=== PATIENT | female | born 1940 | race Caucasian/White ===

== ENCOUNTER → 2020-01-20 09:22 | Outpatient (CLI) | payer MEDICARE, SELFPAY ==
--- NOTE | ~2020-01-20 | MM_ITS ---
Correction: Additional spot compression and mediolateral views with possible follow-up breast ultraso und recommended. Reviewed, dictated and finalized at location A.
--- NOTE | ~2020-01-20 | MM_ITS ---
EXAMINATION: MM screening rafita BI w pedro luis HISTORY: Screening mammogram TECHNIQUE: Craniocaudal and mediolateral oblique 3-D tomosynthesis images were obtained and synthetic 2-D images were generated. CAD analysis was submitted and interpreted. COMPARISON: Comparison to multiple prior studies sequentially, with oldest reviewed study dated 05/11. BREAST PARENCHYMAL COMPOSITION: There are scattered areas of fibroglandular density. FINDINGS: There is a focal asymmetry lateral aspect of the right breast on CC view. The left breast i s stable without evidence for malignancy. IMPRESSION: 1. Focal right breast asymmetry laterally. 2. Additional mammographic views and possible breast ultrasound are recommended. BI-RADS Category 0: Incomplete: Needs additional imaging evaluation. Reviewed, dictated and finalized at location A. BRANDER IMPRESSION: 1. Focal right breast asymmetry laterally. 2. Additional mammographic views and possible breast ultrasound are recommended . BI-RADS Category 0: Incomplete: Needs additional imaging evaluation.
== END ==
PROVIDERS: Visit Provider Internal Medicine
DX: Z12.31 Encounter for screening mammogram for malignant neoplasm of breast (principal); R92.8 Other abnormal and inconclusive findings on diagnostic imaging of breast
CPT/HCPCS: 77063; 77067

== ENCOUNTER → 2020-02-03 09:05 | Outpatient (CLI) | payer MEDICARE, SELFPAY ==
--- NOTE | ~2020-02-03 | MMUS_ITS ---
EXAMINATION: MM diagnostic mammo unilat RT, US breast RT limited HISTORY: Follow-up right breast asymmetry TECHNIQUE: Additional 3-D tomosynthesis images of the right breast were performed and synthetic 2-D i mages were generated. CAD analysis was submitted and interpreted. High resolution right breast ultras ound was performed. COMPARISON: Comparison to multiple prior studies sequentially, with oldest reviewed study dated 05/13. FINDINGS: MAMMOGRAPHIC FINDINGS: Focal asymmetry laterally in the right breast is less dense with spot compression on CC view. No amanda esponding abnormality is identified on medial lateral view. There are surgical changes in the upper c entral aspect of the right breast. No mammographic evidence for malignancy in the right breast. ULTRASOUND: Right breast ultrasound: At 10:00, 5 cm from the nipple there is a 4 mm intramammary lymph node. No suspicious sonographic abn ormalities to suggest malignancy. IMPRESSION: 1. No mammographic or sonographic evidence for malignancy in the right breast. 2. Routine yearly screening mammogram and regular clinical breast examination are recommended. BI-RADS Category 2: Benign finding(s). Reviewed, dictated and finalized at location A. IMPRESSION: 1. No mammographic or sonographic evidence for malignancy in the right breast. 2. Routine yearly screening mammogram and regular clinical breast examination a re recommended. BI-RADS Category 2: Benign finding(s).
== END ==
PROVIDERS: PCP Internal Medicine; Visit Provider Internal Medicine
DX: R92.8 Other abnormal and inconclusive findings on diagnostic imaging of breast (principal)
CPT/HCPCS: 76642; 77065

== ENCOUNTER 2020-07-19 08:13 | Outpatient (CLI) | payer MEDICARE, SELFPAY ==
--- NOTE | ~2020-07-19 | CT_ITS ---
EXAMINATION: CT shoulder LT wo con DATE: 07/19/2020 08:45 INDICATION: Osteoarthritis of left shoulder. TECHNIQUE: Computed tomography (CT) of the left shoulder was performed without intravenous contrast. Automated exposure control and iterative reconstruction technique were employed. The dose-length prod uct was 479.95 mGy-cm. COMPARISON: Left shoulder radiographs 07/06/2020 FINDINGS: Cardiomegaly is noted. There are coronary artery calcifications. There are calcifications o f aortic valve. No pericardial effusion. The acromion undersurface is flat in morphology (type I). Th ere is mild acromioclavicular joint osteoarthritis. There is severe glenohumeral joint osteoarthritis . There is no asymmetric fatty atrophy of the rotator cuff muscle bellies. There is kyphosis of thora cic spine with mild chronic anterior wedging of multiple vertebral bodies. There is severe cervical a nd thoracic spondylosis. There is a surgical clip in left breast. IMPRESSION: 1. Severe left glenohumeral joint osteoarthritis. Reviewed, dictated and finalized at location A.
== END 2020-07-19 08:14 | disposition home or self-care (01) ==
LOC: ANHIMG 08:20
PROVIDERS: PCP Internal Medicine; Visit Provider Orthopaedic Surgery
DX: M19.012 Primary osteoarthritis, left shoulder (principal)
CPT/HCPCS: 36415; 73200; 80048; 85025; 85610; 85730; 87081; 93005

== ENCOUNTER 2020-07-19 10:00 | Outpatient (CLI) | payer MEDICARE, SELFPAY ==
--- NOTE | 2020-07-19 11:24 | ECG_ITS ---
Measurements Intervals [place] Rate: 45 P: -18 WI: 192 QRS: -33 QRSD: 130 T: 79 QT: 464 QTc: 402 Interpretive Statements SINUS BRADYCARDIA ATRIAL PREMATURE COMPLEX LEFT AXIS DEVIATION BORDERLINE AV CONDUCTION DELAY INTRAVENTRICULAR CONDUCTION DELAY LEFT VENTRICULAR HYPERTROPHY AND ST-T CHANGE LATERAL INFARCT, AGE INDETERMINATE BASELINE ARTIFACT- I, II, III, AVR, AVL, AVF ABNORMAL ECG Electronically Signed On 07-19-2020 11:42:56 CDT by Galdino Borjas D.O.
[2020-07-19 11:44] LABS: Basophils Percent Auto 0.2 % (0.2-1.2); Eosinophils Percent Auto 0.3 % (0-4.4); Hematocrit 34.1 % (37.0-47.0); Hemoglobin 11.2 g/dL (12.0-15.0); Immature Granulocyte Absolute 0.01 K/mm3 (0.00-0.031); Immature Granulocyte Percent A 0.2 % (0-0.5); Lymphocytes Absolute Auto 1.69 K/mm3 (0.9-3.2); Lymphocytes Percent Auto 26.3 % (18.3-44.2); Mean Corpuscular HGB Conc 32.8 g/dl (32-36); Mean Corpuscular Hemoglobin 30.1 pg (26-34); Mean Corpuscular Volume 91.7 fl (80-100); Mean Platelet Volume 9.2 fl (7.4-10.4); Monocytes Absolute Auto 0.5 K/mm3 (0.1-0.6); Neutrophils Absolute Auto 4.2 K/mm3 (1.3-6.7); Platelet Count Result 225 k/mm3 (150-375); Red Blood Count 3.72 M/mm3 (4.2-5.4); Red Cell Distribution Width 13.9 % (11.5-14.5); White Blood Count 6.4 K/mm3 (4.5-10.0)
[2020-07-19 11:54] LABS: Prothrombin Time 13.3 Seconds (11.1-14.7)
[2020-07-19 11:55] LABS: Partial Thromboplastin Time 27.2 SECONDS (22.3-36.8)
[2020-07-19 11:59] LABS: Anion Gap 6 mmol/L (8-16); Blood Urea Nitrogen 37 mg/dL (7-17); Calcium 8.9 mg/dL (8.4-10.2); Carbon Dioxide 27 mmol/L (22-30); Chloride 105 mmol/L (98-107); Estimated Glomerular Filt Rate 40; Glucose 92 mg/dL (65-105); Potassium 3.5 mmol/L (3.4-5.0); Sodium 138 mmol/L (137-145)
== END 2020-07-19 10:01 | disposition home or self-care (01) ==
LOC: ANHSURGERY 10:03
PROVIDERS: Anesthesiology; PCP Internal Medicine; Visit Provider Orthopaedic Surgery
DX: M19.012 Primary osteoarthritis, left shoulder (principal); I10 Essential (primary) hypertension; N28.9 Disorder of kidney and ureter, unspecified; Z01.818 Encounter for other preprocedural examination; I45.9 Conduction disorder, unspecified
CPT/HCPCS: 36415; 80048; 85025; 85610; 85730; 87081; 93005

== ENCOUNTER 2020-08-12 00:41 | Outpatient (CLI) | payer MEDICARE, SELFPAY ==
[2020-08-14 12:00] LABS: SARS-CoV-2 RNA PCR Positive
== END 2020-08-12 00:42 | disposition home or self-care (01) ==
LOC: ANHCOVIDDT 00:41
PROVIDERS: PCP Internal Medicine; Visit Provider Orthopaedic Surgery
DX: Z01.812 Encounter for preprocedural laboratory examination (principal); U07.1 COVID-19
CPT/HCPCS: 87635; C9803; U0003

== ENCOUNTER 2020-08-30 00:35 | Outpatient (CLI) | payer MEDICARE, SELFPAY ==
[2020-08-31 13:52] LABS: SARS-CoV-2 RNA PCR Positive
== END 2020-08-30 00:36 | disposition home or self-care (01) ==
LOC: ANHCOVIDDT 00:36
PROVIDERS: PCP Internal Medicine; Visit Provider Orthopaedic Surgery
DX: Z01.812 Encounter for preprocedural laboratory examination (principal); U07.1 COVID-19
CPT/HCPCS: 87635; C9803; U0003

== ENCOUNTER 2021-04-03 13:14 | Outpatient (CLI) | payer MEDICARE, SELFPAY ==
--- NOTE | ~2021-04-03 | CT_ITS ---
EXAMINATION: CT shoulder RT wo con DATE: 04/03/2021 14:08 INDICATION: Right shoulder primary osteoarthritis. TECHNIQUE: Computed tomography (CT) of the right shoulder was performed without intravenous contrast. Automated exposure control and iterative reconstruction technique were employed. The dose-length pro duct was 469.33 mGy-cm. COMPARISON: Right shoulder radiographs 03/28/2021 FINDINGS: Bone alignment is normal. No fracture. There is moderate osteoarthritis of acromioclavicula r joint. There is severe osteoarthritis of glenohumeral joint including glenoid bone volume loss. The re is a moderate-sized glenohumeral joint effusion. There is mild fatty atrophy of supraspinatus and subscapularis muscle bellies. IMPRESSION: 1. Severe glenohumeral joint osteoarthritis. 2. Moderate-sized glenohumeral joint effusion. Reviewed, dictated and finalized at location A.
== END 2021-04-03 13:15 | disposition home or self-care (01) ==
PROVIDERS: PCP Internal Medicine; Visit Provider Orthopaedic Surgery
DX: M19.011 Primary osteoarthritis, right shoulder (principal); M25.411 Effusion, right shoulder
CPT/HCPCS: 73200

== ENCOUNTER 2021-04-25 13:23 | Outpatient (CLI) | payer MEDICARE, SELFPAY ==
[2021-04-25 14:56] LABS: Basophils Percent Auto 0.6 % (0.2-1.2); Eosinophils Absolute Auto 0.1 K/mm3 (0-0.3); Eosinophils Percent Auto 2.1 % (0-4.4); Hemoglobin 11.8 g/dL (12.0-15.0); Immature Granulocyte Absolute 0.01 K/mm3 (0.00-0.031); Immature Granulocyte Percent A 0.2 % (0-0.5); Lymphocytes Absolute Auto 1.37 K/mm3 (0.9-3.2); Mean Corpuscular HGB Conc 31.9 g/dl (32-36); Mean Corpuscular Hemoglobin 30.2 pg (26-34); Mean Corpuscular Volume 94.6 fl (80-100); Mean Platelet Volume 8.7 fl (7.4-10.4); Monocytes Absolute Auto 0.5 K/mm3 (0.1-0.6); Monocytes Percent Auto 11.2 % (2.6-8.5); Neutrophils Absolute Auto 2.7 K/mm3 (1.3-6.7); Neutrophils Percent Auto 56.9 % (45.5-73.1); Platelet Count Result 217 k/mm3 (150-375); Red Blood Count 3.91 M/mm3 (4.2-5.4); Red Cell Distribution Width 13.9 % (11.5-14.5); White Blood Count 4.7 K/mm3 (4.5-10.0)
[2021-04-25 15:07] LABS: Anion Gap 9 mmol/L (8-16); Blood Urea Nitrogen 28 mg/dL (7-17); Calcium 9.5 mg/dL (8.4-10.2); Carbon Dioxide 29 mmol/L (22-30); Chloride 104 mmol/L (98-107); Estimated Glomerular Filt Rate 36; Glucose 83 mg/dL (65-105); Potassium 4.1 mmol/L (3.4-5.0); Sodium 142 mmol/L (137-145)
== END 2021-04-25 13:24 | disposition home or self-care (01) ==
LOC: ANHSURGERY 13:28
PROVIDERS: Anesthesiology; PCP Internal Medicine; Visit Provider Orthopaedic Surgery
DX: M19.011 Primary osteoarthritis, right shoulder (principal); Z51.81 Encounter for therapeutic drug level monitoring; Z79.899 Other long term (current) drug therapy; Z01.818 Encounter for other preprocedural examination
CPT/HCPCS: 36415; 80048; 85025; 86850; 86900; 86901; 87081

== ENCOUNTER → 2021-04-30 12:06 | Outpatient (CLI) | payer MEDICARE, SELFPAY ==
--- NOTE | ~2021-04-30 | MM_ITS ---
EXAMINATION: MM screening rafita BI w pedro luis HISTORY: Screening mammogram, history of bilateral breast cancer TECHNIQUE: Craniocaudal and mediolateral oblique 3-D tomosynthesis images were obtained and synthetic 2-D images were generated. CAD analysis was submitted and interpreted. COMPARISON: 02/03/2020, 01/20/2020, 10/14/2017, 10/15/2016 BREAST PARENCHYMAL COMPOSITION: There are scattered areas of fibroglandular density. FINDINGS: Stable lumpectomy changes are noted in the breasts. There is no evidence of suspicious mass , calcification, or architectural distortion to suggest malignancy in either breast. There has been n o suspicious interval change. IMPRESSION: 1. No mammographic evidence of malignancy. 2. Recommend routine screening mammography while the patient remains in good health. BI-RADS Category 2: Benign finding(s). Reviewed, dictated and finalized at location A. IMPRESSION: 1. No mammographic evidence of malignancy. 2. Recommend routine screening mammography while the patient remains in good he alth. BI-RADS Category 2: Benign finding(s).
== END ==
PROVIDERS: PCP Internal Medicine; Visit Provider Internal Medicine
DX: Z12.31 Encounter for screening mammogram for malignant neoplasm of breast (principal)
CPT/HCPCS: 77063; 77067

== ENCOUNTER → 2021-05-05 00:07 | Outpatient (CLI) | payer MEDICARE, SELFPAY ==
[2021-05-05 19:27] LABS: SARS-CoV-2 RNA PCR Negative
== END ==
PROVIDERS: PCP Internal Medicine; Visit Provider Orthopaedic Surgery
DX: Z01.812 Encounter for preprocedural laboratory examination (principal); Z20.822 Contact with and (suspected) exposure to COVID-19
CPT/HCPCS: C9803; U0003; U0005

== ENCOUNTER 2021-05-07 07:55 | Outpatient (CLI) | payer MEDICARE, SELFPAY ==
--- NOTE | ~2021-05-07 | NM_ITS ---
EXAMINATION: NM radha stress w perfusion DATE: 05/07/2021 12:17 INDICATION: Abnormal EKG TECHNIQUE: Rest images were obtained following intravenous administration of mCi Tc99m tetrofosmin (M yoview). The patient was infused intravenously with Lexiscan (Regadenoson). Then, mCi Tc99m tetrofosm in (Myoview) was administered intravenously, and stress images were obtained. Data was reconstructed into short axis and horizontal and vertical long axis SPECT images. Gated SPECT images were also obta ined. COMPARISON: None. FINDINGS: Possible small fixed mild perfusion defect at the apical and apical lateral segments seen o n the non gated stress and rest images which nearly normalizes on the gated stress images particularl y on the images during systole. No reversible ischemia. There is normal left ventricular chamber size , wall motion and ejection fraction. Left ventricular ejection fraction measures 60%. IMPRESSION: 1. Mild nonreversible perfusion defect at the apical and apical lateral segments on non gated imaging which appears to nearly normalize on the gated stress images, equivocal for small mild infarct versu s artifact. No reversible ischemia. 2. Left ventricular ejection fraction measuring 60%. Reviewed, dictated and finalized at location A. IMPRESSION: 1. Mild nonreversible perfusion defect at the apical and apical lateral segment s on non gated imaging which appears to nearly normalize on the gated stress im ages, equivocal for small mild infarct versus artifact. No reversible ischemia. 2. Left ventricular ejection fraction measuring 60%.
--- NOTE | 2021-05-07 08:33 | EST_ITS ---
Patient Info Name: Karen Trammell Age: 80 years : 1940 Gender: Female Ht: 67 in Wt: 155 lbs BSA: 1.83 m2 Exam Date: 05/07/2021 9:10 AM Exam Location: [facility] Stress Patient Status: Outpatient Admit Date: 05/07/2021 Staff Ordering Physician: Omar Romero MD Attending Provider: Omar Romero MD Exercise Technologist: Shameka Reyes RDCS Exercise Physician: Galdino Borjas DO Exam Type: CA stress radha w NM Study Info Indications R94.31 - Abnormal electrocardiogram ECG EKG A regadenoson stress test was performed. Summary 1. 1. Negative lexiscan stress test for ischemic ST changes by ECG criteria. 2. 2. Baseline hypertension. 3. 3. Nuclear scan to follow and will be reported separately. Please correlate with it. 4. 4. Patient informed of the above results. Protocol: Lexiscan Stress ECG Details Stage: REST Duration (min): 6 min : 11 sec HR (bpm): 69 SBP (mmHg): 171 DBP (mmHg): 87 Stage: REST Duration (min): 12 min : 58 sec HR (bpm): 65 SBP (mmHg): 171 DBP (mmHg): 87 Stage: STAGE 1 Duration (min): 1 min : 0 sec HR (bpm): 75 SBP (mmHg): 141 DBP (mmHg): 80 Stage: RECOVERY Duration (min): 1 min : 0 sec HR (bpm): 76 SBP (mmHg): 156 DBP (mmHg): 73 Stage: RECOVERY Duration (min): 2 min : 0 sec HR (bpm): 77 SBP (mmHg): 156 DBP (mmHg): 73 Stage: RECOVERY Duration (min): 3 min : 0 sec HR (bpm): 71 SBP (mmHg): 157 DBP (mmHg): 71 Stage: RECOVERY Duration (min): 3 min : 3 sec HR (bpm): 72 SBP (mmHg): 157 DBP (mmHg): 71 Rest HR: 65 bpm Peak HR: 81 bpm Rest Sys BP: 171 mmHg Peak Sys BP: 157 mmHg Max Pred HR: 140 bpm % Max Pred HR: 58 % Target HR: 119 bpm Max RPP: 12,717 bpm*mmHg Termination Reason: Completed protocol Cardiac Symptoms: Shortness of breath Total Time: 1 min : 0 sec Rest Joel BP: 87 mmHg Peak Joel BP: 71 mmHg Total Dose: 0.4 mg Resting ECG Sinus rhythm with sinus arrhythma, PAC's, IVCD, LVH. Stress ECG No ST changes. Arrhythmias None. Report Signatures
== END 2021-05-07 07:56 | disposition home or self-care (01) ==
LOC: ANHCARD 07:57
PROVIDERS: PCP Internal Medicine; Visit Provider Orthopaedic Surgery
DX: R94.31 Abnormal electrocardiogram [ECG] [EKG] (principal)
CPT/HCPCS: 78452; 93017; A9502; J2785

== ENCOUNTER 2021-05-08 00:10 | Day surgery (SDC) | payer MEDICARE, SELFPAY ==
[2021-04-25 13:47] VITALS: BP 139/68; PULSE 63; RESP 18; TEMP 37.3; O2SAT 97; BMI 24.3
[2021-05-08] VITALS (14 sets, daily range): BP systolic 124–148; BP diastolic 48–77; PULSE 52–76; RESP 14–16; TEMP 36.1–36.5; O2SAT 88–100
--- NOTE | ~2021-05-08 | XR_ITS ---
EXAMINATION: XR shoulder RT min 2V DATE: 05/08/2021 10:41 INDICATION: Postoperative evaluation following right reverse total shoulder arthroplasty. TECHNIQUE: AP internally and externally rotated, AP oblique externally rotated and transscapular Y vi ews of the right shoulder were obtained. COMPARISON: None FINDINGS: Noncemented reverse right total shoulder arthroplasty which is in near-anatomic alignment. Expected p ostoperative gas in the surrounding soft tissues. No fracture. Mild right acromioclavicular osteoarth ritis. Multiple surgical clips at the right axilla. Soft tissues are unremarkable. IMPRESSION: Expected appearance post right reverse total shoulder arthroplasty which is in near-anatomic alignmen t. Reviewed, dictated and finalized at location A. IMPRESSION: Expected appearance post right reverse total shoulder arthroplasty which is in near-anatomic alignment.
[2021-05-08] MEDS: TRANEXAMIC ACID 1,000MG/ISO100 1,000 MG/100 ML BAG 200 MG IVPB (06:34)
[2021-05-08] MEDS: ACETAMINOPHEN 500 MG TABLET 1000 MG PO (06:34)
[2021-05-08] MEDS: LACTATED RINGERS 1,000 ML 30 ML IV CONT ×2 (06:45→10:24)
--- NOTE | 2021-05-08 06:55 | WPDANESEPPF ---
Anes - Initial Pre Proc Eval Procedure: Operation Date: 05/08/21 07:30 Proposed Procedures p Right Total Reverse Shoulder Arthroplasty - Omar Romero MD Date/Time: 05/08/21 06:55 Surgeon: Omar Romero MD Pre Op Diagnosis: Right Shoulder PRIMARY OA Patient Data Age: 80 Gender: F Height: 1.7 m Weight: 70.5 kg Last Vital Signs Temp 37.3 C 04/25/21 13:47 Pulse 63 04/25/21 13:47 Resp 18 04/25/21 13:47 BP 139/68 04/25/21 13:47 Pulse Ox 97 04/25/21 13:47 Allergies Allergy/AdvReac Type Severity Reaction Status Date / Time levofloxacin AdvReac Diarrhea Verified 04/25/21 13:38 Home Medications Medication Instructions Recorded Confirmed Type lactobacillus combination no.9 4 4,000 mmu cells PO BID 04/03/20 04/25/21 History billion cell capsule multivitamin 1 tablet PO DAILY 04/03/20 04/25/21 History ascorbic acid (vitamin C) [Vitamin 500 mg PO DAILY 07/19/20 04/25/21 History C] cholecalciferol (vitamin D3) 50 mcg PO DAILY 07/19/20 04/25/21 History [Vitamin D3] hydrocodone-acetaminophen 1 tablet PO Q6-8H PRN 07/19/20 04/25/21 History loperamide [Imodium A-D] 8 mg PO BID 07/19/20 04/25/21 History potassium chloride 10 meq PO DAILY 07/19/20 04/25/21 History quinapril-hydrochlorothiazide 1 tablet PO QACLUNCH 07/19/20 04/25/21 History gabapentin 300 mg capsule 300 mg PO HS cap 08/09/20 04/25/21 History aspirin [Adult Aspirin EC Low 81 mg PO DAILY 04/25/21 04/25/21 History Strength] cinnamon bark [Cinnamon] 500 mg PO DAILY 04/25/21 04/25/21 History sulfamethoxazole-trimethoprim 1 tablet PO BID 04/25/21 04/25/21 History vitamin E mixed [Natural Vitamin E] 400 unit PO DAILY 04/25/21 04/25/21 History Other Studies: IMPRESSION: 1. Mild nonreversible perfusion defect at the apical and apical lateral segments on non gated imaging which appears to nearly normalize on the gated stress images, equivocal for small mild infarct versus artifact. No reversible ischemia. 2. Left ventricular ejection fraction measuring 60%. Patient hx anesthesia problems: none Family hx anesthesia problems: none PMFSH Past Medical History Medical History Breast cancer Colon cancer Discitis (~2020) History of kidney cancer History of treatment for malignancy History of vaginal delivery x 4 Primary osteoarthritis of right knee Surgical History Surgical History History of bladder surgery History of nephrectomy Family History Family History Sibling Patient's brother is Social History Social History Smoking status: Never smoker Second hand tobacco smoke exposure: No Alcohol intake: current Substance use: never Living arrangements: with family Additional living arrangements comments: HUSB Spiritual care concerns: No Anes - Eval Final PreProcedure Day of Procedure 05/08/21 06:55 Patient weight: normal Heart: regular rate and rhythm Lungs: clear to auscultation and normal air movement Airway: Mallampati scale class II Neurological: alert and oriented Last oral intake: >/= 8 hours ASA classification: III Emergent: no Anesthetic plan: proceed Anesthesia type and monitoring: general ETT Informed Consent: The patient's anesthetic plan and its attendant risks and benefits were discussed with the patient/family/POA. Questions were solicited and answers provided to the satisfaction of the patient/family/POA.
--- NOTE | 2021-05-08 07:19 | WPDHPUPDATE1 ---
History and Physical Update Update Date/Time: 05/08/21 07:19 History and Physical has been reviewed, including an updated exam of the patient. There are NO changes in the patient's condition. Risks, benefits, and alternatives have been discussed and questions answered. Patient agrees to proceed with procedure.
--- NOTE | 2021-05-08 07:27 | WPDANESPNB ---
Anes - Peripheral Nerve Block Date/Time: 05/08/21 07:27 I have discussed with the patient/family/POA the placement of a peripheral nerve block for post-operative pain management, including associated risks, benefits, complications, and side effects. Alternative methods of post-operative analgesia were detailed. Questions were solicited and answers provided to the satisfaction of the patient/family/POA. Time-Out: A pre-procedural Time-Out was completed immediately before starting the procedure and confirmed: Patient Identification, Site, Procedure, Patient Position and the Availability of Requisite Equipment. Clinical Indications: Acute post-operative pain management requested by the operative surgeon. Nerve Block Insertion Note Anes-nerve block: supraclavicular right Patient position: supine Skin prep: chlorhexidine Needle: 22 gauge, stimulating, insulated echogenic needle. Needle length: 80 mm Technique: ultrasound (in plane) Injectate: bupivacaine 0.5% with epi 5 mcg/ml (20cc) Observations: tolerated well Complications: none Procedure start time:: 715 Procedure end time::
[2021-05-08] MEDS: ceFAZolin 2 GM/D5W 50 ML 2 GM/50 ML BAG IVPB (07:32)
--- NOTE | 2021-05-08 10:36 | W.PM.PROC2 ---
Procedure Note - Detailed Date of Procedure 05/08/21 Pre-op Diagnosis Right Shoulder PRIMARY OA Post-op Diagnosis same Procedure Performed Reverse total shoulder arthroplasty, right. Surgeon Omar Romero MD Motion Designer Jumana Burgess PA-C Anesthesia general and regional Indications Severe rotator cuff arthropathy. Pain not responsive to conservative care. Findings Severe posterior superior erosion. Anterior superior positioning of the humerus. Very thin. Extensive osteophytes around the glenoid. Bone quality fair. The full wedge 15 degree augment was placed at the 10:30 position posterior-superior. This matched the preoperative templating on the 3 dimensional software. Her [place] retroversion was 50?. This was adjusted with more bone resection anteriorly to bring the retroversion to 35?. The humeral component was inset to the level of the cuff insertion in order to obtain appropriate soft tissue tension. Description of Procedure Physician treasury assistant, Jumana Burgess PA-C, required for surgery; including patient positioning, draping, tissue retraction, maintaining instrument position, wound closure, and dressing placement. OPERATIVE DETAILS: The patient was given an interscalene block in the preoperative area. Preoperative antibiotics were given. The patient was transferred to the operating room and a general anesthetic was administered. The beach chair position was used at 35 degrees. All bony prominences were padded. The head was carefully stabilized on the McConnel head baker. A sterile prep and drape was performed in the usual manner with ChloraPrep. A longitudinal incision was created at the anterior shoulder just lateral to the deltopectoral interval. Careful dissection was performed to expose the interval and protect the cephalic vein. The vein was retracted medially. The upper border of the pectoralis was left in situ. Anterior circumflex vessel branches were suture ligated. The biceps was tenodesed. A subscapularis tenotomy was performed. The inferior capsule was released, exposing the humeral head. Osteophytes were removed. Care was taken to stay on bone to protect the axillary nerve. The anatomic head cut was taken with the oscillating saw. Her [place] retroversion was 50?. This was adjusted with more bone anteriorly to bring the retroversion to 35?. Sounding and broaching was performed. The neck anteversion and inclination were carefully assessed. The cut protector was placed, and attention was turned to the glenoid. Retractors were placed. Releases were carried out for exposure. The subscapularis was mobilized, the inferior capsule and long head of triceps released, and the superior and middle glenohumeral ligaments released as well. Labrum was primarily calcified and this was carefully removed. The sizing template was used to assess the baseplate position low on the glenoid. The wedge augment was placed at approximately the 10:30 position to correct the superior inclination. A few extra degrees of inclination correction was added according to preoperative templating. A guide pin was placed. Minimal reaming was used to accomplish a flat surface without violating the subchondral bone. Version was corrected according to preoperative templating. The boss, and central screw were drilled. The real component was screwed into position. Supplemental locking screws were placed superiorly and inferiorly. The glenosphere was impacted into the taper, and secured with the locking screw. The humeral components were trialed. The real humeral stem and tray, and insert were impacted into position. The shoulder was copiously irrigated periodically with pulsatile lavage. The shoulder was reduced and stability confirmed. The deltopectoral space was reapproximated with number 2 Vicryl. The remained tissue was closed with 0 Quill and 2-0 Quill running suture and steri-strips. A sterile dressing and shoulder immobilizer was placed. The patient was transferred
--- NOTE | 2021-05-08 11:30 | ADMGEN ---
This patient, Karen Trammell, was admitted to 2 Medical Room 242-01. Patient/family oriented to hospital policies and general routines including ID bracelet, bed and alarms, visiting hours, pain management, procedures, bathroom and other care routines, personal items, smoking policy, room service/diet, and visiting hours. Information on how to activate the Rapid Response Team has been discussed. Patient/Family are encouraged to report perceived risks to care and to ask questions if they do not understand what they are told or what they should do.
[2021-05-08] MEDS: KETOROLAC 15 MG/ML VIAL (*BKC) IV PUSH ×2 (12:58→17:37)
--- NOTE | 2021-05-08 13:32 | PCOTNOTE ---
OT evaluation attempted. Patient requesting to wait until tomorrow to dress and complete OT. Will attempt OT evaluation tomorrow morning.
--- NOTE | 2021-05-08 14:32 | PCPTNOTE ---
Instructed pt and in don/doff slingshot immobilizer and adjusted it. Verbally instructed in don/doff procare immobilizer. Both verbalized understanding.
[2021-05-08] MEDS: lisinopriL 10 MG TABLET PO (14:48)
[2021-05-08] MEDS: hydroCHLOROthiazide 12.5 MG CAPSULE PO (14:48)
[2021-05-08] MEDS: DOCUSATE SODIUM 100 MG CAPSULE PO (17:36)
[2021-05-08] MEDS: ACIDOPHILUS/BULGARICUS CHEWABLE TABLET 1 TABLET PO (17:37)
[2021-05-08] MEDS: LOPERAMIDE HCL 2 MG CAPSULE 6 MG PO (17:38)
--- NOTE | 2021-05-08 18:51 | PM.IMCN ---
Assessment and Plan Assessment and plan (1) Status post reverse arthroplasty of shoulder: Code(s): Z96.619 - Presence of unspecified artificial shoulder joint Status: Acute Assessment and Plan: Postop care per Ortho. Pain management per Ortho. DVT prophylaxis per ortho. (2) HTN (hypertension), benign: Code(s): I10 - Essential (primary) hypertension Status: Chronic Assessment and Plan: Patient was continued on her home quinapril with hydrochlorothiazide. Monitor daily labs. HPI Data of Consult Consult date: 05/08/21 Requesting Physician: Omar Romero MD Primary Care Provider: Ambrocio Nascimento, Consult Narrative Narrative: Karen Trammell is a 80 year old female this is an 80-year-old female patient who had severe [id number] to her right shoulder. The patient stated that she had a stress test prior to the surgery and was told that it was normal. The patient underwent a reverse total shoulder arthroplasty per Dr. Taylor person today. Please see postop notes. The patient was dozing off during the interview. The patient stated she was feeling so tired because she had been able to sleep with the pain in her right shoulder. The patient stated she has not been vaccinated for COVID-19. Nor has she had COVID-19. The patient is being admitted for sdc and the hospitalist group is a consultation. Review of Systems Review of Systems: All systems reviewed & are unremarkable except as noted in HPI and below Constitutional: Constitutional: Reports as per HPI and Reports no additional constitutional complaints Eyes: Eyes: Reports as per HPI and Reports no additional eye complaints ENT: Reports system reviewed and no additional complaints, except as documented and Reports Normal hearing present Cardiovascular: Cardiovascular: Reports no additional cardiovascular complaints Respiratory: Respiratory: Reports no additional respiratory complaints and Reports no additional respiratory complaints Gastrointestinal: Gastrointestinal: Reports as per HPI and Reports no additional gastrointestinal complaints Musculoskeletal: Musculoskeletal: Reports no additional musculoskeletal complaints Integumentary/Breasts: Skin/Breast: Reports system reviewed and no additional complaints, except as docu and Reports as per HPI Neurologic: Reports system reviewed and no additional complaints, except as documented, Reports as per HPI and Reports Normal hearing present Psychiatric: Psychiatric: Reports no additional psychiatric complaints and Reports as per HPI Endocrine: Endocrine: Reports no additional endocrine complaints Hematologic/Lymphatic: Hematologic/Lymphatic: Reports no additional hematologic/lymphatic complaints Allergic/Immunologic: Allergic/Immunologic: Reports no additional allergic/immunologic complaints [facility] Past Medical History Medical History (Updated 05/08/21 @ 19:25 by Kady Head NP) Breast cancer Colon cancer Discitis (~2019) History of kidney cancer History of non-Hodgkin's lymphoma History of skin cancer History of treatment for malignancy History of vaginal delivery x 4 HTN (hypertension), benign Primary osteoarthritis of right knee Surgical History Surgical History (Updated 05/08/21 @ 18:58 by Kady Head NP) History of bladder surgery History of nephrectomy Status post reverse arthroplasty of shoulder 05/08/[address] skaggs Family History Family History (Updated 05/08/21 @ 19:10 by Kady Head NP) Sibling Patient's brother is Sibling Acute myocardial infarction Social History Social History (Updated 05/08/21 @ 19:15 by Kady Head NP) Social History: The patient lives with her . He is the durable power litigation attorney for healthcare. The patient is stating that she would like to be a DNR. The patient has 4 children. 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
[2021-05-08] MEDS: GABAPENTIN 300 MG CAPSULE PO (20:20)
[2021-05-09] MEDS: KETOROLAC 15 MG/ML VIAL (*BKC) IV PUSH ×2 (00:07→06:10)
[2021-05-09 00:55] VITALS: BP 119/49; PULSE 92; RESP 16; TEMP 36.1; O2SAT 98
[2021-05-09 01:45] VITALS: PULSE 64; RESP 16; O2SAT 95
[2021-05-09 05:20] VITALS: BP 113/53; PULSE 72; RESP 16; TEMP 36.1; O2SAT 93
[2021-05-09 05:40] LABS: Basophils Percent Auto 0.1 % (0.2-1.2); Hematocrit 29.6 % (37.0-47.0); Hemoglobin 9.6 g/dL (12.0-15.0); Immature Granulocyte Absolute 0.03 K/mm3 (0.00-0.031); Immature Granulocyte Percent A 0.4 % (0-0.5); Lymphocytes Absolute Auto 1.34 K/mm3 (0.9-3.2); Lymphocytes Percent Auto 16.6 % (18.3-44.2); Mean Corpuscular HGB Conc 32.4 g/dl (32-36); Mean Corpuscular Hemoglobin 29.6 pg (26-34); Mean Corpuscular Volume 91.4 fl (80-100); Monocytes Absolute Auto 0.9 K/mm3 (0.1-0.6); Monocytes Percent Auto 10.6 % (2.6-8.5); Neutrophils Absolute Auto 5.8 K/mm3 (1.3-6.7); Neutrophils Percent Auto 72.3 % (45.5-73.1); Platelet Count Result 199 k/mm3 (150-375); Red Blood Count 3.24 M/mm3 (4.2-5.4); Red Cell Distribution Width 13.8 % (11.5-14.5); White Blood Count 8.1 K/mm3 (4.5-10.0)
[2021-05-09 05:53] LABS: Alanine Aminotransferase 23 U/L (4-35); Alkaline Phosphatase 87 U/L (38-126); Anion Gap 4 mmol/L (8-16); Aspartate Amino Transferase 50 U/L (14-36); Bilirubin,Total 0.4 mg/dL (0.2-1.3); Blood Urea Nitrogen 32 mg/dL (7-17); Calcium 8.6 mg/dL (8.4-10.2); Carbon Dioxide 27 mmol/L (22-30); Chloride 107 mmol/L (98-107); Estimated CRCL calculation 30 ml/min; Estimated Glomerular Filt Rate 39; Glucose 99 mg/dL (65-105); Potassium 4.7 mmol/L (3.4-5.0); Sodium 138 mmol/L (137-145)
[2021-05-09] MEDS: ACIDOPHILUS/BULGARICUS CHEWABLE TABLET 1 TABLET PO (08:22)
[2021-05-09] MEDS: LOPERAMIDE HCL 2 MG CAPSULE 8 MG PO (08:22)
[2021-05-09] MEDS: CHOLECALCIFEROL 1,000 UNITS TABLET 2000 UNITS PO (08:22)
[2021-05-09] MEDS: ASPIRIN 81 MG ENTERIC TABLET PO (08:22)
[2021-05-09] MEDS: DOCUSATE SODIUM 100 MG CAPSULE PO (08:23)
[2021-05-09] MEDS: MULTIVITAMINS THERAPEUTIC TAB (*BKC) 1 TABLET PO (08:23)
[2021-05-09] MEDS: POTASSIUM CHLORIDE 10 MEQ TABLET.ER PO (08:23)
[2021-05-09] MEDS: HYDROcodone/acetaminophen (*CRX) 5-325 MG TABLET 2 TAB PO (08:23)
--- NOTE | 2021-05-09 09:31 | PM.IMPN ---
Progress Note: A&P Assessment and Plan (1) HTN (hypertension), benign: Code(s): I10 - Essential (primary) hypertension Status: Chronic Assessment and Plan: Pain control, continue hydrochlorothiazide and lisinopril, monitor vital signs (2) Status post reverse arthroplasty of shoulder: Code(s): Z96.619 - Presence of unspecified artificial shoulder joint Status: Acute Assessment and Plan: Pain control, plan for discharge and follow-up with orthopedics as an outpatient. Subjective Date/time seen: 05/09/21 09:31 Patient is resting comfortably, right shoulder discomfort is improving, no other complaints. Exam Const: General: cooperative and no acute distress HENMT: Head: normal to inspection Eyes: General: appearance normal, both eyes and all related structures Neck: Neck: normal visual inspection Chest: Chest palpation & inspection: normal inspection of the chest Resp: Effort & Inspection: normal respiratory effort Cardio: Jugular venous distension: no JVD Rate: regular rate GI: Inspection: normal to inspection and non-distended Objective Data Vital Signs Vital Signs: Vital Signs - 24 hr 05/08/21 10:24 05/08/21 10:35 05/08/21 10:50 Temperature 97.1 F L Pulse Rate 62 76 67 Respiratory Rate 16 14 14 Blood Pressure 124/48 L 137/56 L 136/53 L Pulse Oximetry 98 95 92 05/08/21 10:55 05/08/21 11:05 05/08/21 11:20 Temperature 97.3 F L Pulse Rate 57 L 56 L Respiratory Rate 14 14 Blood Pressure 126/54 L 128/50 L Pulse Oximetry 88 L 94 95 05/08/21 11:35 05/08/21 11:50 05/08/21 12:20 Temperature 97.3 F L 97.0 F L 97.0 F L Pulse Rate 54 L 52 L 54 L Respiratory Rate 16 16 16 Blood Pressure 133/54 L 140/53 L 147/55 H Pulse Oximetry 100 99 99 05/08/21 13:20 05/08/21 17:20 05/08/21 20:00 Temperature 97.7 F 97.2 F L Pulse Rate 53 L 56 L 56 L Respiratory Rate 16 16 16 Blood Pressure 141/59 H 144/77 H Pulse Oximetry 95 90 90 05/08/21 21:20 05/09/21 00:55 05/09/21 01:45 Temperature 96.9 F L 96.9 F L Pulse Rate 57 L 92 64 Respiratory Rate 16 16 16 Blood Pressure 127/56 L 119/49 L Pulse Oximetry 99 98 95 05/09/21 05:20 Temperature 96.9 F L Pulse Rate 72 Respiratory Rate 16 Blood Pressure 113/53 L Pulse Oximetry 93 Intake/Output Intake/Output: Intake & Output 05/06/21 05/07/21 05/08/21 05/09/21 23:59 23:59 23:59 23:59 Intake Total 250 740 Output Total 300 600 Balance -50 140 Meds/Results Medications: Active Medications Generic Name Dose Route Start Last Admin Trade Name Freq PRN Reason Stop Dose Admin Hydrocodone Bitart/Acetaminophen 1 tab 05/08/21 11:24 Hydrocodone/Acetaminophen (*Crx) 5-325 Mg Tablet PO Q3H PRN Pain Rated 4-6 Hydrocodone Bitart/Acetaminophen 2 tab 05/08/21 11:24 05/09/21 08:23 Hydrocodone/Acetaminophen (*Crx) 5-325 Mg Tablet PO 2 tab Q6H PRN Administration Pain Rated 7-10 Aspirin 81 mg 05/09/21 09:00 05/09/21 08:22 Aspirin 81 Mg Enteric Tablet PO 81 mg DAILY JIHAN Administration Cyclobenzaprine HCl 10 mg 05/08/21 11:24 Cyclobenzaprine Hcl 10 Mg Tablet PO Q8H PRN Muscle Spasm Docusate Sodium 100 mg 05/08/21 17:00 05/09/21 08:23 Docusate Sodium 100 Mg Capsule PO 100 mg BID JIHAN Administration Gabapentin 300 mg 05/08/21 21:00 05/08/21 20:20 Gabapentin 300 Mg Capsule PO 300 mg HS JIHAN Administration Hydrochlorothiazide 12.5 mg 05/08/21 12:00 05/08/21 14:48 Hydrochlorothiazide 12.5 Mg Capsule PO 12.5 mg DAILY@1200 JIHAN Administration Ketorolac Tromethamine 15 mg 05/08/21 12:00 05/09/21 06:10 Ketorolac 15 Mg/Ml Vial (*Bkc) IV PUSH 05/09/21 12:01 15 mg Q6HR JIHAN Administration Lactobacillus Acidophilus 1 tablet 05/08/21 17:00 05/09/21 08:22 Acidophilus/Bulgaricus Chewable Tablet PO 06/07/21 17:01 1 tablet BID JIHAN Administration Lisinopril 10 mg 05/08/21 12:00 05/08/21 14:48 Lisinopril 10
[2021-05-09 10:00] VITALS: BP 118/52; PULSE 69; RESP 16; TEMP 36.4; O2SAT 97
--- NOTE | 2021-05-09 10:15 | P.PNAN_ITS ---
Anes - Prog Note Post-Op Date/Time: 05/09/21 10:15 Cardiovascular status: normal Respiratory status: normal Airway patency: baseline Mental status: baseline Post-Op hydration status: normal Vital Signs: Last Vital Signs Temp 36.1 C L 05/09/21 05:20 Pulse 72 05/09/21 05:20 Resp 16 05/09/21 05:20 BP 113/53 L 05/09/21 05:20 Pulse Ox 93 05/09/21 05:20 Pain Score (VAS): 0/10. Patient resting in bed at time of assessment, appears comfortable. I/O: Intake & Output 05/08/21 05/09/21 05/09/21 23:59 07:59 15:59 Intake Total 50 500 240 Output Total 600 Balance 50 -100 240 Laboratory Tests 05/09/21 05:13 05/09/21 05:13 05/09/21 05/09/21 05:13 05:13 WBC 8.1 RBC 3.24 L Hgb 9.6 L Hct 29.6 L MCV 91.4 MCH 29.6 MCHC 32.4 RDW 13.8 Plt Count 199 MPV 9.0 Immature Gran % (Auto) 0.4 Neut % (Auto) 72.3 Lymph % (Auto) 16.6 L [place] % (Auto) 10.6 H Eos % (Auto) 0.0 Baso % (Auto) 0.1 L Lymph # (Auto) 1.34 [place] # (Auto) 0.9 H Eos # (Auto) 0.0 Baso # (Auto) 0.0 Abs Immat Gran (auto) 0.03 Absolute Neuts (auto) 5.8 Absolute Nucleated RBC 0.0 Nucleated RBC % 0.0 Sodium 138 Potassium 4.7 Chloride 107 Carbon Dioxide 27 Anion Gap 4 L BUN 32 H Creatinine 1.30 H Estim Creat Clear Calc 30 Estimated GFR 39 L Glucose 99 Calcium 8.6 Total Bilirubin 0.4 AST 50 H ALT 23 Alkaline Phosphatase 87 Total Protein 6.0 L Albumin 3.0 L Post-procedural complaints: none Patient Feedback: Patient satisfied with anesthetic care.
--- NOTE | 2021-05-09 12:41 | PM.DS ---
DS: Admitting Diagnosis Admitting Diagnosis Admitting Diagnosis: Rotator cuff arthropathy DS: Discharge Diagnosis Discharge Diagnosis (1) Status post reverse arthroplasty of shoulder: Code(s): Z96.619 - Presence of unspecified artificial shoulder joint Status: Acute Assessment and Plan: Postop day 1: Right reverse total shoulder arthroplasty. Patient tolerated procedure well. No complications. Pain manageable with pain medication. No numbness or tingling. We had a lengthy discussion regarding postoperative wound care, limitations, expectations, and exercises. Patient shows good understanding. He has had initial physical therapy and is tolerating it well. DVT prophylaxis: 81 mg baby aspirin b.i.d. for 14 days. Pain medication: Percocet. Patient has followup appointment with Dr. Romero in 3 weeks. DS: Summary Hospital Course Hospital Course: Right reverse total shoulder arthroplasty. No complications. Patient has had initial physical therapy and occupational therapy. Status at Discharge Functional status at discharge: independent ambulation Overall status at discharge: patient is progressing back to baseline Time Spent with Patient Time attestation: Total time spent providing and/or coordinating discharge services: Exam Narrative: Exam Narrative: Normal weight Female. Resting comfortably in chair. Wearing sling. Dressing dry and intact with no drainage. Moderate swelling. Moderate ecchymosis. No erythema. No hematoma. Range of motion limited due to pain. Calf nontender. Neurologic status intact. No varicosities. Distal pulses palpable. DS: Data Data Completed and Pending Labs on day of discharge: Labs from last 24 hours 05/09/21 05/09/21 05:13 05:13 WBC 8.1 RBC 3.24 L Hgb 9.6 L Hct 29.6 L MCV 91.4 MCH 29.6 MCHC 32.4 RDW 13.8 Plt Count 199 MPV 9.0 Immature Gran % (Auto) 0.4 Neut % (Auto) 72.3 Lymph % (Auto) 16.6 L [place] % (Auto) 10.6 H Eos % (Auto) 0.0 Baso % (Auto) 0.1 L Lymph # (Auto) 1.34 [place] # (Auto) 0.9 H Eos # (Auto) 0.0 Baso # (Auto) 0.0 Abs Immat Gran (auto) 0.03 Absolute Neuts (auto) 5.8 Absolute Nucleated RBC 0.0 Nucleated RBC % 0.0 Sodium 138 Potassium 4.7 Chloride 107 Carbon Dioxide 27 Anion Gap 4 L BUN 32 H Creatinine 1.30 H Estim Creat Clear Calc 30 Estimated GFR 39 L Glucose 99 Calcium 8.6 Total Bilirubin 0.4 AST 50 H ALT 23 Alkaline Phosphatase 87 Total Protein 6.0 L Albumin 3.0 L Discharge Plan Discharge Patient Disposition: Home, Self-Care Discharge Instructions: See instruction sheet Stand Alone Forms: General Discharge Instructions Follow-up/Referrals: Jumana Burgess PA [Physician Senior Accounting Associate] - Discharge Medications: New aspirin 81 mg tablet,delayed release (DR/EC) 81 mg PO BID 14 Days Qty: 28 RF: 0 oxycodone-acetaminophen 5-325 mg tablet 1 - 2 tablet PO Q4-6H MDD 6 PRN (Reason: pain) Qty: 30 RF: 0 Continued multivitamin [Daily Multi-Vitamin] Tablet 1 tablet PO DAILY RF: 0 Adult 50 Plus Probiotic 4 billion cell capsule 4,000 mmu cells PO BID RF: 0 sulfamethoxazole-trimethoprim 800-160 mg tablet 1 tablet PO BID RF: 0 cinnamon bark [Cinnamon] 500 mg Capsule 500 mg PO DAILY RF: 0 vitamin E mixed 400 unit Capsule 400 unit PO DAILY RF: 0 loperamide [Imodium A-D] 2 mg Capsule 8 mg PO BID RF: 0 hydrocodone-acetaminophen 5-325 mg tablet 1 tablet PO Q6-8H PRN (Reason: Pain) RF: 0 quinapril-hydrochlorothiazide 10-12.5 mg tablet 1 tablet PO QACLUNCH RF: 0 potassium chloride 10 mEq Tablet Extended Release 10 meq PO DAILY RF: 0 ascorbic acid (vitamin C) [Vitamin C] 500 mg Tablet 500 mg PO DAILY RF: 0 cholecalciferol (vitamin D3) [Vitamin D3] 50 mcg (2,000 unit) Capsule 50 mcg PO DAILY RF: 0 gabapentin 300 mg capsule 300 mg PO HS RF: 0 Held as
== END 2021-05-09 12:55 | disposition home or self-care (01) ==
LOC: ANHSURGERY 05:57 → ANH2MED 11:26
PROVIDERS: Nurse Practitioner; PCP Internal Medicine; Visit Provider Orthopaedic Surgery
PROC: (CPT 23472; principal; 2021-05-08 07:30)
DX: M19.011 Primary osteoarthritis, right shoulder (principal); G89.18 Other acute postprocedural pain; I10 Essential (primary) hypertension; Z79.82 Long term (current) use of aspirin; Z85.3 Personal history of malignant neoplasm of breast; Z85.038 Personal history of other malignant neoplasm of large intestine; Z85.528 Personal history of other malignant neoplasm of kidney; Z90.5 Acquired absence of kidney
CPT/HCPCS: 23472; 64415; 36415; 73030; 80048; 80053; 85025; 86850; 86900; 86901; 87081; 97110; 97116; 97161; 97165; 97530; A4565; A9270; C1776; C9803; J0171; J0690; J1100; J1885; J2270; J2370; J2405; J2704; J2795; J3010; J7120; U0003; U0005

== ENCOUNTER 2021-09-03 08:24 | Outpatient (CLI) | payer MEDICARE, SELFPAY ==
--- NOTE | ~2021-09-03 | CT_ITS ---
EXAMINATION: CT LE RT wo con DATE: 09/03/2021 09:28 INDICATION: Unilateral primary osteoarthritis at the right knee. TECHNIQUE: High resolution computed tomography (CT) of the right lower leg from the hip through the m idfoot was performed without intravenous contrast utilizing Conformis protocol. Additional sagittal a nd coronal reconstructions were performed. Automated exposure control and iterative reconstruction te chnique were employed. The dose-length product was 1834.25 mGy-cm. COMPARISON: Right knee radiographs dated 08/01/2021 FINDINGS: Tricompartmental osteoarthritis at the right knee, severe in the lateral compartment with severe join t space narrowing seen on the prior weightbearing imaging. There is some remodeling of the articular cortex at the central to lateral aspect of the lateral tibial plateau with subarticular sclerosis and cystic change. Additional subarticular sclerosis and cystic changes along the central to posterior w eightbearing lateral femoral condyle. Moderate-sized marginal osteophytes and moderate nonuniform nikki nt space narrowing at the patellofemoral compartment with subarticular cystic changes at the lateral patellar facet. Mild nonuniform joint space during which could be underestimated in the medial compar tment. Couple small bone islands at the medial and lateral femoral condyles physiologic amount of flu id in the right knee joint. Right total hip arthroplasty which appears well seated with no periprosthetic lucency to suggest loos ening or infection. Fatty atrophy of the right gluteus medias and minimus muscle bellies. There is zepeda bcutaneous varicosities extending from the right thigh to the medial aspect of the right ankle. There is prominent subcutaneous edema about the right ankle extending into the foot. Mild osteoarthritis a t the right ankle with subarticular cystic change along the medial rim of the talar dome. Polyarticul ar osteoarthritis in the visualized mid and hindfoot, severe at the second-fourth tarsal metatarsal j oints. And otherwise mild. IMPRESSION: 1. Severe lateral compartment predominant tricompartmental osteoarthritis at the right knee. Reviewed, dictated and finalized at location A. IMPRESSION: 1. Severe lateral compartment predominant tricompartmental osteoarthritis at th e right knee.
== END 2021-09-03 08:25 | disposition home or self-care (01) ==
LOC: ANHIMG 08:27
PROVIDERS: PCP Internal Medicine; Visit Provider Orthopaedic Surgery
DX: M17.11 Unilateral primary osteoarthritis, right knee (principal)
CPT/HCPCS: 73700

== ENCOUNTER 2021-09-03 10:08 | Outpatient (CLI) | payer MEDICARE, SELFPAY ==
[2021-09-03 10:54] LABS: Hematocrit 36.2 % (37.0-47.0); Hemoglobin 11.3 g/dL (12.0-15.0)
[2021-09-03 11:06] LABS: Urine Cotinine NEGATIVE
--- NOTE | 2021-09-03 11:17 | ECG_ITS ---
Measurements Intervals Sharples Rate: 59 P: 224 ME: 163 QRS: -43 QRSD: 124 T: 94 QT: 426 QTc: 424 Interpretive Statements SINUS BRADYCARDIA LEFT AXIS DEVIATION INTRAVENTRICULAR CONDUCTION DELAY LEFT VENTRICULAR HYPERTROPHY AND ST-T CHANGE CANNOT RULE OUT SEPTAL INFARCT, AGE INDETERMINATE HIGH LATERAL INFARCT, AGE INDETERMINATE BASELINE ARTIFACT- I, II, III, AVR, AVL, AVF ABNORMAL ECG Electronically Signed On 09-03-2021 11:56:14 CDT by Galdino Borjas D.O.
[2021-09-03 11:24] LABS: Albumin Level 4.3 g/dL (3.5-5.1); Estimated Glomerular Filt Rate 48
== END 2021-09-03 10:09 | disposition home or self-care (01) ==
LOC: ANHLAB 10:10
PROVIDERS: PCP Internal Medicine; Visit Provider Orthopaedic Surgery
DX: M17.11 Unilateral primary osteoarthritis, right knee (principal); Z01.818 Encounter for other preprocedural examination; I45.9 Conduction disorder, unspecified
CPT/HCPCS: 73700; 80307; 82040; 82565; 85014; 85018; 93005

== ENCOUNTER 2021-10-08 12:43 | Outpatient (CLI) | payer MEDICARE, SELFPAY ==
[2021-10-08 14:14] LABS: Basophils Percent Auto 0.3 % (0.2-1.2); Eosinophils Absolute Auto 0.1 K/mm3 (0-0.3); Eosinophils Percent Auto 1.2 % (0-4.4); Hematocrit 35.4 % (37.0-47.0); Hemoglobin 11.4 g/dL (12.0-15.0); Immature Granulocyte Absolute 0.03 K/mm3 (0.00-0.031); Immature Granulocyte Percent A 0.5 % (0-0.5); Lymphocytes Absolute Auto 1.35 K/mm3 (0.9-3.2); Lymphocytes Percent Auto 22.7 % (18.3-44.2); Mean Corpuscular HGB Conc 32.2 g/dl (32-36); Mean Corpuscular Hemoglobin 31.2 pg (26-34); Mean Platelet Volume 9.4 fl (7.4-10.4); Monocytes Absolute Auto 0.6 K/mm3 (0.1-0.6); Monocytes Percent Auto 10.3 % (2.6-8.5); Neutrophils Absolute Auto 3.9 K/mm3 (1.3-6.7); Platelet Count Result 256 k/mm3 (150-375); Red Blood Count 3.65 M/mm3 (4.2-5.4); Red Cell Distribution Width 13.7 % (11.5-14.5)
[2021-10-08 14:22] LABS: Albumin Level 4.5 g/dL (3.5-5.1)
[2021-10-08 14:24] LABS: Anion Gap 8 mmol/L (8-16); Blood Urea Nitrogen 23 mg/dL (7-17); Calcium 9.7 mg/dL (8.4-10.2); Carbon Dioxide 27 mmol/L (22-30); Chloride 104 mmol/L (98-107); Estimated Glomerular Filt Rate 43; Glucose 95 mg/dL (65-110); Potassium 3.6 mmol/L (3.4-5.0); Sodium 139 mmol/L (137-145)
[2021-10-08 14:28] LABS: Hemoglobin A1C 5.1 % (<5.7); Urine Cotinine NEGATIVE
== END 2021-10-08 12:44 | disposition home or self-care (01) ==
LOC: ANHSURGERY 12:49
PROVIDERS: Anesthesiology; PCP Internal Medicine; Visit Provider Orthopaedic Surgery
DX: M17.11 Unilateral primary osteoarthritis, right knee (principal); Z79.899 Other long term (current) drug therapy; Z01.818 Encounter for other preprocedural examination
CPT/HCPCS: 36415; 80048; 80307; 82040; 83036; 85025; 87081

== ENCOUNTER → 2021-11-03 00:39 | Outpatient (CLI) | payer MEDICARE, SELFPAY ==
[2021-11-03 18:00] LABS: SARS-CoV-2 RNA PCR Negative (Negative)
== END ==
PROVIDERS: PCP Internal Medicine; Visit Provider Orthopaedic Surgery
DX: Z01.812 Encounter for preprocedural laboratory examination (principal); Z20.822 Contact with and (suspected) exposure to COVID-19
CPT/HCPCS: C9803; U0003; U0005

== ENCOUNTER 2021-11-06 01:13 | Day surgery (SDC) | payer MEDICARE, SELFPAY ==
--- NOTE | 2021-10-08 12:51 | PC.NURSE ---
Report to the Outpatient Waiting Room, entrance under the green pavilion located off [facility], at time __0600__ on date _11/06/21__. OR Time: _0730__. - You and your visitor will be asked a series of questions to screen for COVID 19 for your protection. - A mask is required within the hospital. - Only one visitor is allowed at this time. Patient visitors will be guided where to wait when not with patient. Preoperative COVID Testing Requirements: COVID TEST SCHEDULED 11/03/21 @ 0905 No COVID Test needed if: (proof is required; if not received patient will have Rapid Test prior to entry) - Patient has received COVID Vaccine at least 14 days prior to procedure date or - Patient has positive COVID test result within last 90 days of surgery date. COVID Test needed if above criteria is not met If not COVID vaccinated a COVID test must be conducted within 72 hours of surgery and patient is asked to isolate self from time of testing until procedure. You will go to the [facility] for your COVID testing. The [facility] is located at the corner of [address] from [facility]. You will only be called if COVID results are positive and your surgeon may reschedule your elective surgery date. Patients may have clear liquids (water, carbonated beverages, clear teas, apple juice) until 3 hours prior to surgery (0430 AM) with a maximum of 20 ounces. - No food from midnight until time of surgery - Infants may have breast milk until 4 hours before surgery, infant formula 6 hours prior to surgery. - Children will be allowed to drink immediately following surgery. If applicable, please bring a bottle or sippy cup to assist with drinking. Juice, water, soda, and popsicles are readily available. For infants on formula, please bring formula the day of surgery. Pacifiers are allowed. Take the following medications with a SIP of water the morning of surgery: __PAIN PILL____ Medications to discontinue per physician _ASPIRIN-1 WEEK, ALL VITAMINS/SUPPLEMENTS-3 DAYS PRIOR TO SURGERY___ Date to take last dose__10/29/21, & 11/02/21 Please no make-up, nail grenadian, hairspray, perfume, deodorant, or body powder the day of surgery. No jewelry (including any body piercings) or valuables the day of surgery, leave them at home. Please take a shower or bath the night before, or the morning of, surgery with an antibacterial soap. Wear comfortable, loose fitting clothing. Children are encouraged to wear pajamas. - Jewelry must be removed prior to entering the operating room. Rings and piercings that are not removed may be cut off. - The hospital will not accept responsibility for valuables. - Please leave all valuables, including medications, at home the day of surgery. If you are going home after surgery, a licensed student truck driver must drive you home. - NO public transportation without another adult. - We recommend that an adult stay with you for 24 hours following discharge. - We also recommend that you do not drive, make important decision, drink alcoholic beverages, or take any drugs that were not prescribed by your health care provider for at least 24 hours after your discharge time. For Pediatric surgeries, we recommend two adults accompany the child home (only one inside the building at this time). Follow any additional instructions given to you from your surgeon. TOTAL JOINT CLASS 10/17/21 @ 1000 AM [facility] - USE MAIN ENTRANCE, LOWER LEVEL Telephone instructions given to PT and asked if any additional questions and then verbalized understanding. Patient advised to call surgeon office or pre surgery nurse liaison [phone] if any additional questions.
[2021-10-08 13:09] VITALS: BP 160/78; PULSE 64; RESP 18; TEMP 36.7; O2SAT 98; BMI 25.5
--- NOTE | 2021-11-05 15:15 | WPDANESEPPF ---
Anes - Initial Pre Proc Eval Procedure: Operation Date: 11/06/21 07:30 Proposed Procedures p Right Custom Total Knee Arthroplasty - Omar Romero MD Date/Time: 11/05/21 15:15 Surgeon: Omar Romero MD Pre Op Diagnosis: primary OA right knee Patient Data Age: 81 Gender: F Height: 1.65 m Weight: 69.7 kg Last Vital Signs Temp 36.7 C 10/08/21 13:09 Pulse 64 10/08/21 13:09 Resp 18 10/08/21 13:09 BP 160/78 H 10/08/21 13:09 Pulse Ox 98 10/08/21 13:09 Allergies Allergy/AdvReac Type Severity Reaction Status Date / Time levofloxacin AdvReac Diarrhea Verified 11/06/21 06:26 Home Medications Medication Instructions Recorded Confirmed Type multivitamin 1 tablet PO DAILY 04/03/20 10/08/21 History ascorbic acid (vitamin C) [Vitamin 500 mg PO QAM 07/19/20 11/06/21 History C] cholecalciferol (vitamin D3) 50 mcg PO QAM 07/19/20 11/06/21 History [Vitamin D3] hydrocodone-acetaminophen 1 tablet PO Q6-8H PRN 07/19/20 11/06/21 History loperamide [Imodium A-D] 8 mg PO BID 07/19/20 11/06/21 History potassium chloride 10 meq PO QAM 07/19/20 10/08/21 History quinapril-hydrochlorothiazide 1 tablet PO QACLUNCH 07/19/20 10/08/21 History gabapentin 300 mg capsule 900 mg PO HS cap 08/09/20 11/06/21 History aspirin 81 mg PO QAM 04/25/21 11/06/21 History cinnamon bark [Cinnamon] 500 mg PO QAM 04/25/21 11/06/21 History vitamin E mixed 400 unit PO QAM 04/25/21 10/08/21 History acidophilus-pectin, citrus 1 cap PO DAILY 10/08/21 11/06/21 History Patient hx anesthesia problems: none Family hx anesthesia problems: none Results Review: All pre-operative results and documents have been reviewed as part of the pre-operative evaluation. [facility] Past Medical History Medical History Breast cancer Colon cancer Discitis (~2020) History of kidney cancer History of non-Hodgkin's lymphoma History of skin cancer History of treatment for malignancy History of vaginal delivery x 4 HTN (hypertension), benign Primary osteoarthritis of right knee Surgical History Surgical History History of bladder surgery History of meniscectomy of right knee (~02/02/14) Arthroscopic Partial Medial & Lateral History of nephrectomy History of total left hip arthroplasty (~09/12/04) History of total right hip arthroplasty (~03/12/06) Status post reverse arthroplasty of shoulder 05/08/[address] romero, Rt Shoulder Family History Family History Sibling Patient's brother is Sibling Acute myocardial infarction Social History Social History Social History: The patient lives with her . He is the durable power internal wholesaler for healthcare. The patient is stating that she would like to be a DNR. The patient has 4 children. 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 Smoking status: Never smoker Second hand tobacco smoke exposure: No Additional smoking assessment comments: PT DENIES ALL FORMS OF TOBACCO USE Alcohol intake: never Substance use: never Substance use type: does not use Living arrangements: with family Additional living arrangements comments: HUSB Gender identity (if verbalized by the patient): Female Spiritual care concerns: No Anes - Eval Final PreProcedure Day of Procedure 11/05/21 15:15 Patient weight: normal Heart: regular rate and rhythm Lungs: clear to auscultation and normal air movement Airway: Mallampati scale class II Neurological: alert and oriented Last oral intake: >/= 8 hours ASA classification: III Emergent: no Anesthetic plan: proceed Anesthesia type and monitoring: general LMA Results Review: All pre-operative results and documents have been reviewed as part of the pre-operative evaluation. Informed Con
--- NOTE | 2021-11-05 15:17 | WPDANESPNB ---
Anes - Peripheral Nerve Block Date/Time: 11/05/21 15:17 I have discussed with the patient/family/POA the placement of a peripheral nerve block for post-operative pain management, including associated risks, benefits, complications, and side effects. Alternative methods of post-operative analgesia were detailed. Questions were solicited and answers provided to the satisfaction of the patient/family/POA. Time-Out: A pre-procedural Time-Out was completed immediately before starting the procedure and confirmed: Patient Identification, Site, Procedure, Patient Position and the Availability of Requisite Equipment. Clinical Indications: Acute post-operative pain management requested by the operative surgeon. Nerve Block Insertion Note Anes-nerve block: adductor canal right Patient position: supine Skin prep: chlorhexidine Needle: 22 gauge, stimulating, insulated echogenic needle. Needle length: 80 mm Technique: ultrasound Technique comment: in plane Injectate: bupivacaine 0.5% with epi 5 mcg/ml (30cc) Observations: tolerated well Complications: none Procedure start time:: 725 Procedure end time:: 730
[2021-11-06] VITALS (9 sets, daily range): BP systolic 112–146; BP diastolic 51–70; PULSE 54–66; RESP 12–18; TEMP 36.1–36.7; O2SAT 93–100; BMI 25.3
--- NOTE | ~2021-11-06 | XR_ITS ---
EXAMINATION: XR knee RT 2V DATE: 11/06/2021 10:26 INDICATION: Total right knee arthroplasty. Postop. TECHNIQUE: 2 views of right knee were obtained. COMPARISON: Right knee radiographs 08/01/2021 FINDINGS: There is a total right knee arthroplasty with patellar resurfacing in near-anatomic alignme nt. No fracture. There is gas in the knee joint and soft tissues, consistent with recent surgery. IMPRESSION: 1. Total right knee arthroplasty in near-anatomic alignment. Reviewed, dictated and finalized at location A. LINE SERVICE ATTENDANT
--- NOTE | 2021-11-06 06:55 | SUR.PREOP ---
0630; PT STATES SHE TOOK HER NORCO TODAY AT 0500, PO TYLENOL HELD
[2021-11-06] MEDS: LACTATED RINGERS 1,000 ML 30 ML IV CONT ×2 (07:00→10:13)
[2021-11-06] MEDS: TRANEXAMIC ACID 1,000MG/ISO100 1,000 MG/100 ML BAG 200 MG IVPB (07:08)
--- NOTE | 2021-11-06 07:14 | SUR.PREOP ---
DR SHEIKH NOTIFIED OF HELD TYLENOL DUE TO PT TAKING NORCO TODAY
--- NOTE | 2021-11-06 07:17 | WPDHPUPDATE1 ---
History and Physical Update Update Date/Time: 11/06/21 07:17 History and Physical has been reviewed, including an updated exam of the patient. There are NO changes in the patient's condition. Risks, benefits, and alternatives have been discussed and questions answered. Patient agrees to proceed with procedure.
[2021-11-06] MEDS: ceFAZolin 2 GM/D5W 50 ML 2 GM/50 ML BAG IVPB ×2 (07:37→15:01)
[2021-11-06] MEDS: GENTAMICIN BONE CEMENT REFOBACIN 1 EACH TOPICAL (08:12)
--- NOTE | 2021-11-06 10:19 | W.PM.PROC2 ---
Procedure Note - Detailed Date of Procedure 11/06/21 Pre-op Diagnosis primary OA right knee Post-op Diagnosis same Procedure Performed Total knee arthroplasty, right. Surgeon Omar Romero MD Payroll Coordinator Jumana Soto PA-C Anesthesia general and regional (Subsartorial block.) Findings Valgus deformity. Dysplasia with hypoplastic lateral femoral condyle. Conformis custom implant with excellent fit and balancing without releases. Description of Procedure Physician certified pharmacist assistant, Jumana Soto PA-C, required for surgery; including patient positioning, draping, tissue retraction, maintaining instrument position, cement removal, wound closure, and dressing placement. Preoperative antibiotics were given. The limb was prepped and draped in the usual sterile fashion with a well-padded tourniquet high on the thigh. The limb was exsanguinated and the tourniquet inflated to 300 mmHg. A longitudinal incision was created just medial to the patella. A trivector approach to the knee was performed. Arthrotomy was taken down through the joint capsule. No significant releases were initially taken. The femur was exposed and the F1 jig was applied. The coring tool was used to remove the cartilage for the F2 jig to sit flush with the bone. The jig was pinned and the distal cut carefully taken. Caliper measurements confirmed appropriate bony resections according to the preoperative templated plan. The F4 cutting jig for the femur was applied, at the standard rotation. The AP and anterior chamfer cuts were taken. The F5 jig was applied and the posterior chamfer cuts were taken. The tibia was prepared using the T1 jig, after removing cartilage for the jig contact points. Proper alignment was checked with the alignment alpa. The tibia was cut using the T1u guide. Gap balancing was performed. Gap measurements were taken and the knee was trialed. Excellent alignment and soft tissue balancing was confirmed. The posterior cruciate ligament was recessed along the proximal tibia. The patella was cut for resurfacing. Three lug holes were drilled. Meniscal remnants were removed. The trial components were assembled. Excellent range of motion and proper soft tissue balancing were confirmed throughout the full range of motion. Patellar tracking was excellent. The knee was copiously irrigated periodically throughout the procedure. The real implants were cemented into position. Excess cement was carefully removed. The wound was closed in layers with interrupted #1 Vicryl suture, 2-0 strata fix suture, 0 strata fix suture, 2-0 strata fix suture. Steri-Strips placed on the skin with the knee flexed. Sterile bulky dressing applied. The patient was brought to the recovery room in stable condition. There were no complications. Implants Conformis Custom total knee arthroplasty. Cemented. Cruciate retaining. 8C insert. 32 mm round patella. Estimated Blood Loss 100 Drains No Pathology none sent Complications No immediate complications Condition stable Disposition PACU
--- NOTE | 2021-11-06 12:15 | ADMGEN ---
This patient, Karen Trammell, was admitted to [facility]. Patient/family oriented to hospital policies and general routines including ID bracelet, bed and alarms, visiting hours, pain management, procedures, bathroom and other care routines, personal items, smoking policy, room service/diet, and visiting hours. Information on how to activate the Rapid Response Team has been discussed. Patient/Family are encouraged to report perceived risks to care and to ask questions if they do not understand what they are told or what they should do.
--- NOTE | 2021-11-06 12:36 | SUR.PHASEI ---
at 1120 ji mckeon brought Neosporin for pt to put under her eyes for the irritation from tape during interop
[2021-11-06] MEDS: oxyCODONE HCL (*CRX) 5 MG TAB IR PO (12:41)
[2021-11-06] MEDS: lisinopriL 10 MG TABLET PO (14:15)
[2021-11-06] MEDS: hydroCHLOROthiazide 12.5 MG CAPSULE PO (14:15)
--- NOTE | 2021-11-06 15:59 | PM.DS ---
DS: Admitting Diagnosis Discharge Date 11/06/21 Admitting Diagnosis OA knee Right DS: Discharge Diagnosis Discharge Diagnosis (1) Status post total right knee replacement: Code(s): Z96.651 - Presence of right artificial knee joint Status: Acute Assessment and Plan: Postop day 0: Left total knee arthroplasty. Patient tolerated procedure well. No complications. Pain manageable with pain medication. No numbness or tingling. She is doing very well and would like to be discharged same day. This is reasonable. We had a lengthy discussion regarding postoperative wound care, limitations, expectations, and exercises. Patient shows good understanding. She has had initial physical therapy and is tolerating it well. DVT prophylaxis: 81 mg baby aspirin b.i.d. for 14 days. Pain medication: Percocet. Meloxicam Prednisone 5mg daily for 3 weeks. Patient has followup appointment with Dr. Romero in 3 weeks. DS: Summary Hospital Course Reason for hospitalization: Total knee arthroplasty Hospital Course: Patient tolerated procedure well. Has had initial PT/OT. No complications. Pain well managed. Status at Discharge Functional status at discharge: uses cane/walker Overall status at discharge: patient is progressing back to baseline Time Spent with Patient Time attestation: Total time spent providing and/or coordinating discharge services: Exam Narrative: Normal weight female. Resting comfortably in chair. No acute distress. A&O x3. Wearing compression socks bilaterally. Dressing intact with no drainage. Moderate swelling. No ecchymosis. No erythema. No hematoma. Good early range of motion. Calf nontender. Neurologic status intact. No varicosities. Distal pulses palpable. DS: Data Data Completed and Pending Labs on day of discharge: Labs from last 24 hours 11/06/21 07:11 Blood Type A Positive Antibody Screen Negative Discharge Plan Discharge Patient Disposition: Home, Self-Care Discharge Instructions: See green instruction sheet Added Prednisone 5mg due to outpatient surgery. Will help with pain. Remove eulalio wrap and apply compression sock on right leg tomorrow morning. Stand Alone Forms: General Discharge Information, General Discharge Instructions Follow-up/Referrals: Jumana Soto PA [Physician Summer Camp Counselor] - Discharge Medications: New aspirin 81 mg tablet,delayed release (DR/EC) 81 mg PO BID 14 Days Qty: 28 RF: 0 prednisone 5 mg tablet 5 mg PO DAILY 21 Days Qty: 21 RF: 0 meloxicam 15 mg tablet 15 mg PO DAILY Qty: 30 RF: 0 oxycodone-acetaminophen 5-325 mg tablet 1 - 2 tablet PO Q4-6H MDD 6 PRN (Reason: pain) Qty: 30 RF: 0 Continued multivitamin [Daily Multi-Vitamin] Tablet 1 tablet PO DAILY RF: 0 cinnamon bark [Cinnamon] 500 mg Capsule 500 mg PO QAM RF: 0 vitamin E mixed 400 unit Capsule 400 unit PO QAM RF: 0 aspirin 81 mg Tablet,Delayed Release (Dr/Ec) 81 mg PO QAM RF: 0 Hold Instructions: Resume on 05/22/21. Take one pill twice a day for two weeks and then go back to normal once a day after. loperamide [Imodium A-D] 2 mg Capsule 8 mg PO BID RF: 0 hydrocodone-acetaminophen 5-325 mg tablet 1 tablet PO Q6-8H PRN (Reason: Pain) RF: 0 quinapril-hydrochlorothiazide 10-12.5 mg tablet 1 tablet PO QACLUNCH RF: 0 potassium chloride 10 mEq Tablet Extended Release 10 meq PO QAM RF: 0 ascorbic acid (vitamin C) [Vitamin C] 500 mg Tablet 500 mg PO QAM RF: 0 cholecalciferol (vitamin D3) [Vitamin D3] 50 mcg (2,000 unit) Capsule 50 mcg PO QAM RF: 0 gabapentin 300 mg capsule 900 mg PO HS RF: 0 acidophilus-pectin, citrus 100 million cell-10 mg Capsule 1 cap PO DAILY RF: 0
== END 2021-11-06 16:20 | disposition home or self-care (01) ==
LOC: ANHSURGERY 10:20 → ANHSUROVER 11:48
PROVIDERS: PCP Internal Medicine; Visit Provider Orthopaedic Surgery
PROC: (CPT 27447; principal; 2021-11-06 07:30)
DX: M17.11 Unilateral primary osteoarthritis, right knee (principal); G89.18 Other acute postprocedural pain; I10 Essential (primary) hypertension; Z85.72 Personal history of non-Hodgkin lymphomas; Z90.5 Acquired absence of kidney; Z79.82 Long term (current) use of aspirin
CPT/HCPCS: 27447; 64447; 36415; 73560; 80048; 80307; 82040; 83036; 85025; 86850; 86900; 86901; 87081; 97110; 97161; 97165; A9270; C1713; C1776; C9803; J0131; J0171; J0690; J1100; J1885; J2270; J2405; J2704; J2795; J3010; J7120; U0003; U0005

== ENCOUNTER 2022-01-17 09:46 | Outpatient (CLI) | payer MEDICARE, SELFPAY ==
--- NOTE | ~2022-01-17 | US_ITS ---
EXAMINATION: US venous doppler [facility] EXAM DATE: 01/17/2022 10:29 INDICATION: M79.89 - Other specified soft tissue disorders. TECHNIQUE: Multiple grayscale, color flow and Doppler images of the left lower extremity deep venous system were obtained and reviewed. There is no prior study for comparison. FINDINGS: The left common femoral, femoral and profunda veins demonstrate normal color flow, respirat ory variation, augmentation and compressibility. Compressibility, color flow confirmed within the le ft popliteal, posterior tibial, peroneal, and greater saphenous veins. Left calf popliteal fossa pro ximal area of concern demonstrates a vascular heterogeneous hypoechoic region, could be a Cole's cys t or intramuscular hematoma IMPRESSION: 1. No left lower extremity deep venous thrombosis. 2. Focal hypoechoic popliteal fossa avascular region, probably Cole's cyst or less likely muscular hematoma. Reviewed, dictated and finalized at location B. EFFICIENT AUTOMOBILE DESIGNER
== END 2022-01-17 09:47 | disposition home or self-care (01) ==
PROVIDERS: PCP Internal Medicine; Visit Provider Obstetrics & Gynecology
DX: M79.89 Other specified soft tissue disorders (principal)
CPT/HCPCS: 93971

== ENCOUNTER 2022-02-18 09:42 | Outpatient (CLI) | payer MEDICARE, SELFPAY ==
[2022-02-18 10:26] LABS: Albumin Level 3.9 g/dL (3.5-5.1); Anion Gap 7 mmol/L (8-16); Blood Urea Nitrogen 22 mg/dL (7-17); Calcium 8.9 mg/dL (8.4-10.2); Carbon Dioxide 25 mmol/L (22-30); Chloride 107 mmol/L (98-107); Estimated Glomerular Filt Rate 43; Glucose 87 mg/dL (65-110); Phosphorus 3.8 mg/dL (2.5-4.5); Potassium 3.6 mmol/L (3.4-5.0); Sodium 139 mmol/L (137-145)
[2022-02-18 10:38] LABS: Parathyroid Intact 103.2 pg/mL (7.5-53.5)
[2022-02-18 11:19] LABS: Vitamin D 25 Hydroxy 38.4 ng/mL
[2022-02-18 14:52] LABS: Creatinine Urine 33.4 mg/dL; Total Protein Urine Random 18 mg/dL; Ur Ttl Prot Creatinine Ratio 0.54 mg/mg (0-0.20)
== END 2022-02-18 09:43 | disposition home or self-care (01) ==
PROVIDERS: PCP Internal Medicine; Visit Provider Internal Medicine Nephrology
DX: I12.9 Hypertensive chronic kidney disease with stage 1 through stage 4 chronic kidney disease, or unspecified chronic kidney disease (principal); N18.32 Chronic kidney disease, stage 3b; E55.9 Vitamin D deficiency, unspecified
CPT/HCPCS: 36415; 80069; 82306; 82570; 83970; 84156

== ENCOUNTER 2022-04-26 11:02 | Outpatient (CLI) | payer MEDICARE, SELFPAY ==
--- NOTE | ~2022-04-26 | CT_ITS ---
EXAMINATION: CT LE LT wo con DATE: 04/26/2022 12:02 INDICATION: Left knee osteoarthritis. TECHNIQUE: Computed tomography (CT) of the left lower limb was performed without intravenous contrast . Automated exposure control and iterative reconstruction technique were employed. The dose-length pr oduct was 1759.84 mGy-cm. COMPARISON: Knee radiographs 04/17/2022 FINDINGS: There is a total left hip arthroplasty in near-anatomic alignment. No periprosthetic lucenc y to suggest loosening or infection. No fracture. Left knee demonstrates moderate tricompartmental os teoarthritis. There is a small knee joint effusion. There is a large Cole's cyst. There is polyartic ular osteoarthritis in left midfoot. There is mild Achilles tendinopathy. Varicose veins are noted. IMPRESSION: 1. Moderate left knee osteoarthritis. 2. Small left knee joint effusion. 3. Large Cole's cyst. 4. Total left hip arthroplasty in near-anatomic alignment. Reviewed, dictated and finalized at location A.
[2022-04-26 12:25] LABS: Hematocrit 34.2 % (37.0-47.0); Hemoglobin 10.3 g/dL (12.0-15.0)
[2022-04-26 12:39] LABS: Albumin Level 4.1 g/dL (3.5-5.1); Estimated Glomerular Filt Rate 39; Glucose 86 mg/dL (65-110)
== END 2022-04-26 11:03 | disposition home or self-care (01) ==
PROVIDERS: PCP Internal Medicine; Visit Provider Orthopaedic Surgery
DX: M17.12 Unilateral primary osteoarthritis, left knee (principal); Z01.818 Encounter for other preprocedural examination; M25.462 Effusion, left knee; M71.21 Synovial cyst of popliteal space [Baker], right knee
CPT/HCPCS: 36415; 73700; 82040; 82565; 82947; 85014; 85018

== ENCOUNTER 2022-06-27 11:45 | Outpatient (CLI) | payer MEDICARE, SELFPAY ==
[2022-06-27 13:11] LABS: Basophils Percent Auto 0.8 % (0.2-1.2); Eosinophils Absolute Auto 0.1 K/mm3 (0-0.3); Eosinophils Percent Auto 1.7 % (0-4.4); Hematocrit 38.5 % (37.0-47.0); Hemoglobin 12.2 g/dL (12.0-15.0); Immature Granulocyte Absolute 0.01 K/mm3 (0.00-0.031); Immature Granulocyte Percent A 0.2 % (0-0.5); Lymphocytes Absolute Auto 1.78 K/mm3 (0.9-3.2); Mean Corpuscular HGB Conc 31.7 g/dl (32-36); Mean Corpuscular Hemoglobin 30.2 pg (26-34); Mean Corpuscular Volume 95.3 fl (80-100); Mean Platelet Volume 9.5 fl (7.4-10.4); Monocytes Absolute Auto 0.4 K/mm3 (0.1-0.6); Monocytes Percent Auto 7.8 % (2.6-8.5); Neutrophils Absolute Auto 2.9 K/mm3 (1.3-6.7); Neutrophils Percent Auto 55.5 % (45.5-73.1); Platelet Count Result 217 k/mm3 (150-375); Red Blood Count 4.04 M/mm3 (4.2-5.4); Red Cell Distribution Width 13.7 % (11.5-14.5); White Blood Count 5.2 K/mm3 (4.5-10.0)
[2022-06-27 13:19] LABS: Albumin Level 4.6 g/dL (3.5-5.1)
[2022-06-27 13:23] LABS: Anion Gap 11 mmol/L (8-16); Blood Urea Nitrogen 26 mg/dL (7-17); Calcium 9.3 mg/dL (8.4-10.2); Carbon Dioxide 24 mmol/L (22-30); Chloride 106 mmol/L (98-107); Estimated Glomerular Filt Rate 39; Glucose 88 mg/dL (65-110); Potassium 3.6 mmol/L (3.4-5.0); Sodium 141 mmol/L (137-145)
[2022-06-27 13:42] LABS: Urine Cotinine NEGATIVE
[2022-06-27 13:47] LABS: Hemoglobin A1C 5.1 % (<5.7)
== END 2022-06-27 11:46 | disposition home or self-care (01) ==
PROVIDERS: Anesthesiology; PCP Internal Medicine; Visit Provider Orthopaedic Surgery
DX: M17.12 Unilateral primary osteoarthritis, left knee (principal); Z79.899 Other long term (current) drug therapy; Z01.818 Encounter for other preprocedural examination
CPT/HCPCS: 80048; 80307; 82040; 83036; 85025; 87081

== ENCOUNTER → 2022-07-05 14:37 | Outpatient (CLI) | payer MEDICARE, SELFPAY ==
--- NOTE | ~2022-07-05 | MM_ITS ---
EXAMINATION: MM screening rafita BI w pedro luis HISTORY: Screening mammogram TECHNIQUE: Craniocaudal and mediolateral oblique 3-D tomosynthesis images were obtained and synthetic 2-D images were generated. Rotated lateral craniocaudal view of left breast CAD analysis was submitt ed and interpreted. COMPARISON: 04/30/2021 bilateral screening mammogram 02/03/2020 right diagnostic mammogram and limited right breast ultrasound 01/20/2020 bilateral screening mammogram BREAST PARENCHYMAL COMPOSITION: There are scattered areas of fibroglandular density. FINDINGS: Surgical clips are again noted in the posterior upper central/medial right breast and poste rior upper outer left breast. There is no evidence of suspicious mass, calcification, or architectura l distortion to suggest malignancy in either breast. There has been no suspicious interval change. IMPRESSION: 1. No mammographic evidence of malignancy. 2. Recommend routine screening mammography in one year. BI-RADS Category 2: Benign finding(s). Reviewed, dictated and finalized at location A.
== END ==
PROVIDERS: PCP Internal Medicine Medical Oncology; Visit Provider Obstetrics & Gynecology
DX: Z12.31 Encounter for screening mammogram for malignant neoplasm of breast (principal)
CPT/HCPCS: 77063; 77067

== ENCOUNTER → 2022-07-05 14:46 | Outpatient (CLI) | payer MEDICARE, SELFPAY ==
--- NOTE | ~2022-07-05 | DEXA_ITS ---
Bone Density Report Name: JHONNY YEE Age: 81 Sex: Female Ethnicity: White Date of : 1940 Indication: postmenopausal; screening for osteoporosis; height loss; Referring Provider: BRENT, MYLA Murillo Study: Bone densitometry was performed. Exam Date: July 05, 2022 Accession number: [id number] Bone Density: Region BMD T-score Z-score Classification AP Spine (L1, L2, L3) 1.060 0.4 3.1 Normal World Health Organization criteria for BMD impression classify patients as: Normal (T-score at or above -1.0), Osteopenia (T-score between -1.0 and -2.5), or Osteoporosis (T-score at or below -2.5). Previous Exams: Region Exam Age BMD T-score BMD Change BMD Change Date g/cm2 vs Baseline vs Previous AP Spine(L1, L2, L3) 07/05/2022 81 1.060 0.4 0.096* 0.096* 05/06/2008 67 0.965 -0.5 *Denotes significance at 95% confidence level, LSC for AP Spine = 0.022 g/cm2 Clinical Information Provided by Patient: Has used the following medications: Vitamin D, Calcium, MTV Patient maximum height was 70.0 Menopause Age: 48 Drinks caffeinated beverages Onset of menses at age 13 Number of children 4 Impression: The patient has normal bone mass. No significant bone loss was observed. Discussion: LOW RISK OF FRACTURE; BONE DENSITY IS WELL ABOVE THE MINIMUM DESIRABLE LEVEL AND ABOVE AVERAGE FOR AGE AND SEX AT ALL SKELETAL SITES TESTED. This person's bone density is above expected limits for age and sex. This is rarely clinically significant, but should be pursued if there are significant musculoskeletal complaints. The patient should follow a healthful lifestyle (good nutrition with adequate calcium and vitamin D, and appropriate weight-bearing exercise). Follow-Up: Consider repeating this study in 5 years or sooner if there is some new clinical indication. Reported by: IRASEMA on 07/05/2022 4:01:00 PM. Reviewed, dictated and finalized at location Paula MCCORMICK
== END ==
PROVIDERS: PCP Obstetrics & Gynecology; Visit Provider Internal Medicine Medical Oncology
DX: Z78.0 Asymptomatic menopausal state (principal)
CPT/HCPCS: 77080

== ENCOUNTER 2022-07-16 01:01 | Day surgery (SDC) | payer MEDICARE, SELFPAY ==
--- NOTE | 2022-06-27 11:51 | PC.NURSE ---
PRE-OP INSTRUCTIONS, PLEASE READ CAREFULLY Report to the Outpatient Waiting Room, entrance under the green pavilion located off [facility], at time _0600_ on date _07/16/22_. OR Time: _0730_. - You and your visitor will be asked a series of questions to screen for COVID 19 for your protection. - A mask is required within the hospital. -Only one visitor is allowed at this time. - The patient visitor is requested to leave or wait in car when not with patient. - PACK A SMALL OVERNIGHT BAG AND LEAVE IN THE CAR ALONG WITH YOUR WALKER. VISITING HOURS 10AM-8PM, PARK IN FRONT PARKING LOT ADN USE MAIN HOSPITAL ENTRANCE Patients may have clear liquids (water, carbonated beverages, clear teas, apple juice) until 3 hours prior to surgery (0430AM) with a maximum of 20 ounces. - No food from midnight until time of surgery Take the following medications with a SIP of water the morning of surgery: _PAIN PILL IF NEEDED_ Medications to discontinue per DR. SHEIKH - _ ASPIRIN - 7 DAYS PRIOR TO SURGERY, Date to take last dose _07/08/22_ Medications to discontinue per ANESTHESIA - _ALL VITAMINS AND SUPPLEMENTS 3 DAYS PRIOR TO SURGERY, Date to take last dose 07/12/22_ Please no make-up, nail slovenian, hairspray, perfume, deodorant, or body powder the day of surgery. No jewelry (including any body piercings) or valuables the day of surgery, leave them at home. Please take a shower or bath the night before, or the morning of, surgery with an antibacterial soap. Wear comfortable, loose fitting clothing. - Jewelry must be removed prior to entering the operating room. Rings and piercings that are not removed may be cut off. - The hospital will not accept responsibility for valuables. - Please leave all valuables, including medications, at home the day of surgery. If you are going home after surgery, a licensed p d driver must drive you home. - NO public transportation without another adult. - We recommend that an adult stay with you for 24 hours following discharge. - We also recommend that you do not drive, make important decision, drink alcoholic beverages, or take any drugs that were not prescribed by your health care provider for at least 24 hours after your discharge time. Follow any additional instructions given to you from your surgeon. If you or anyone in your household have experienced Covid symptoms in the past week, please notify your surgeon or the nurse liaison at the phone number below for possible testing. Instructions given to ___PT and asked if any additional questions and then verbalized understanding. Patient advised to call surgeon office or pre surgery nurse liaison [phone] if any additional questions.
[2022-06-27 12:17] VITALS: BP 168/76; PULSE 68; RESP 18; TEMP 37.1; O2SAT 96; BMI 26.4
--- NOTE | 2022-07-15 13:20 | WPDANESEPPF ---
Anes - Initial Pre Proc Eval Procedure: Operation Date: 07/16/22 07:30 Proposed Procedures p Left Custom Total Knee Arthroplasty - Omar Romero MD Date/Time: 07/15/22 13:20 Surgeon: Omar Romero MD Pre Op Diagnosis: Prim O A Lt Knee Patient Data Age: 81 Gender: F Height: 1.65 m Weight: 72.2 kg Last Vital Signs Temp 37.1 C 06/27/22 12:17 Pulse 68 06/27/22 12:17 Resp 18 06/27/22 12:17 BP 168/76 H 06/27/22 12:17 Pulse Ox 96 06/27/22 12:17 O2 Del Method Room Air 06/27/22 12:17 Allergies Allergy/AdvReac Type Severity Reaction Status Date / Time gluten Allergy Mild Diarrhea & Verified 07/16/22 06:30 STOMACH UPSET levofloxacin AdvReac Diarrhea Verified 07/16/22 06:30 Home Medications Medication Instructions Recorded Confirmed Type multivitamin (Daily Multi-Vitamin 1 tablet PO DAILY 04/03/20 07/16/22 History tablet) ascorbic acid (vitamin C) 500 mg 500 mg PO QAM 07/19/20 07/16/22 History tablet (Vitamin C) cholecalciferol (vitamin D3) 50 50 mcg PO QAM 07/19/20 07/16/22 History mcg (2,000 unit) capsule (Vitamin D3) hydrocodone 5 mg-acetaminophen 325 1 tablet PO Q6-8H PRN Pain 07/19/20 07/16/22 History mg tablet loperamide 2 mg capsule (Imodium 8 mg PO BID 07/19/20 07/16/22 History A-D) quinapril 10 1 tablet PO QACLUNCH 07/19/20 07/16/22 History mg-hydrochlorothiazide 12.5 mg tablet gabapentin 300 mg capsule 900 mg PO HS 08/09/20 07/16/22 History cinnamon bark 500 mg capsule 1,000 mg PO QAM 04/25/21 07/16/22 History (Cinnamon) vitamin E mixed 400 unit capsule 400 unit PO QAM 04/25/21 07/16/22 History Probiotic 1 cap BID 06/27/22 07/16/22 History aspirin 81 mg tablet,delayed 81 mg PO QAM 06/27/22 07/16/22 History release calcium 600 mg capsule 1,200 mg PO QAM 06/27/22 07/16/22 History cranberry extract 200 mg capsule 4,200 mg PO DAILY 06/27/22 07/16/22 History garlic 500 mg capsule 500 mg PO DAILY 06/27/22 07/16/22 History magnesium 200 mg tablet 400 mg PO DAILY 06/27/22 07/16/22 History Patient hx anesthesia problems: none Family hx anesthesia problems: none Results Review: All pre-operative results and documents have been reviewed as part of the pre-operative evaluation. [facility] Past Medical History Medical History Breast cancer Colon cancer Discitis (~2019) History of kidney cancer History of non-Hodgkin's lymphoma History of skin cancer History of treatment for malignancy History of vaginal delivery x 4 HTN (hypertension), benign Primary osteoarthritis of right knee Surgical History Surgical History History of bladder surgery History of meniscectomy of right knee (~02/02/14) Arthroscopic Partial Medial & Lateral History of nephrectomy History of total left hip arthroplasty (~09/12/04) History of total right hip arthroplasty (~03/12/06) History of total right knee replacement (~11/06/21) Conformis S/P shoulder surgery Status post reverse arthroplasty of shoulder 05/08/[address] romero, Rt Shoulder Family History Family History Sibling Patient's brother is Sibling Acute myocardial infarction Social History Social History Social History: The patient lives with her . He is the durable power skin toggler for healthcare. The patient is stating that she would like to be a DNR. The patient has 4 children. 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
[2022-07-16] VITALS (10 sets, daily range): BP systolic 102–173; BP diastolic 50–85; PULSE 55–70; RESP 13–20; TEMP 37.2; O2SAT 94–99
--- NOTE | ~2022-07-16 | XR_ITS ---
EXAMINATION: XR knee LT 2V DATE: 07/16/2022 10:29 INDICATION: Postoperative evaluation following left total knee arthroplasty. TECHNIQUE: Anteroposterior and lateral views of the left knee were obtained. COMPARISON: None. FINDINGS: Left total knee arthroplasty with patellar resurfacing appears well seated and in near anatomic align ment. No fractures identified. Expected postoperative subcutaneous and intra-articular gas. IMPRESSION: 1. Left total knee arthroplasty, negative for postoperative purposes. Reviewed, dictated and finalized at location A.
[2022-07-16] MEDS: ACETAMINOPHEN 500 MG TABLET 1000 MG PO (06:38)
[2022-07-16] MEDS: LACTATED RINGERS 1,000 ML 30 ML IV CONT ×2 (06:48→10:11)
[2022-07-16] MEDS: TRANEXAMIC ACID 1,000MG/ISO100 1,000 MG/100 ML BAG 200 MG IVPB (06:56)
--- NOTE | 2022-07-16 07:28 | WPDHPUPDATE1 ---
History and Physical Update Update Date/Time: 07/16/22 07:28 History and Physical has been reviewed, including an updated exam of the patient. There are NO changes in the patient's condition. Risks, benefits, and alternatives have been discussed and questions answered. Patient agrees to proceed with procedure.
[2022-07-16] MEDS: ceFAZolin 2 GM/D5W 50 ML 2 GM/50 ML BAG IVPB (07:36)
--- NOTE | 2022-07-16 07:37 | WPDANESPNB ---
Anes - Peripheral Nerve Block Date/Time: 07/16/22 07:37 I have discussed with the patient/family/POA the placement of a peripheral nerve block for post-operative pain management, including associated risks, benefits, complications, and side effects. Alternative methods of post-operative analgesia were detailed. Questions were solicited and answers provided to the satisfaction of the patient/family/POA. Time-Out: A pre-procedural Time-Out was completed immediately before starting the procedure and confirmed: Patient Identification, Site, Procedure, Patient Position and the Availability of Requisite Equipment. Clinical Indications: Acute post-operative pain management requested by the operative surgeon. Nerve Block Insertion Note Anes-nerve block: adductor canal left Patient position: supine Skin prep: chlorhexidine Needle: 22 gauge, stimulating, insulated echogenic needle. Needle length: 80 mm Technique: ultrasound Technique comment: in plane Injectate: bupivacaine 0.5% with epi 5 mcg/ml (30cc) Observations: tolerated well Complications: none Procedure start time:: 720 Procedure end time:: 725
[2022-07-16] MEDS: GENTAMICIN BONE CEMENT REFOBACIN 1 EACH TOPICAL (08:55)
--- NOTE | 2022-07-16 12:15 | SUR.PHASEII ---
PT here to work with pt.
--- NOTE | 2022-07-16 13:58 | P.OP_ITS ---
Procedure Note - Detailed Date of Procedure 07/16/22 Pre-op Diagnosis Prim O A Lt Knee Post-op Diagnosis Same Procedure Performed Total knee arthroplasty, left. Surgeon Omar Romero MD Biomedical Field Service Engineer Jumana Soto PA-C Anesthesia General and Regional (Subsartorial block.) Findings Custom TKA. Moderate valgus deformity. Standard bone resections. No significant releases. Good bone quality. Description of Procedure Preoperative antibiotics were given. The limb was prepped and draped in the usual sterile fashion with a well-padded tourniquet high on the thigh. The limb was exsanguinated and the tourniquet inflated to 300 mmHg. A longitudinal incision was created just medial to the patella. A trivector approach to the knee was performed. Arthrotomy was taken down through the joint capsule. No significant releases were taken. The femur was exposed and the F1 jig was applied. The coring tool was used to remove the cartilage for the F2 jig to sit flush with the bone. The jig was pinned and the distal cut carefully taken. Caliper measurements confirmed appropriate bony resections according to the preoperative templated plan. The F4 cutting jig for the femur was applied, at the standard rotation. The AP and anterior chamfer cuts were taken. The F5 jig was applied and the posterior chamfer cuts were taken. The tibia was prepared using the T1 jig, after removing cartilage for the jig contact points. Proper alignment was checked with the alignment alpa. The tibia was cut using the T1u guide. Gap balancing was performed. Gap measurements were taken and the knee was trialed. Excellent alignment and soft tissue balancing was confirmed. The posterior cruciate ligament was recessed along the proximal tibia. The patella was cut for resurfacing. Three lug holes were drilled. Meniscal remnants were removed. The trial components were assembled. Excellent range of motion and proper soft tissue balancing were confirmed throughout the full range of motion. Patellar tracking was excellent. The knee was copiously irrigated periodically throughout the procedure. The real implants were cemented into position. Excess cement was carefully removed. The wound was closed in layers with interrupted #1 Vicryl suture, 2-0 strata fix suture, 0 strata fix suture, 2-0 strata fix suture. Steri-Strips placed on the skin with the knee flexed. Sterile bulky dressing applied. The patient was brought to the recovery room in stable condition. There were no complications. Physician audiology assistant, Jumana Soto PA-C, required for surgery; including patient positioning, draping, tissue retraction, maintaining instrument position, cement removal, wound closure, and dressing placement. Implants Conformis Custom total knee arthroplasty. Cemented. Cruciate retaining. 8A insert. 32 mm round patella. Estimated Blood Loss -100.0 Drains No Complications No immediate complications Condition Stable Disposition PACU [facility] Billing Surgery - Charge Forward: Surgery Billing
== END 2022-07-16 12:10 | disposition home or self-care (01) ==
PROVIDERS: PCP Internal Medicine; Referring Provider Obstetrics & Gynecology; Visit Provider Orthopaedic Surgery
PROC: (CPT 27447; principal; 2022-07-16 07:30)
DX: M17.12 Unilateral primary osteoarthritis, left knee (principal); G89.18 Other acute postprocedural pain; M25.562 Pain in left knee; Z85.3 Personal history of malignant neoplasm of breast; Z85.038 Personal history of other malignant neoplasm of large intestine; Z85.828 Personal history of other malignant neoplasm of skin; Z85.528 Personal history of other malignant neoplasm of kidney; Z85.72 Personal history of non-Hodgkin lymphomas
CPT/HCPCS: 64447; 27447; 36415; 73560; 80048; 80307; 82040; 83036; 85025; 86850; 86900; 86901; 87081; 97110; 97161; A9270; C1713; C1776; J0171; J0690; J1100; J1170; J1885; J2270; J2405; J2704; J2795; J3010; J7120

== ENCOUNTER 2025-06-12 13:59 | Inpatient (IN) | payer MEDICARE, SELFPAY ==
[2025-06-12] VITALS (14 sets, daily range): BP systolic 119–163; BP diastolic 54–85; PULSE 49–65; RESP 14–20; TEMP 36.3–36.9; O2SAT 94–100; BMI 24.3
--- NOTE | ~2025-06-12 | CT_ITS ---
EXAMINATION: CTA chest abdomen pelvis DATE: 06/12/2025 17:20 INDICATION: L CP, SOB, dimer >1; radiates to back . TECHNIQUE: Computed tomography angiography of the chest, abdomen, and pelvis was performed with 100 m L Omnipaque-350 intravenous contrast in the arterial phase. Automated exposure control and iterative reconstruction technique were employed. The dose-length product was 590.17 mGy-cm. COMPARISON: X-ray chest, same date; CT abdomen pelvis 03/16/2018; CT pulmonary April 08, 2007 FINDINGS: CHEST: Thoracic aorta: No dissection. Mild dilation of the descending thoracic aorta to 3.3 cm. Moderate ath erosclerotic calcification. Lung parenchyma and airways: There is moderate motion artifact in the lungs. Subsegmental bilateral d ependent consolidation. Patent airways. Thoracic inlet, axillae and chest wall: 7 mm left thyroid lobe nodule, which requires no additional e valuation. No axillary lymphadenopathy. Mediastinum: Dilated central pulmonary arteries as can be seen with pulmonary hypertension. Although not optimized for pulmonary embolus detection, the pulmonary arteries are well visualized and no embo david is detected. Heart and pericardium: Cardiomegaly. No pericardial effusion. Minimal mitral calcification. Coronary artery calcifications: Mild. Pleura: Small left pleural fluid collection. Thoracic bones: No acute osseous finding in the chest. Exaggerated kyphosis. Multilevel degenerative disc disease. Minimal retrolisthesis at T11-12, presumably secondary to degenerative changes. Mild an terior wedge deformity at T11 and T12, presumably chronic. Partially visualized right shoulder arthro plasty hardware. ABDOMEN/PELVIS: Considerable motion artifact in the abdomen. Liver: Normal. Biliary/Gallbladder: Gallbladder is absent. Moderate intra and extrahepatic bile duct dilation, a chr onic finding. Pancreas: Atrophy. 1.2 cm cyst in the pancreatic body. Spleen: Normal. Adrenals:No mass. Kidneys: Absent right kidney. Scarring and cortical thinning in the left kidney. Mild left hydronephr osis GI tract: Uncomplicated appearing large bowel anastomoses. No small or large bowel dilation. Appendix not confidently visualized. Mesentery/Peritoneum: No ascites, mass, or free air. Retroperitoneum: No mass Atherosclerotic calcifications of intra-abdominal arterial vessels. Pelvis: The pelvis is obscured by metal artifact. 9.1 cm cystic right adnexal mass. Soft Tissues: Small uncomplicated periumbilical fat-containing ventral hernia. Abdominopelvic bones: No acute osseous finding in the abdomen/pelvis. Partially visualized bilateral hip arthroplasties. Grade 1 anterolisthesis at L4-5. Multilevel lumbar degenerative disc disease. IMPRESSION: Mild ascending thoracic aortic ectasia. No dissection. Cardiomegaly. Dependent subsegmental atelectasis/consolidation in the lower lobes. Small left pleural effusion. Examination of the abdomen is limited by motion artifact. 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 1.2 cm pancreatic cyst, slight interval growth since 2018, consider follow-up in one year if the tayla ent is a surgical candidate. Status post right nephrectomy. Cortical atrophy and scarring in the remaining left kidney. Mild left hydronephrosis. The hydronephrosis may be related to adnexal mass that determination is difficult giv en the degree of motion artifact and metal artifact. 9.1 cm cystic right adnexal mass, poorly evaluated due to artifact from hip arthroplasty hardware. Reviewed, dictated and finalized at location K. IMPRESSION: Mild ascending thoracic aortic ectasia. No dissection. Cardiomegaly. Dependent subsegmental atelectasis/consolidation in the lower lobes. Small left pleural effusion. Examination of the abdomen is limited by motion artifact. 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 1.2 cm pancreatic cyst, slight interval growth since 2018, consider follow-up i n one year if the patient is a surgical candidate. Status post right nephrectomy. Cortical atrophy and scarring in the remaining l eft kidney. Mild left hydronephrosis. The hydronephrosis may be related to adne xal mass that determination is difficult given the degree of motion artifact an d metal artifact. 9.1 cm cystic right adnexal mass, poorly evaluated due to artifact from hip art hroplasty hardware.
--- NOTE | ~2025-06-12 | US_ITS ---
EXAMINATION: US venous doppler [facility] DATE: 06/13/2025 19:30 INDICATION: Lower limb pain TECHNIQUE: Grayscale ultrasound images without and with compression and Doppler ultrasound images of the bilateral lower extremity veins were obtained. COMPARISON: None. FINDINGS: Noncompressible deep venous thrombosis which appears occlusive or near occlusive color Doppler at the right posterior tibial and peroneal veins. The visualized portions of right common femoral vein, pro gabriel (deep) femoral vein, femoral vein, popliteal vein, gastrocnemius vein and greater saphenous vei n outflow are patent. The visualized portions of left common femoral vein, profunda femoral vein, femoral vein, popliteal v ein, posterior tibial veins, peroneal veins, gastrocnemius vein and greater saphenous vein outflow ar e patent. IMPRESSION: 1. Giagj-zxk-quke deep venous thrombosis in the right posterior tibial and peroneal veins. Findings w ere discussed with Tanvi Walters, the nurse caring for the patient, at 7:35 PM. 2. No deep venous thrombosis in the left lower limb. Reviewed, dictated and finalized at location A. IMPRESSION: 1. Oqjjo-kqu-slil deep venous thrombosis in the right posterior tibial and davon swapna veins. Findings were discussed with Tanvi Walters, the nurse caring for the patient, at 7:35 PM. 2. No deep venous thrombosis in the left lower limb.
--- NOTE | ~2025-06-12 | XR_ITS ---
EXAMINATION: XR chest 2V Exam Date/Time: 06/12/2025 15:07 CDT HISTORY: dyspnea, CP edema Comparison: 04/29/2018. RESULT: Lines, tubes, and devices: Mediastinal, right breast/axillary, GE junction, and right upper quadrant surgical clips. Uncomplicated appearing right shoulder arthroplasty hardware Lungs and pleura: Hemidiaphragm flattening may be secondary to emphysematous change. Subsegmental ai rspace disease in the left lower lobe. Mild bilateral posterior costophrenic angle blunting. Cardiomediastinal silhouette: Stable. Other: No acute upper abdominal finding. Severe osteopenia. Progressive thoracic kyphosis and multil evel mild loss of vertebral body height in the thoracic spine. IMPRESSION: Subsegmental left basilar atelectasis/consolidation. Small bilateral pleural effusions versus chronic pleural blunting. Progressive multilevel vertebral body compression deformities and thoracic kyphosis since 2018. Reviewed, dictated and finalized at location K. IMPRESSION: Subsegmental left basilar atelectasis/consolidation. Small bilateral pleural ef fusions versus chronic pleural blunting. Progressive multilevel vertebral body compression deformities and thoracic kyph osis since 2018.
--- NOTE | ~2025-06-12 | US_ITS ---
EXAM: PELVIC ULTRASOUND HISTORY: adnexal mass in a postmenopausal patient COMPARISON: Reference is made to a CTA of the chest abdomen and pelvis dated 06/12/2025 which demonstr ated a 9.1 cm cystic right (left) adnexal mass FINDINGS: UTERUS: 8.5 x 2.0 x 4.8 cm. The uterus is anteverted and anteflexed. The endometrial complex measures 2mm. RIGHT OVARY: The right ovary is appropriately atrophic for a patient of this age. No discrete measurements on the submitted images. Dopplerable flow is identified. LEFT OVARY: Small amount of left ovarian tissue is present, insufficient for measurement. Within the left adnexa is a large anechoic avascular focus measuring 9.4 x 9.1 x 6.7 cm consistent wi th the simple cyst seen on recent CT examination. No free fluid is identified within the pelvis. IMPRESSION: Simple cyst within the left adnexa measuring 9.4 cm in greatest dimension for which [employer] follow-up is recommended. Reviewed, dictated and finalized at location A. IMPRESSION: Simple cyst within the left adnexa measuring 9.4 cm in greatest dimension for w [facility] [employer] follow-up is recommended.
--- NOTE | 2025-06-12 14:02 | ECG_ITS ---
Test Date: 2025-06-12 14:05:59 Measurements Intervals [place] Rate: 55 P: 260 VA: 165 QRS: -35 QRSD: 138 T: 71 QT: 429 QTc: 413 Interpretive Statements SINUS BRADYCARDIA WITH SINUS ARRHYTHMIA MARKED LEFT AXIS DEVIATION [QRS AXIS < -30] LEFT VENTRICULAR HYPERTROPHY AND ST-T CHANGE [VOLTAGE CRITERIA PLUS ST/T ABNORMALITY] POSSIBLE SEPTAL MYOCARDIAL INFARCTION , PROBABLY OLD [30 ms Q WAVE IN V1/V2] LATERAL MYOCARDIAL INFARCTION , AGE INDETERMINATE No previous ECG available for comparison Electronically Signed On 06-12-2025 18:06:00 CDT by Tony Hernandez M.D.
--- OUTSIDE RECORDS SUMMARY | 2025-06-12 14:02 | XMS_ITS | Encounter Summary ---
Author Organization [facility] Address [address] [place] [address] [place] [address] Care Team Providers Care Acquisitions Librarian Name Role Phone Ambrocio Nascimento MD Primary Care Provider [phone] Encounter Details Date Type Department Care Team (Late st Contact Info) Description 03/22/2020 Lab Requisition [facility] DermPath Lab [address] [place] [id number] [place] [address] Social History Tobacco Use Types Packs/Day Years Used Date Smoking Tobacco: Never Assessed Comments Unknown Sex and Gender Information Value Date Recorded Sex Assigned at Not on file Legal Sex Female 4:44 AM 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 Gender Identity Not on file Sexual Orientation Not on file documented as of this encounter Plan of Treatment Not on file documented as of this encounter Procedures Procedure Name Priority Date/Time Associated Diagnosis Comments DERMATOPATHOLOGY Routine 03/21/2020 12:0 0 AM CDT documented in this encounter Results * DERMATOPATHOLOGY (03/21/2020 12:00 AM CDT) Case Report Dermatopathology Report Case: [id number] Authorizing Provider: Patrick Carmichael MD Collected: 03/21/2020 12:00 AM Ordering Location: [facility] DermPath Lab Received: 03/22/2020 12:33 PM Pathologist: Shital Grande MD Specimen: Skin, left angle of jaw 0 2:20 PM CDT DERMATOPATHOLOGY LABORATORY Final Diagnosis Specimen A. SKIN, left angle of jaw: EPIDERMOID CYST WITH EVIDENCE OF RUPTURE (L72.0) 0 2:20 PM CDT DERMATOPATHOLOGY LABORATORY at 1420 CDT Clinical History R/O dermatitis, cyst, BCC recurrence. 0 2:20 PM CDT DERMATOPATHOLOGY LABORATORY Gross Description Specimen A: Received is one formalin filled container labeled with the patient's name and designated left angle of jaw. The specimen consists of a punch biopsy measuring [id number], bisected. Jar 0. 0 2:20 PM CDT DERMATOPATHOLOGY LABORATORY Microscopic Description Specimen A. SKIN, left angle of jaw: Within the dermis, there is a space lined by epithelium that resembles normal epidermis and the infundibular portion of the hair follicle. Surrounding this is an infiltrate with neutrophils, histiocytes, and multinucleated giant cells. 0 2:20 PM CDT DERMATOPATHOLOGY LABORATORY Disclaimer An external and internal positive and negative controls are appropriate for the histochemical, immunohistochemical and immunofluorescence stain(s) in this case (if any), except where stated explicitly. The performance characteristics of the stain(s) cited in this report were developed and its performance characteristic determined by the Dermatopathology Laboratory at [facility], directed by Dr. Bhavna Grande. These tests need not be, and therefore are not, approved by the [place] Food and Drug Administration. The tests are used for clinical purposes. Billing Codes Specimen Charges Stain Charges 71163 1 0 2:20 PM CDT DERMATOPATHOLOGY LABORATORY Embedded Images 0 2:20 PM CDT DERMATOPATHOLOGY LABORATORY Pathology/Cytolog y TISSUE SPECIMEN FROM SKIN / Unknown 03/21/2020 03/22/2020 12:33 PM CDT us Patrick Carmichael MD LAB - PATHOLOGY/CYTOLOGY ORD ERABLES Final Result DERMATOPATHOLOGY LABORATORY [facility] - Department of Dermatology [address] [place] [address], 5th [place] [address], [facility] [phone] documented in this encounter Visit Diagnoses Not on filedocumented in this encounter Care Teams Acquisitions Librarian Relationship Specialty Start Date End Date Ambrocio Nascimento MD PCP - General 03/30/18 documented as of this encounter
--- OUTSIDE RECORDS SUMMARY | 2025-06-12 14:02 | XMS_ITS | Encounter Summary ---
Author Organization [facility] Address [address] [place] [address] [place] [address] Care Team Providers Care Director Sales Training Name Role Phone Ambrocio Nascimento MD Primary Care Provider [phone] Encounter Details Date Type Department Care Team (Late st Contact Info) Description 09/20/2021 Lab Requisition [facility] DermPath Lab [address] [facility] [place] [id number] [place] [address] Social History Tobacco Use Types Packs/Day Years Used Date Smoking Tobacco: Never Assessed Comments Unknown Sex and Gender Information Value Date Recorded Sex Assigned at Not on file Legal Sex Female 4:44 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 Gender Identity Not on file Sexual Orientation Not on file documented as of this encounter Plan of Treatment Not on file documented as of this encounter Procedures Procedure Name Priority Date/Time Associated Diagnosis Comments DERMATOPATHOLOGY Routine 09/19/2021 12:0 0 AM CDT documented in this encounter Results * DERMATOPATHOLOGY (09/19/2021 12:00 AM CDT) Case Report Dermatopathology Report Case: [id number] Authorizing Provider: Patrick Carmichael MD Collected: 09/19/2021 12:00 AM Ordering Location: [facility] DermPath Lab Received: 09/20/2021 01:01 PM Pathologist: Shital Grande MD Specimen: Skin, medial lateral clavicle 1:21 PM [facility] DERMATOPATHOLOGY LABORATORY Final Diagnosis Specimen A. SKIN, medial lateral clavicle: SOLAR ELASTOSIS AND VASCULAR ECTASIA (L57.8) (see microscopic description) 1:21 PM [facility] DERMATOPATHOLOGY LABORATORY at [address] [facility] Clinical History R/O BCC, SCC, ISK, wound. 1:21 PM [facility] DERMATOPATHOLOGY LABORATORY Gross Description Specimen A: Received is one formalin filled container labeled with the patient's name and designated medial lateral clavicle. The specimen consists of a shave biopsy measuring [id number]. Jar 0. 1:21 PM [facility] DERMATOPATHOLOGY LABORATORY Microscopic Description Specimen A. SKIN, medial lateral clavicle: Sections show non-specific changes, including solar elastosis and vascular ectasia. There is no evidence of epithelial dysplasia or malignancy in multiple deeper sections examined. 1:21 PM [facility] DERMATOPATHOLOGY LABORATORY Disclaimer An external and internal positive and negative controls are appropriate for the histochemical, immunohistochemical and immunofluorescence stain(s) in this case (if any), except where stated explicitly. The performance characteristics of the stain(s) cited in this report were developed and its performance characteristic determined by the Dermatopathology Laboratory at [facility], directed by Dr. Bhavna Grande. These tests need not be, and therefore are not, approved by the [place] Food and Drug Administration. The tests are used for clinical purposes. Billing Codes Specimen Charges Stain Charges 85051 1 1:21 PM [facility] DERMATOPATHOLOGY LABORATORY Embedded Images 1:21 PM [facility] DERMATOPATHOLOGY LABORATORY Pathology/Cytolog y TISSUE SPECIMEN FROM SKIN / Unknown 09/19/2021 09/20/2021 1:01 PM CDT Patrick Carmichael MD LAB - PATHOLOGY/CYTOLOGY ORD ERABLES Final Result DERMATOPATHOLOGY LABORATORY [facility] - Department of Dermatology [address], [address] [phone] documented in this encounter Visit Diagnoses Not on filedocumented in this encounter Care Teams Director Sales Training Relationship Specialty Start Date End Date Ambrocio Nascimento MD PCP - General 03/30/18 documented as of this encounter
--- OUTSIDE RECORDS SUMMARY | 2025-06-12 14:02 | XMS_ITS | Clinical Summary ---
Author Organization [facility] Address [address] [facility] [place] [address] Care Team Providers Care Pig Machine Operator Name Role Phone Ambrocio Nascimento MD Primary Care Provider [phone] Source Comments [facility],non-owned Affiliates and Associated Physician Practices is amultiple site organization consisting of ambulatory clinics and hospital sitesin [place], [place], [place] and [place]. This disclosure is being madepursuant to the Care Everywhere program and may not contain all information available regarding this patient. 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 Gender Identity Not on file Sexual Orientation Not on file Plan of Treatment Health Maintenance Due Date Last Done Comments BONE DENSITY TESTING 1940 DTAP/TDAP/TD VACCINES (1 - Tdap) 1959 PNEUMOCOCCAL VACCINE 50+ (1 of 1 - PCV) 1990 ZOSTER VACCINE (1 of 2) 1990 Respiratory Syncytial Virus (RSV) Vaccine Pt: or over 60 yrs (1 - 1-dose 75+ series) 2015 COVID-19 VACCINE ( - 2023-2 5 season) 2024 DEPRESSION SCREENING 11/17/2024 MEDICARE AWV CALENDAR YEAR 2024 INFLUENZA VACCINE (#1) 2025 HEPATITIS B VACCINE Aged Out No longe r eligible based on patient's age to complete this topic HIB VACCINE Aged Out No longer eligi ble based on patient's age to complete this topic HPV VACCINE Aged Out No longer eligi ble based on patient's age to complete this topic MENINGOCOCCAL (Group B) VACC INE SHARED DECISION-MAKING Aged Out No longer eligibl e based on patient's age to complete this topic MENINGOCOCCAL GROUPS A/C/Y/W VACCINE Aged Out No longer eligible b ased on patient's age to complete this topic Insurance [facility] AETNA MEDICARE ADV Care Teams Pig Machine Operator Relationship Specialty Start Date End Date Ambrocio Nascimento MD PCP - General 03/30/18
--- OUTSIDE RECORDS SUMMARY | 2025-06-12 14:02 | XMS_ITS | Encounter Summary ---
Author Organization [facility] Address [address] [place] [address] [place] [address] Care Team Providers Care Gut Cleaner Name Role Phone Ambrocio Nascimento MD Primary Care Provider [phone] Encounter Details Date Type Department Care Team (Late st Contact Info) Description 01/14/2019 Lab Requisition [facility] DermPath Lab [address] [facility] [place] [phone] Patrick Carmichael MD PROFESSIONAL [place], [place] [id number] Social History Tobacco Use Types Packs/Day Years Used Date Smoking Tobacco: Never Assessed Comments Unknown Sex and Gender Information Value Date Recorded Sex Assigned at Not on file Legal Sex Female 4:44 AM SENIOR ELECTRONICS ENGINEER Gender Identity Not on file Sexual Orientation Not on file documented as of this encounter Plan of Treatment Not on file documented as of this encounter Procedures Procedure Name Priority Date/Time Associated Diagnosis Comments DERMATOPATHOLOGY Routine 01/13/2019 12:0 0 AM SENIOR ELECTRONICS ENGINEER documented in this encounter Results * DERMATOPATHOLOGY (01/13/2019 12:00 AM SENIOR ELECTRONICS ENGINEER) Case Report Dermatopathology Report Case: [id number] Authorizing Provider: Patrick Carmichael MD Collected: 01/13/2019 12:00 AM Pathologist: Linda Ko MD Received: 01/14/2019 01:26 PM Specimens: A) - Skin, below left earlobe B) - Skin, left mid lower cheek 3:28 PM SENIOR ELECTRONICS ENGINEER DERMATOPATHOLOGY LABORATORY Final Diagnosis Specimen A. SKIN, below left earlobe: BASAL CELL CARCINOMA, SUPERFICIAL MULTIFOCAL (C44.219) Specimen B. SKIN, left mid lower cheek: HYPERPLASTIC (HYPERTROPHIC) ACTINIC KERATOSIS (L57.0) (see microscopic description) 3:28 PM [facility] DERMATOPATHOLOGY LABORATORY at 1528 SENIOR ELECTRONICS ENGINEER Clinical History A-B: R/O SCC, Davalos's. 3:28 PM [facility] DERMATOPATHOLOGY LABORATORY Gross Description Specimen A: Received is one formalin filled container labeled with the patient's name and designated below left earlobe. The specimen consists of a shave biopsy measuring [id number]. Jar 0. Specimen B: Received is one formalin filled container labeled with the patient's name and designated left mid lower cheek. The specimen consists of a shave biopsy measuring [id number]. Jar 0. 3:28 PM [facility] DERMATOPATHOLOGY LABORATORY Microscopic Description Specimen A. SKIN, below left earlobe: Attached to the undersurface of the epidermis, there are small aggregates of basaloid cells with a high nuclear to cytoplasmic ratio and peripheral palisading. Specimen B. SKIN, left mid lower cheek: There is hyperkeratosis alternating with parakeratosis. There is epidermal hyperplasia with disorderly maturation of keratinocytes with nuclear pleomorphism confined to the lower half of the epidermis. There is minimal dermis present for evaluation. 3:28 PM [facility] DERMATOPATHOLOGY LABORATORY Disclaimer An external and internal positive and negative controls are appropriate for the histochemical, immunohistochemical and immunofluorescence stain(s) in this case (if any), except where stated explicitly. The performance characteristics of the stain(s) cited in this report were developed and its performance characteristic determined by the Dermatopathology Laboratory at [facility], directed by Dr. Bhavna Grande. These tests need not be, and therefore are not, approved by the [place] Food and Drug Administration. The tests are used for clinical purposes. Billing Codes Specimen Charges Stain Charges 11785 01961 1 1 3:28 PM [facility] DERMATOPATHOLOGY LABORATORY Embedded Images 3:28 PM [facility] DERMATOPATHOLOGY LABORATORY Pathology/Cytology TISSUE SPECIMEN FROM SKIN / Unknown 01/13/2019 01/14/2019 1:26 PM SENIOR ELECTRONICS ENGINEER Miscellaneous samples (specimen) TISSUE SPECIMEN FROM SKIN / Unknown 01/13/2019 01/14/2019 1:26 PM SENIOR ELECTRONICS ENGINEER Patrick Carmichael MD LAB - PATHOLOGY/CYTOLOGY ORD ERABLES Final Result DERMATOPATHOLOGY LABORATORY [facility] - Department of Dermatology [address] [place] [address] [address] Floor Lab [address] [phone] documented in this encounter Visit Diagnoses Not on filedocumented in this encounter Care Teams Gut Cleaner Relationship Specialty Start Date End Date Ambrocio Nascimento MD PCP - General 03/30/18 documented as of this encounter
--- OUTSIDE RECORDS SUMMARY | 2025-06-12 14:02 | XMS_ITS ---
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 01/26 path c/w inflammatory process, no evidence of malignancy. Aspirate and bone cultures = S. Mitis group. 01/19 CRP/ESR = 43.0/73; Blood cultures neg x2. Assessment & Plan (11/27/2020 11:19 AM PHLEBOTOMY DIRECTOR): Doing much better now. Cultures it had at that time grown S mitis Assessment & Plan (03/16/2020 1:53 PM CDT): Doing very well after finishing course of antibiotics -- OK to d/c IV antibiotics -- will arrange for tunneled line to be removed with IR -- advised patient to discuss PT with PCP to regain strength in lower back Assessment & Plan (02/07/2020 12:13 PM CDT): Pain stable and systemically well. 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 Indolent disease with no clear signs of other center of infection. 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 No evidence of malignancy. -- given extensive disease, will treat for 6-8 weeks HARVESTING CONTRACTOR 2g every day, 02/01- 03/15, at least. 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 Will need ESR/CRP at 5-6 weeks -- due to stabilty of case, good social support, and to avoid exposure to COVID- 19, OK to see back in 6 weeks, at end of therapy, only once. -- after discussion with PCP (Pily), it is apparent that records from possible PJI over 10 years ago, will not be available. However, given that patient shows no evidence of hip involvement, will defer further w/u at this time. Assessment & Plan (01/21/2020 10:45 AM PHLEBOTOMY DIRECTOR): 5 weeks of debilitating, somewhat progressive pain associated with NO overt neurological symptoms. ESR/CRP elevated. Though patient reports some urinary incontinence, symptoms are not consistent with ELA TEACHER-source of incontinence symptoms (especially given lack of fecal incontinence or parasthesia or LE weakness). Of particular interest is the fact that patient complains of lower lumbar pain, but radiological processes were identified in T11-T12. Potential infections include GPC (though clinical course for Staph problem is a bit too protracted) vs TB (though lack of risk factors) vs fungal. Though infection remains on top of differential (especially in light of suspected PJI in 2008), given history of cancers, malignancy must also be evaluated (mets vs lymphoma/leukemia). -- Given clinical stability with very limited evidence of spinal cord compromise, reasonable to continue work up as outpatient -- Appreciate Dr. Nascimento already having ordered multiple test; will await results -- Patient already referred to [facility] radiology to perform biopsy; please send fungal, AFB, and routine aerobic and anareobic bacteria culture, and pathology with special staining for infectious agents (RUELAS, AFB, gram) -- obtaining MR of full spine to fully state disease and evaluate for paraspinal abscess/mass -- given clinical stability, hold from addditional antibiotics until after biopsy, to maximize chance for isolating organism Chronic diarrhea 08/10/2019 Other hydronephrosis 07/12/2019 Overview (07/12/2019): Added automatically from request for surgery [id number] LFTs abnormal 08/26/2018 Overview (08/26/2018): Added automatically from request for surgery [id number] Adnexal cyst 07/29/2018 Overview (07/29/2018): -CT (2005) left adnexal cyst 2.5x2.8cm -CA125 = 9 (2012) -Pelvic ultrasound (11/2013) uterus 4.1x2.x83.7cm, endometrial echo 4.3mm, right ovary normal, left ovary 5x5.5x5.3cm with 4.6cm simple cyst, no free fluid -CT A/P (06/18/18) left adnexa with 5.6x4.3cm simple cyst, no LAD, no ascites, biliary ductal dilation -MRI abd (07/03/18) biliary ductal dilation -Pelvic ultrasound (07/03/18) uterus 4.2x2.5x3.6cm, endometrial echo 1mm, right ovary not seen, left ovary 6.1x6x4.2cm with simple cyst Ventral incisional hernia 07/29/2018 Dilated bile duct 07/29/2018 Peripheral neuropathy due to chemotherapy 2014 Overview (02/22/2017): Peripheral neuropathy due to chemotherapy Occipital headache 06/20/2015 Overview (02/22/2017): Unilateral occipital headache Hypertension 10/11/2013 Assessment & Plan (11/27/2020 11:18 AM PHLEBOTOMY DIRECTOR): Now with edema. Etiology is unclear. Certainly gabapentin could be playing a role with this. Will check CMP and urinalysis at this time Current Treatment and Therapy Plans No current plan information found. Past Treatment and Therapy Plans No past plan information found. Lifetime Dose Tracking * Chemical Lifetime Dose Automatic Entry Manual Entr y Fluoro Time 3.233 minutes 3.233 minutes 0 minutes Air kerma at the reference point (Ka,r) 419.85 mGy 4 19.85 mGy 0 mGy DLP 1,169 mGycm 1,169 mGycm 0 mGycm Resolved Problems Problem Noted Date Diagnosed Date Resolved Date Breast cancer 10/11/2013 07/29/2018 Overview (07/29/2018): Overview: Right T1b,N0 Stage 1; left T1C,N0 stage 1. 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
--- OUTSIDE RECORDS SUMMARY | 2025-06-12 14:02 | XMS_ITS | Clinical Summary ---
Author Organization [address] Address [address] [place] [address] Care Team Providers Care Distributor Operator Name Role Phone Ambrocio Nascimento MD Primary Care Provider [phone] Allergies Active Allergy Reactions Criticality Noted Date Comments Levofloxacin Other (See comments) Low 06/29/2019 Blood in urine Medications vitamin E 400 unit capsule dailly 0 0 5 Active Additional Information Patient taking differently: Indications: stop 5 days before surgery, Reported on 08/04/2019 ascorbic acid (ascorbic acid) 500 mg tablet,chewabl e daily 0 0 5 Active cinnamon bark (CINNAMON) 500 mg capsule daily 0 0 5 Active multivitamin tablet tablet daily 0 0 5 Active cholecalcifero l (cholecalcifer ol) 1,000 unit tablet daily 0 0 5 Active loperamide (IMODIUM) 2 mg capsule Take 1 capsule (2 mg total) by mouth 4 (four) times a day as needed for diarrhea Active acidophilus-pe ctin, citrus 100 million cell-10 mg capsule Take 1 Caplet by mouth daily Active garlic 500 mg capsule Take by mouth Active cranberry conc-ascorbic acid 4,200-20 mg capsule Take by mouth Activ e magnesium oxide 400 mg magnesium capsule Take by mouth Active metroNIDAZOLE (METROGEL) 0.75 % gel Apply topically 2 (two) times a day 3 Active doxycycline hyclate (VIBRAMYCIN) 50 mg capsule Take 1 capsule (50 mg total) by mouth daily Active hydroCHLOROthi azide (HYDRODIURIL) 25 mg tablet Take 1 tablet by mouth once daily 90 tablet 3 4 Active amLODIPine (NORVASC) 5 mg tablet Take 1 tablet by mouth once daily 90 tablet 2 4 Active gabapentin (NEURONTIN) 300 mg capsule TAKE 1 CAPSULE BY MOUTH TWICE DAILY AND 2 AT BEDTIME 360 capsule 3 5 Active HYDROcodone-ac etaminophen (NORCO) 5-325 mg per tabletIndicati ons:Pain 1 q6 hours 120 tablet 5 Active furosemide (LASIX) 40 mg tablet Take one by mouth for 5 days 5 tablet 5 Active HYDROcodone-ac etaminophen (NORCO) 5-325 mg per tabletIndicati ons:Pain 1 q6 hours 120 tablet 5 05/23/20 25 Discontin ued(Reord er) Active Problems Problem Noted Date Diagnosed Date Localized edema 01/21/2022 Assessment & Plan (01/21/2022 11:36 AM LEAD RETAIL SALES ASSOCIATE): Add spironolactone 25mg daily for a week [...] x2. Assessment & Plan (11/27/2020 11:19 AM LEAD RETAIL SALES ASSOCIATE): Doing much better now. Cultures it had [...] extensive disease, will treat for 6-8 weeks INSULATOR APPRENTICE 2g every day, 02/01- 03/15, at least. [...] time. Assessment & Plan (01/21/2020 10:45 AM LEAD RETAIL SALES ASSOCIATE): 5 weeks of debilitating, somewhat progressive pain associated with NO overt neurological symptoms. ESR/CRP elevated. 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 -- Given clinical stability with very limited evidence of spinal cord compromise, reasonable to continue work up as outpatient -- Appreciate Dr. Nascimento already having ordered multiple test; will await results -- Patient already referred to [facility] radiology to perform biopsy; please send fungal, [...] (07/12/2019): Added automatically from request for surgery [id number] LFTs abnormal 08/26/2018 Overview (08/26/2018): Added automatically from request for surgery [id number] Adnexal cyst 07/29/2018 Overview (07/29/2018): -CT (2005) [...] 10/11/2013 Assessment & Plan (11/27/2020 11:18 AM LEAD RETAIL SALES ASSOCIATE): Now with edema. Etiology is unclear. Certainly gabapentin could be playing a role with this. Will check CMP and urinalysis at this time Resolved Problems Problem Noted Date Diagnosed Date Resolved Date Breast cancer 10/11/2013 07/29/2018 Overview (07/29/2018): Overview: Right T1b,N0 Stage 1; left T1C,N0 stage 1. 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 07/29/2018 Overview (07/29/2018): Overview: ,large cell lymphoma,CHOP,R x 6 Encounters Date Type Department Care Team Description 05/26/2025 Results Follow-Up [facility] [address] [place] [address] [address] [place] [address] Jesica Aleman NP US Vein Duplex Lower Extremity Bilateral Complete, Basic metabolic panel 05/25/2025 1:00 PM CDT Ancillary Procedure [facility] [address] [place] [address] [facility] 8th [place] [address] [place] [address] Bilateral edema of lower extremity; Right leg pain 05/25/2025 10:45 AM CDT Office Visit [facility] [address] [place] [address] [address] [place] [address] Jesica Aleman NP Bilateral edema of lower extremity (Primary Dx); Right leg pain; Elevated serum creatinine; Primary hypertension 04/06/2025 Results Follow-Up [facility] [address] [place] [address] [address] [place] [address] Ambrocio Nascimento MD Basic metabolic panel 04/05/2025 Telephone [facility] [address] [place] [address] [address] [place] [address] Ambrocio Nascimento MD 03/28/2025 Telephone [facility] [address] [facility] [address] [facility] [address] [place] [address] Ambrocio Nascimento MD Foot Swelling from Last 3 Months Immunizations Immunization Administration Dates Next Due DTaP 10/26/2007 Influenza, Trivalent, High D ose, Split, Preservative Free, Intramuscular 09/16/2011 Pneumococcal Conjugate Pcv20 01/22/2023 Tdap 08/09/2024 ZOSTER LIVE 11/28/2009 ZOSTER Recombinant 01/12/2022,07/10/2021 Surgical History Surgery Date Site/Laterality Comments TOTAL HIP ARTHROPLASTY 11/17/2003 - 11/16/2004 Bilateral LOW ANTERIOR BOWEL RESECTION 11/17/1988 - 11/16/1989 ANTERIOR VAGINAL REPAIR 11/17/2010 - 11/16/2011 VEIN LIGATION AND STRIPPING 11/17/1979 - 11/16/1980 REVISION / TAKEDOWN COLOSTOMY LAPAROSCOPIC NEPHRECTOMY 11/17/2017 - 11/16/2018 Right CHOLECYSTECTOMY OPEN 11/17/2000 - 11/16/2001 BREAST LUMPECTOMY 11/17/2010 - 11/16/2011 Bilateral x 2 KIDNEY SURGERY 05/17/2018 - 06/16/2018 Right kidney removed. 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 Hypertension Family History Medical History Relation Name Comments Alcohol abuse Father Colon cancer Mother Heart disease Mother Breast cancer Mother's Sister Kidney cancer Sister Relation Name Status Comments Father Mother Mother's Sister Sister Social History Tobacco Use Types Packs/Day Years Used Date Smoking Tobacco: Never Smokeless Tobacco: Never Tobacco Cessation:Counseling Given: Not Answered Alcohol Use Standard Drinks/Week Comments No 0 (1 standard drink = 0.6 oz pur e alcohol) Comments No Sex and Gender Information Value Date Recorded Sex Assigned at Not on file Legal Sex Female 6:21 PM LEAD RETAIL SALES ASSOCIATE Gender Identity Female 01/30/2023 4:51 PM CDT Sexual Orientation Straight 01/30/2023 4: 51 PM CDT Occupation Industry Job Start Date Job End Date 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 Not on file Not on file N ot on file Obstetrics History Para Term AB IAB SAB Ectopic Multiple Livin g Live Births 4 4 4 3 4 Date Outcome GA Total Labor Labor/2nd/3rd Weight Sex Type Anes PTL Adrianna A1 A5 Name Clin Term Term Term Term Comments x 4 Last Filed Vital Signs Vital Sign Reading Time Taken Comments Blood Pressure 132/68 05/25/2025 10:58 AM CDT Pulse 69 05/25/2025 10:58 AM CDT Temperature 18.9 C (66 F) 08/04/2024 9:06 AM CDT Respiratory Rate 18 05/18/2020 1:49 PM CDT Oxygen Saturation 97% 05/07/2023 9:41 AM CDT Inhaled Oxygen Concentration - - Weight 72.1 kg (159 lb) 05/25/2025 10:58 AM CDT Height 170.2 cm (5' 7.01) 05/25/2025 10:58 AM C DT Body Mass Index 24.9 05/25/2025 10:58 AM CDT Plan of Treatment Health Maintenance Due Date Last Done Comments Depression Screening 1940 Hepatitis B Screening 1958 Well Visit 65+ 2005 Fall Risk Assessment 02/01/2021 02/02/2020 Influenza Vaccine (#1) 2025 09/16/2011 Osteoporosis Screening-Bone Density Scan 02/21/2026 07/05/2022, 07/05/2022, 10/10/2015 Postponed from 07/05/2024 (Patient declined, but will receive in the future) DTaP/Tdap/Td Vaccine (3 - Td or Tdap) 08/09/2034 08/09/2024, 10/26/2007 Zoster Vaccine Completed 01/12/2022, 07/10/2021, 11/28/2009 Pneumococcal vaccine 65+ Completed 01/22/2023 Medical Devices Implanted Type Area Product Manufacturing Professional Device Identifier Shelf Expiration Date Model / Serial / Lot Hips Bilateral : Hip [employer] 6574 Edwards Flexi-Stent 7fr 7cm Small Pigtail Flexible .035in Stent - [id number] Implanted:Qty: 1 on 09/02/2018 by Gilbert Redding MD at [facility] N/A: Bile Duct [employer] 08/16/2023 [id number] / / [id number] Explanted Type Area Product Manufacturing Professional Device Identifier Shelf Expiration Date Model / Serial / Lot [employer] Theodore 180-222 Contour 6fr 24cm Large Inner Lumen Low Profile Bladder [employer] Taper Latex Free - [id number] Implanted:Qty: 1 on 08/10/2019 by Garth Tyler MD at [facility] Explanted:Qty: 1 on 09/20/2019 by Garth Tyler MD Left: Ureter [employer] Theodore 04/25/2022 180-222 / / [id number] Procedures Procedure Name Priority Date/Time Associated Diagnosis Comments US VEIN DUPLEX LOWER EXTREMITY BILATERAL COMPLETE Schedule CARMELO, Read CARMELO (Appt Today, Awaiting Results) 05/25/2025 12:55 PM CDT Bilateral edema of lower extremity Right leg pain BASIC METABOLIC PANEL Routine 05/25/2025 11:17 AM CDT Bilateral edema of lower extremity Elevated serum creatinine BASIC METABOLIC PANEL Routine 04/05/2025 12:38 PM CDT Foot swelling from Last 3 Months Results * US Vein Duplex Lower Extremity Bilateral Complete (05/25/2025 12:55 PM CDT) Anatomical Region Laterality Modality Vascular Bilateral Ultrasound 05/25/2025 12:3 3 PM CDT Narrative 05/25/2025 5:44 PM CDT [facility] [employer] [facility] - Department of Vascular Surgery, Vascular Laboratory [address] [place] [address] Lower Extremity Venous Ultrasound Report Patient Name: JHONNY TRAMMELL : 1940 (84y 7m) Study Date: 05/25/2025 12:33:14 PM Gender: F Tech: TT Location: [facility] Ref Provider: JESICA ALEMAN Quality: Adequate Order Provider: JESICA ALEMAN PROCEDURES: Vascular Report: Venous Duplex imaging was performed bilaterally in the lower extremities. The common femoral, femoral, popliteal, posterior tibial, peroneal veins were evaluated for patency, spontaneity and phasicity with Doppler, compression and augmentation maneuvers. Great saphenous vein proximal at the junction was evaluated with compression maneuvers. INDICATIONS: R60.0 Localized edema and M79.604 Pain in right leg. FINDINGS: Performing Forming Yardage Control Operator: Erasmo Colon RVT. Bilateral: Venous Doppler signals in the bilateral lower extremity are within normal limits for spontaneity and phasicity and respond normally to augmentation maneuvers. No evidence of deep vein thrombus by duplex, proximal to the calf. CONCLUSIONS: 1. There is no evidence of acute deep vein thrombosis in the lower extremities bilaterally. Noninvasive venous studies cannot rule out isolated calf vein obstruction. HISTORY: Lower extremity edema. PREVIOUS STUDIES: Previous study performed on 06-03-19 was a negative exam. DISCLAIMER: The study images and the final report will be retained in the patient chart by the Vascular Laboratory for the legally required time period. This chart constitutes the legal record of any testing performed. ATTESTATION: I have reviewed and interpreted the pertinent images and measurements of this study. I attest to the conclusions in the final report that is provided above. Electronically Signed By: Winston Bryan MD FACS 05/25/2025 4:28:38 PM CDT Procedure Note Winston Bryan MD - 05/25/2025 [facility] - Department of Vascular Surgery,Vascular Laboratory [address] [place] [address] Lower Extremity Venous Ultrasound Report Patient Name: JHONNY TRAMMELL : 1940 (84y 7m) Study Date: 05/25/2025 12:33:14 PM Gender: F Tech: Location: [facility] Provider: JESICA ALEMAN Quality: Adequate Order Provider: JESICA ALEMAN PROCEDURES: Vascular Report: Venous Duplex imaging was performed bilaterally in the lower extremities.The common femoral, femoral, popliteal, posterior tibial, peroneal veins wereevaluated for patency, spontaneity and phasicity with Doppler, compression and augmentationmaneuvers. Great saphenous vein proximal at the junction was evaluated with compressionmaneuvers. INDICATIONS: R60.0 Localized edema and M79.604 Pain in right leg. FINDINGS: Performing Forming Yardage Control Operator: Erasmo Colon RVT. Bilateral: Venous Doppler signals in the bilateral lower extremity are within normallimits for spontaneity and phasicity and respond normally to augmentation maneuvers.No evidence of deep vein thrombus by duplex, proximal to the calf. CONCLUSIONS: 1. There is no evidence of acute deep vein thrombosis in the lowerextremities bilaterally. Noninvasive venous studies cannot rule out isolated calf veinobstruction. HISTORY: Lower extremity edema. PREVIOUS STUDIES: Previous study performed on 06-03-19 was a negative exam. DISCLAIMER: The study images and the final report will be retained in the patientchart by the Vascular Laboratory for the legally required time period. This chartconstitutes the legal record of any testing performed. ATTESTATION: I have reviewed and interpreted the pertinent images and measurements ofthis study. I attest to the conclusions in the final report that is provided above. Electronically Signed By: Winston Bryan MD, FACS 05/25/2025 4:28:38 PM CDT us Jesica Aleman PATENT LAW SPECIALIST IMG US PROCEDURES Final Resul t * (ABNORMAL) Basic metabolic panel (05/25/2025 11:17 AM CDT) Glucose 85 74 - 200 mg/dL [facility] BUN 26(H) 18 - 23 mg/dL [facility] Creatinine 1.3 0.7 - 1.3 mg/dL [facility] BUN/Creat Ratio 20 Ratio [facility] Calcium 9.4 8.8 - 10.2 mg/dL [facility] Sodium 140 135 - 145 mEq/L [facility] Potassium 3.9 3.5 - 5.1 mEq/L [facility] Chloride 106 98 - 107 mEq/L [facility] CO2 21.9(L) 22.0 - 32.0 mEq/L [facility] Anion Gap 13(H) 3 - 12 mEq/L [facility] eGFR 40.81 [facility] Blood 05/25/2025 11:1 7 AM CDT 05/25/2025 11:39 AM CDT us Jesica Aleman PATENT LAW SPECIALIST LAB BLOOD ORDERABLES Final Re sult Performing Organization Address City/[facility]/ZIP Co de Phone Number JOSEFINA LYNCHDA [address] [address] * (ABNORMAL) Basic metabolic panel (04/05/2025 12:38 PM CDT) Pathologist [facility] Glucose 85 65 - 99 mg/dL [facility] Comment: Fasting reference interval BUN 30(H) 7 - 25 mg/dL [facility] Creatinine 1.34(H) 0.60 - 0.95 mg/dL [facility] eGFR 39(L) > OR = 60 mL/min/1.7 3m2 [facility] BUN/creat ratio 22 6 - 22 (calc) [facility] Sodium 142 135 - 146 mmol/L [facility] Potassium, pl 3.5 3.5 - 5.3 mmol/L [facility] Chloride 104 98 - 110 mmol/L [facility] CO2 27 20 - 32 mmol/L [facility] Calcium 9.3 8.6 - 10.4 mg/dL [facility] Blood 04/05/2025 12:3 8 PM CDT 04/05/2025 12:38 PM CDT Ambrocio Nascimento MD LAB BLOOD ORDERABLES Final Re sult [facility] [address] [place] [address] from Last 3 Months Insurance AETNA MEDICARE GOLD AETNA MEDICARE GOLD AETNA MEDICARE GOLD AETNA MEDICARE GOLD AETNA MEDICARE GOLD Advance Directives For more information, please contact: [phone] * Full Code (Latest Code Status on File) Date Activated Date Inactivated Comments 02/02/2020 8:18 AM 02/02/2020 1:21 PM * Full Code Date Activated Date Inactivated Comments 01/27/2020 1:23 PM 01/27/2020 6:58 PM * Full Code Date Activated Date Inactivated Comments 09/02/2018 8:38 AM 09/02/2018 3:47 PM Care Teams Distributor Operator Relationship Specialty Start Date End Date Ambrocio Nascimento MD PCP - General 06/20/15
--- OUTSIDE RECORDS SUMMARY | 2025-06-12 14:02 | XMS_ITS | Encounter Summary ---
Author Organization [facility] Address [address] [place] [address] [place] [address] Care Team Providers Care Auto Heater Mechanic Name Role Phone Ambrocio Nascimento MD Primary Care Provider [phone] Encounter Details Date Type Department Care Team (Late st Contact Info) Description 11/08/2020 Lab Requisition [facility] [address] [place] [id number] [place] [address] Social History Tobacco Use Types Packs/Day Years Used Date Smoking Tobacco: Never Assessed Comments Unknown Sex and Gender Information Value Date Recorded Sex Assigned at Not on file Legal Sex Female 4:44 AM MANUFACTURING OPERATOR Gender Identity Not on file Sexual Orientation Not on file documented as of this encounter Plan of Treatment Not on file documented as of this encounter Procedures Procedure Name Priority Date/Time Associated Diagnosis Comments DERMATOPATHOLOGY Routine 11/07/2020 12:0 0 AM MANUFACTURING OPERATOR documented in this encounter Results * DERMATOPATHOLOGY (11/07/2020 12:00 AM MANUFACTURING OPERATOR) Case Report Dermatopathology Report Case: [id number] Authorizing Provider: Patrick Carmichael MD Collected: 11/07/2020 12:00 AM Ordering Location: [facility] Received: 11/08/2020 09:51 AM Pathologist: Aretha Bocanegra MD Specimen: Skin, left cheek 0 1:21 PM MANUFACTURING OPERATOR DERMATOPATHOLOGY LABORATORY Final Diagnosis Specimen A. 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 0 1:21 PM [facility] DERMATOPATHOLOGY [facility]ORATORY Gross Description Specimen A: Received is one formalin filled container labeled with the patient's name and designated left cheek. The specimen consists of a punch biopsy measuring [id number]. Jar 0. 0 1:21 PM [facility] DERMATOPATHOLOGY LABORATORY Microscopic Description Specimen A. SKIN, left cheek: Sections show acanthosis, hypergranulosis, and hyperkeratosis. The papillary dermis is fibrotic. There is focal parakeratosis and spongiosis. In the dermis there is a mainly superficial perivascular lymphohistiocytic inflammatory infiltrate with eosinophils. COMMENT: The histological differential diagnosis includes lichen simplex chronicus, nummular eczema, a contact dermatitis, an eczematous drug eruption, and less likely the urticarial phase of bullous pemphigoid. Additional deeper sections were obtained and reviewed. 0 1:21 PM [facility] DERMATOPATHOLOGY [facility]ORATORY Disclaimer An external and internal positive and negative controls are appropriate for the histochemical, immunohistochemical and immunofluorescence stain(s) in this case (if any), except where stated explicitly. The performance characteristics of the stain(s) cited in this report were developed and its performance characteristic determined by the Dermatopathology Laboratory at [facility], directed by Dr. Bhavna Grande. These tests need not be, and therefore are not, approved by the [place] Food and Drug Administration. The tests are used for clinical purposes. Billing Codes Specimen Charges Stain Charges 98359 1 0 1:21 PM [facility] DERMATOPATHOLOGY [facility]ORATORY Embedded Images 0 1:21 PM [facility] DERMATOPATH[facility]OR[facility]ORY Pathology/Cytolog y TISSUE SPECIMEN FROM SKIN / Unknown 11/07/2020 11/08/2020 9:51 AM [facility] Patrick Carmichael MD LAB - PATHOLOGY/CYTOLOGY ORD ERABLES Final Result DERMATOPATHOLOGY LABORATORY [facility] - Department of Dermatology [facility] [address] [place] [address], [address] [phone] documented in this encounter Visit Diagnoses Not on filedocumented in this encounter Care Teams Auto Heater Mechanic Relationship Specialty Start Date End Date Ambrocio Nascimento MD PCP - General 03/30/18 documented as of this encounter
--- OUTSIDE RECORDS SUMMARY | 2025-06-12 14:02 | XMS_ITS | Continuity of Care Document ---
Author Organization [facility] Address [address] [place] [address] [address] [place] [address] Phone Care Team Providers Care Carbonation Equipment Operator Name Role Phone Nicholas OD, [facility] Unavailable Unavailable Advance Directives Directive Yes / No Effective Date File Name No Information Encounters Encounter Description Practice Location Reason(s) For Visit Diagnoses Date Provider Providers Copied on Encounter [facility], [address] [place] [address] [address], [place], [place], [id number], [place] tel:[phone] [facility] No Information 1-200 6 Nicholas OD [facility]. [address] , [address], [place], [address], [place]. tel:[phone] Family History Family Member Type Diagnosis Age At Onset No Information Payers Payer name Insurance type Covered constitution party ID Authoriza tion(s) [employer] Md[employer] Adv CI [id number] Social History Type Description Quantity Date Captured Comments Sex Female Smoking Status No Information Chief Complaint And Reason For Visit No Information Reason For Referral Reason For Referral No Information History Of Present Illness Encounter Date Complaint History Of Prese nt Illness No Information Functional Status Date Functional Assessmen t No Information Instructions Date Instruction Additional Infor mation No Information Assessments Type Assessment Date No Information Patient Care Teams Name Effective Dates (start - stop) Status Members No Information
--- OUTSIDE RECORDS SUMMARY | 2025-06-12 14:02 | XMS_ITS | Clinical Summary ---
Author Organization [facility] Address [address] [place] [address] Phone Care Team Providers Care Community Specialist Name Role Phone Ambrocio Nascimento MD Primary Care Provider Allergies Active Allergy Reactions Criticality Noted Date Comments Levofloxacin Other (see comments) Low 06/29/2019 Other reaction(s): Urinary Retention Blood in urine Medications HYDROcodone-eulalio taminophen (NORCO) 5-325 MG per tablet 09/03/2021 Activ e quinapril-hydro CHLOROthiazide (ACCURETIC) 10-12.5 MG per tablet 09/23/2021 Active ascorbic acid (VITAMIN C) 500 MG tablet 500 mg 06/19/2015 Active cholecalciferol (VITAMIN D-3) 25 MCG (1000 UT) tablet daily 06/19/2015 Active cinnamon 500 MG capsule 500 mg 06/19/2015 Active gabapentin (NEURONTIN) 300 MG capsule TAKE 1 CAPSULE(300 MG) BY MOUTH THREE TIMES DAILY 08/23/2019 Active Lactobacillus Acid-Pectin (Acidophilus/Pe ctin) capsule Take by mouth daily Active loperamide (IMODIUM) 2 MG capsule Take 2 mg by mouth Active Multiple Vitamins-Minera ls (QC Womens Daily Multivitamin) tablet Take by mouth Active alpha tocopherol (VITAMIN E) 400 units capsule dailly 06/19/2015 Activ e mometasone (ELOCON) 0.1 % cream APPLY TO RASH ON FACE TWICE DAILY 01/23/2022 Active mupirocin (BACTROBAN) 2 % ointment APPLY TO THE AFFECTED AREA(S) TWICE DAILY TO RASH ON FACE 01/23/2022 Active spironolactone (ALDACTONE) 25 MG tablet Take 25 mg by mouth 1 (one) time each day 01/21/2022 Active Active Problems Problem Noted Date Diagnosed Date Localized edema 01/21/2022 Overview (02/25/2022): Last Assessment & Plan: Add spironolactone 25mg daily for a week To call/message in 1 week with weights and how swelling is doing Limit sodium Increase water Neuropathy 10/24/2021 Occlusion of ureter 07/25/2021 Overview (10/24/2021): Stent placed and subsequently removed Recurrent urinary tract infection 07/25/2021 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 01/26 path c/w inflammatory process, no evidence of malignancy. Aspirate and bone cultures = S. Mitis group. 01/19 CRP/ESR = 43.0/73; Blood cultures neg x2. Last Assessment & Plan: Doing much better now. 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 Etiology is unclear. Certainly gabapentin could be playing a role with this. Will check CMP and urinalysis at this time Malignant tumor of breast 06/24/2011 Overview (10/24/2021): Right T1b,N0 Stage 1; left T1C,N0 stage 1. Er/[place] +her2- June 2011 Dr Jarod Potter History of malignant neoplasm of digestive organ 10/18/2009 Overview (10/24/2021): [place] B1 rectal cancer,s/p rt,chemo and surgery, 1988.with no recurrence Immunizations Immunization Administration Dates Next Due DTaP 10/26/2007 Influenza Split High Dose Preservative Free IM 1 Zoster 11/28/2009 Family History Medical History Relation Comments Alcohol abuse Father Colon cancer Mother Heart disease Mother Kidney cancer Sister Relation Status Comments Father Mother Sister Social History Tobacco Use Types Packs/Day Years Used Date Smoking Tobacco: Never Smokeless Tobacco: Never Alcohol Use Standard Drinks/Week Comments Never 0 (1 standard drink = 0.6 oz pur e alcohol) Comments Unknown Sex and Gender Information Value Date Recorded Sex Assigned at Not on file Legal Sex Female 10:54 AM [facility] Gender Identity Not on file Sexual Orientation Not on file Last Filed Vital Signs Vital Sign Reading Time Taken Comments Blood Pressure 132/68 07/10/2022 9:33 AM CDT Pulse - - Temperature 36.3 C (97.4 F) 07/10/2022 9:33 AM CDT Respiratory Rate 18 07/10/2022 9:33 AM CDT Oxygen Saturation - - Inhaled Oxygen Concentration - - Weight 73.5 kg (162 lb) 07/10/2022 9:33 AM CDT Height 162.6 cm (5' 4) 07/10/2022 9:33 AM CDT Body Mass Index 27.81 07/10/2022 9:33 AM CDT Plan of Treatment Health Maintenance Due Date Last Done Comments Pneumococcal PPSV23/PCV13 65 + Years / Low and Medium Risk (1 of 2 - PCV) 1990 Influenza Vaccine (#1) 2025 Insurance AET[employer] MEDICARE ADVANTAGE Care Teams Community Specialist Relationship Specialty Start Date End Date Ambrocio Nascimento MD PCP - General Internal Medicine 10/09/21
--- OUTSIDE RECORDS SUMMARY | 2025-06-12 14:02 | XMS_ITS | Referral Summary ---
Author Organization [place] [id number] [facility] Address [address] [place] [address] Care Team Providers Care Pharmacy Aide Name Role Phone Ambrocio Nascimento MD Primary Care Provider [phone] Encounters Date Type Department Care Team Description 05/26/2025 Results Follow-Up [facility] [address] [place] [address] [address] [place] [address] Jesica Aleman NP US Vein Duplex Lower Extremity Bilateral Complete, Basic metabolic panel 05/25/2025 1:00 PM CDT Ancillary Procedure [facility] Vascular Lab at the [address] [place] [address] [place] [id number] Bilateral edema of lower extremity; Right leg pain 05/25/2025 10:45 AM CDT Office Visit [facility] [address] [place] [address] [address] [place] [address] Jesica Aleman NP Bilateral edema of lower extremity (Primary Dx); Right leg pain; Elevated serum creatinine; Primary hypertension 04/06/2025 Results Follow-Up [facility] [address] [place] [address] [address] [place] [address] Ambrocio Nascimento MD Basic metabolic panel 04/05/2025 Telephone [facility] [address] [place] [address] [address] [place] [phone] Ambrocio Nascimento MD 03/28/2025 Telephone [email or web address] [address] [facility] [address] [facility] [address] [place] [address] Ambrocio Nascimento MD Foot Swelling from Last 3 Months Allergies Active Allergy Reactions Criticality Noted Date [...] 01/21/2022 Assessment & Plan (01/21/2022 11:36 AM ARMATURE WINDER): Add spironolactone 25mg daily for a week [...] x2. Assessment & Plan (11/27/2020 11:19 AM ARMATURE WINDER): Doing much better now. 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 [...] time. Assessment & Plan (01/21/2020 10:45 AM ARMATURE WINDER): 5 weeks of debilitating, somewhat progressive pain associated with NO overt neurological symptoms. ESR/CRP elevated. Though patient reports some urinary incontinence, symptoms are not consistent with PRODUCT ADVISOR-source of incontinence symptoms (especially given lack of [...] await results -- Patient already referred to [facility] radiology to perform biopsy; please send fungal, [...] (07/12/2019): Added automatically from request for surgery [id number] LFTs abnormal 08/26/2018 Overview (08/26/2018): Added automatically from request for surgery [id number] Adnexal cyst 07/29/2018 Overview (07/29/2018): -CT (2005) [...] 10/11/2013 Assessment & Plan (11/27/2020 11:18 AM ARMATURE WINDER): Now with edema. Etiology is unclear. Certainly gabapentin could be playing a role with this. Will check CMP and urinalysis at this time Resolved Problems Problem Noted Date Diagnosed Date Resolved Date Breast cancer 10/11/2013 07/29/2018 Overview (07/29/2018): Overview: Right T1b,N0 Stage 1; left T1C,N0 stage 1. 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 07/29/2018 Overview (07/29/2018): Overview: ,large cell lymphoma,CHOP,R x 6 Immunizations Immunization Administration Dates Next Due DTaP 10/26/2007 Influenza, Trivalent, High D ose, Split, Preservative Free, Intramuscular 09/16/2011 Pneumococcal Conjugate Pcv20 01/22/2023 Tdap 08/09/2024 ZOSTER LIVE 11/28/2009 ZOSTER Recombinant 01/12/2022,07/10/2021 Social History Tobacco Use Types Packs/Day Years Used Date Smoking Tobacco: Never Smokeless Tobacco: Never Tobacco Cessation:Counseling Given: Not Answered Alcohol Use Standard Drinks/Week Comments No 0 (1 standard drink = 0.6 oz pur e alcohol) Comments No Sex and Gender Information Value Date Recorded Sex Assigned at Not on file Legal Sex Female 6:21 PM [facility]URE WINDER Gender Identity Female 01/30/2023 4:51 PM CDT Sexual Orientation Straight 01/30/2023 4: 51 PM CDT 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 Industry 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 Start 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 Not on file Not on file N ot on file Last Filed Vital Signs Vital [...] 05/25/2025 10:58 AM CDT Plan of Treatment Not on file Medical Devices Implanted Type Area Shirring Machine Operator Device Identifier Shelf Expiration Date Model / Serial / Lot Hips Bilateral : Hip [employer] 6574 [address] Flexi-Stent 7fr 7cm Small Pigtail Flexible .035in Stent - [id number] Implanted:Qty: 1 on 09/02/2018 by Gilbert Redding MD at [facility] N/A: Bile Duct [employer] 08/16/2023 [id number] / / [id number] Explanted Type Area Shirring Machine Operator Device Identifier Shelf Expiration Date Model / Serial / Lot [employer] Theodore 180-222 Contour 6fr 24cm Large Inner Lumen Low Profile Bladder Duke Taper Latex Free - [id number] Implanted:Qty: 1 on 08/10/2019 by Garth Tyler MD at [facility] Explanted:Qty: 1 on 09/20/2019 by Garth Tyler MD Left: Ureter [employer] Theodore 04/25/2022 180-222 / / [id number] Procedures Procedure Name Priority Date/Time Associated Diagnosis [...] PM CDT Narrative 05/25/2025 5:44 PM CDT [facility] - Department of Vascular Surgery, Vascular Laboratory [address] [place] [address] Lower Extremity Venous Ultrasound Report Patient Name: JHONNY TRAMMELL : 1940 (84y 7m) Study Date: 05/25/2025 12:33:14 PM Gender: F Tech: TT Location: [facility] Ref Provider: JESICA ALEMAN Quality: Adequate Order [...] M79.604 Pain in right leg. FINDINGS: Performing Football Coach: Erasmo Colon RVT. Bilateral: Venous Doppler signals [...] Procedure Note Winston Bryan MD - 05/25/2025 [facility] - Department of Vascular Surgery,Vascular Laboratory [address] [place] [id number] Lower Extremity Venous Ultrasound Report Patient Name: JHONNY TRAMMELL : 1940 (84y 7m) Study Date: 05/25/2025 12:33:14 PM Gender: F Tech: TT Location: [facility] Ref Provider: JESICA ALEMAN Quality: [...] M79.604 Pain in right leg. FINDINGS: Performing Football Coach: Erasmo Colon RVT. Bilateral: Venous Doppler signals [...] Bryan MD FACS 05/25/2025 4:28:38 PM CDT us Jesica Aleman EQUIPMENT OR MACHINERY CLEANER IMG US PROCEDURES Final Resul t * [...] 7 AM CDT 05/25/2025 11:39 AM CDT Jesica Aleman NP LAB BLOOD ORDERABLES Final Re sult JOSEFINA SUGGS [address] [address], [facility] * (ABNORMAL) Basic metabolic panel (04/05/2025 12:38 PM CDT) Glucose 85 65 - 99 mg/dL [facility] [...] BLOOD ORDERABLES Final Re sult [facility] [address] [place] [address] from Last 3 Months Insurance AETNA MEDICARE GOLD AETNA MEDICARE GOLD AETNA MEDICARE GOLD AETNA MEDICARE GOLD AETNA MEDICARE GOLD Advance Directives For more information, please contact: [phone] * Full Code (Latest Code Status on File) Date Activated Date Inactivated Comments 02/02/2020 8:18 AM 02/02/2020 1:21 PM * Full Code Date Activated Date Inactivated Comments 01/27/2020 1:23 PM 01/27/2020 6:58 PM * Full Code Date Activated Date Inactivated Comments 09/02/2018 8:38 AM 09/02/2018 3:47 PM Care Teams Pharmacy Aide Relationship Specialty Start Date End Date Ambrocio Nascimento MD PCP - General 06/20/15
--- OUTSIDE RECORDS SUMMARY | 2025-06-12 14:02 | XMS_ITS | Encounter Summary ---
Author Organization [facility] Address [address] [place] [address] [place] [address] Care Team Providers Care Pilot Instructor Name Role Phone Ambrocio Nascimento MD Primary Care Provider [phone] Encounter Details Date Type Department Care Team (Late st Contact Info) Description 06/10/[address] 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 Gender Identity Not on file Sexual Orientation Not on file documented as of this encounter Plan of Treatment Not on file documented as of this encounter Procedures Procedure Name Priority Date/Time Associated Diagnosis Comments DERMATOPATHOLOGY Routine 06/09/2018 12:0 0 AM CDT documented in this encounter Results * DERMATOPATHOLOGY (06/09/2018 12:00 AM CDT) Case Report Dermatopathology Report Case: [id number] Authorizing Provider: Patrick Carmichael MD Collected: 06/09/2018 12:00 AM Pathologist: Shital Grande MD Received: 06/10/2018 12:05 PM Specimens: A) - Skin, right lateral zygoma B) - Skin, right cheek 8 5:11 PM CDT DERMATOPATHOLOGY LABORATORY Final Diagnosis Specimen A. SKIN, right lateral zygoma: SQUAMOUS PAPILLOMA, BENIGN (L91.8) (see microscopic description) Specimen B. SKIN, right cheek: INTRADERMAL MELANOCYTIC NEVUS (D22.39) 8 5:11 PM T DERMATOPATHOLOGY LABORATORY at 1711 CDT Clinical History A-B: R/O dys nevus. 5:11 PM CDT DERMATOPATHOLOGY LABORATORY Gross Description Specimen A: Received is one formalin filled container labeled with the patient's name and designated right lateral zygoma. The specimen consists of a shave biopsy measuring [id number]. Jar 0. Specimen B: Received is one formalin filled container labeled with the patient's name and designated right cheek. The specimen consists of a shave biopsy measuring 3b9d4fw. Jar 0. 5:[address] [facility] DERMATOPATHOLOGY LABORATORY Microscopic Description Specimen A. SKIN, right lateral zygoma: There is hyperkeratosis, papillomatosis, and acanthosis of the epidermis. The keratinocytes are mature. Additional deeper sections were obtained and reviewed. Specimen B. SKIN, right cheek: There are nests of cytologically bland melanocytes within the dermis that mature with depth. 5:11 PM T DERMATOPATHOLOGY LABORATORY Disclaimer An external and internal positive and negative controls are appropriate for the histochemical, immunohistochemical and immunofluorescence stain(s) in this case (if any), except where stated explicitly. The performance characteristics of the stain(s) cited in this report were developed and its performance characteristic determined by the Dermatopathology Laboratory at [facility]. These tests need not be, and therefore are not, approved by the [place] Food and Drug Administration. The tests are used for clinical purposes. Billing Codes Specimen Charges Stain Charges 68217 45573 1 1 8 5:11 PM CDT DERMATOPATHOLOGY LABORATORY Embedded Images 5:11 PM CDT DERMATOPATHOLOGY LABORATORY Pathology/Cytology TISSUE SPECIMEN FROM SKIN / Unknown 06/09/2018 06/10/2018 12:05 PM CDT Miscellaneous samples (specimen) TISSUE SPECIMEN FROM SKIN / Unknown 06/09/2018 06/10/2018 12:05 PM CDT us Patrick Carmichael MD LAB - PATHOLOGY/CYTOLOGY ORD ERABLES Final Result DERMATOPATHOLOGY LABORATORY [facility] - Department of Dermatology [address] [place] [address], 5th [place] [address], [facility] [phone] documented in this encounter Visit Diagnoses Not on filedocumented in this encounter Care Teams Pilot Instructor Relationship Specialty Start Date End Date Ambrocio Nascimento MD PCP - General 03/30/18 documented as of this encounter
--- OUTSIDE RECORDS SUMMARY | 2025-06-12 14:02 | XMS_ITS | Encounter Summary ---
Author Organization [facility] Address [address] [facility] [place] [address] Care Team Providers Care Records Technician Name Role Phone Ambrocio Nascimento MD Primary Care Provider [phone] Encounter Details Date Type Department Care Team (Late st Contact Info) Description 01/27/2025 Lab Requisition [facility] Physician [facility] - DermPath Lab [address] [facility] [place] [address] Christina Rasmussen DO [address] [facility] [address] [place] [address] Social History Tobacco Use Types Packs/Day Years Used Date Smoking Tobacco: Never Assessed Comments Unknown Sex and Gender Information Value Date Recorded Sex Assigned at Not on file Legal Sex Female 4:44 AM [employer]ERSON[employer] APPRAISER Gender Identity Not on file Sexual Orientation Not on file documented as of this encounter Plan of Treatment Not on file documented as of this encounter Procedures Procedure Name Priority Date/Time Associated Diagnosis Comments DERMATOPATHOLOGY Routine 01/27/2025 1:33 PM CDT documented in this encounter Results * DERMATOPATHOLOGY (01/27/2025 1:33 PM CDT) Case Report Dermatopathology Report Case: [id number] Authorizing Provider: Christina Rasmussen DO Collected: 01/27/2025 01:33 PM Ordering Location: [facility] Physician [facility] - Received: 01/31/2025 09:01 AM DermPath Lab Pathologist: Radha Acuña MD Specimen: Skin, left anterior low ext 03/18/202 5 2:16 PM CDT DERMATOPATHOLOGY LABORATORY Final Diagnosis Specimen A. SKIN, left anterior low ext: ACTINIC KERATOSIS (L57.0) STASIS DERMATITIS (L30.8) 2:16 PM CDT DERMATOPATHOLOGY LABORATORY at 1416 CDT Clinical History ISK; R/O NMSC 2:16 PM CDT DERMATOPATHOLOGY LABORATORY Gross Description Specimen A: Received is one formalin filled container labeled with the patient's name and designated left anterior low ext. The specimen consists of a shave biopsy measuring 7x6x2 mm. Jar 0. 2:16 PM CDT DERMATOPATHOLOGY LABORATORY Microscopic Description Specimen A. SKIN, left anterior low ext: There is focal parakeratosis. The lower half of the epidermis shows disorderly maturation of keratinocytes with nuclear pleomorphism. There is focal spongiosis. The dermis shows a sparse, perivascular lymphocytic infiltrate surrounding dilated, thick-walled vessels, which are increased in number. 2:16 PM CDT DERMATOPATHOLOGY LABORATORY Disclaimer An external and internal positive and negative controls are appropriate for the histochemical, immunohistochemical and immunofluorescence stain(s) in this case (if any), except where stated explicitly. The performance characteristics of the stain(s) cited in this report were developed and its performance characteristic determined by the Dermatopathology Laboratory at [facility], directed by Dr. Bhavna Grande. These tests need not be, and therefore are not, approved by the [place] Food and Drug Administration. The tests are used for clinical purposes. Billing Codes Specimen Charges Stain Charges 84503 1 2:16 PM CDT DERMATOPATHOLOGY LABORATORY Embedded Images 2:16 PM CDT DERMATOPATHOLOGY LABORATORY Pathology/Cytolo gy TISSUE SPECIMEN FROM SKIN / Unknown 01/27/2025 1:33 PM CDT 01/31/2025 9:01 AM CDT us Christina Rasmussen DO LAB - PATHOLOGY/CYTOLOGY ORDERABLES Final Result DERMATOPATHOLOGY LABORATORY [facility] - Department of Dermatology [address] [phone] documented in this encounter Visit Diagnoses Not on filedocumented in this encounter Care Teams Records Technician Relationship Specialty Start Date End Date Ambrocio Nascimento MD PCP - General 03/30/18 documented as of this encounter
--- OUTSIDE RECORDS SUMMARY | 2025-06-12 14:02 | XMS_ITS | Encounter Summary ---
Author Organization [facility] Address [address] [facility] [place] [address] Care Team Providers Care Enterprise Records Analyst Name Role Phone Ambrocio Nascimento MD Primary Care Provider [phone] Encounter Details Date Type Department Care Team (Late st Contact Info) Description 07/14/2024 Lab Requisition [facility] - DermPath Lab [address] [facility], [place] [address] Christina Rasmussen DO [address] [facility] [address] [place] [address] Social History Tobacco Use Types Packs/Day Years Used Date Smoking Tobacco: Never Assessed Comments Unknown Sex and Gender Information Value Date Recorded Sex Assigned at Not on file 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 Sex 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 Gender Identity Not on file Sexual Orientation Not on file documented as of this encounter Plan of Treatment Not on file documented as of this encounter Procedures Procedure Name Priority Date/Time Associated Diagnosis Comments DERMATOPATHOLOGY Routine 07/14/2024 9:19 AM CDT documented in this encounter Results * DERMATOPATHOLOGY (07/14/2024 9:19 AM CDT) Case Report Dermatopathology Report Case: [id number] Authorizing Provider: Christina Rasmussen DO Collected: 07/14/2024 09:19 AM Ordering Location: [facility] - Received: 07/14/2024 05:31 PM DermPath Lab Pathologist: Negra Acuña MD Specimen: Skin, right antermedial LE 08/30/202 4 2:06 PM CDT DERMATOPATHOLOGY LABORATORY Final Diagnosis Specimen A. SKIN, right antermedial LE: BENIGN VERRUCOUS KERATOSIS (L82.1) STASIS CHANGE (L30.8) 4 2:06 PM T DERMATOPATHOLOGY LABORATORY at 1406 CDT Clinical History R?O NMSC 4 2:06 PM T DERMATOPATHOLOGY LABORATORY Gross Description Specimen A: Received is one formalin filled container labeled with the patient's name and designated right antermedial LE. The specimen consists of a shave biopsy measuring 3x3x1 mm. Jar 0. 4 2:06 PM T DERMATOPATHOLOGY LABORATORY Microscopic Description Specimen A. SKIN, right antermedial LE: Sections show hyperkeratosis, papillomatosis, hypergranulosis, and acanthosis. These histological findings can be seen in a verruca vulgaris or a seborrheic keratosis. The dermis shows a sparse, perivascular lymphocytic infiltrate surrounding dilated, thick-walled vessels, which are increased in number. 4 2:06 PM T DERMATOPATHOLOGY LABORATORY Disclaimer An external and internal positive and negative controls are appropriate for the histochemical, immunohistochemical and immunofluorescence stain(s) in this case (if any), except where stated explicitly. The performance characteristics of the stain(s) cited in this report were developed and its performance characteristic determined by the Dermatopathology Laboratory at [facility], directed by Dr. Bhavna Grande. These tests need not be, and therefore are not, approved by the [place] Food and Drug Administration. The tests are used for clinical purposes. Billing Codes Specimen Charges Stain Charges 70259 1 4 2:06 PM CDT DERMATOPATHOLOGY LABORATORY Embedded Images 4 2:06 PM CDT DERMATOPATHOLOGY LABORATORY Pathology/Cytolo gy TISSUE SPECIMEN FROM SKIN / Unknown 07/14/2024 9:19 AM CDT 07/14/2024 5:31 PM CDT us Christina Rasmussen DO LAB - PATHOLOGY/CYTOLOGY ORDERABLES Final Result DERMATOPATHOLOGY LABORATORY [facility] - Department of Dermatology [address] [phone] documented in this encounter Visit Diagnoses Not on filedocumented in this encounter Care Teams Enterprise Records Analyst Relationship Specialty Start Date End Date Ambrocio Nascimento MD PCP - General 03/30/18 documented as of this encounter
--- OUTSIDE RECORDS SUMMARY | 2025-06-12 14:03 | XMS_ITS | Clinical Summary ---
Author Organization [facility] Address [address] [place] [address] Care Team Providers Care Semiconductor Processing Group Leader Name Role Phone Ambrocio Nascimento MD Primary Care Provider [phone] Allergies Active Allergy Reactions Criticality Noted Date Comments Levofloxacin Urinary Retention Low 06/29/2019 Medications Multivitamins-Ca- Iron-Minerals 18-0.4 mg TabletIndications :Other malignant lymphomas of intrapelvic lymph nodes,History of rectal or anal cancer,Unspecifie d essential hypertension Take by mouth. Active CALCIUM CARBONATE/VITAMIN D3 (CALCIUM 500 + D, D3, ORAL)Indications: Other malignant lymphomas of intrapelvic lymph nodes,History of rectal or anal cancer,Unspecifie d essential hypertension Take by mouth. 1/2 Active ERGOCALCIFEROL, VITAMIN D2, (VITAMIN D ORAL) Take by mouth. Active LOPERAMIDE HCL (IMODIUM ORAL)Indications: Breast cancer (CMS/HCC) Take by mouth. 8 daily Active ASCORBIC ACID (VITAMIN C ORAL)Indications: Breast cancer (CMS/HCC) Take by mouth. Active POTASSIUM (POTASSIMIN ORAL)Indications: Breast cancer (CMS/HCC) Take by mouth. 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 01/21/2022 Active amLODIPine (NORVASC) 2.5 mg tablet Take 2.5 mg by mouth daily. Active hydroCHLOROthiazi de 12.5 mg tablet Take 12.5 mg by mouth daily. Active Active Problems Patient Care Coordination No te Formatting of this note migh t be different from the original. Primary Care: Ambrocio Nascimento MD Referring Provider: Ambrocio Nascimento MD [address] [facility] [address] [place] [address] Other: Dr Sabrina Potter Problem Noted Date Diagnosed Date Painless hematuria 04/28/2018 Overview (04/28/2018): Renal/ureteral malignancy Breast cancer- right and left 06/24/2011 Overview (09/28/2013): Right T1b,N0 Stage 1; left T1C,N0 stage 1. 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/29/2019 Overview (10/18/2009): ,large cell lymphoma,CHOP,R x 6 Non-Hodgkin's lymphoma 12/29 Overview (07/15/2011): 11years ago 60 Encounters Date Type Department Care Team Description 06/01/2025 External Device Data STL ABSTRACTION Provider, Abstract 05/31/2025 External Device Data STL ABSTRACTION Provider, Abstract 05/10/2025 External Device Data STL ABSTRACTION Provider, Abstract 04/19/2025 External Device Data STL ABSTRACTION Provider, Abstract 04/12/2025 External Device Data STL ABSTRACTION Provider, Abstract 04/07/2025 External Device Data STL ABSTRACTION Provider, Abstract 04/05/2025 External Device Data STL ABSTRACTION Provider, Abstract 03/23/2025 Telephone [facility] [address] [place] [address] Cathy Olivera MD impetigo from Last 3 Months Immunizations Immunization Administration Dates Next Due (INFANRIX)(6 WKS-6 YRS) DIPT HERIA, TETANUS TOXOIDS, AND ACCELLULAR PERTUSSIS VACCINE (DTAP), 0.5 ML IM 10/26/2007 Influenza Vaccine High Dose 65+ Yrs IM 1 Zoster Vaccine Live SQ 11/28/2009 Family History Medical History Relation Name Comments Cancer Brother umbilical cance r Breast Cancer Maternal Aunt Cancer Sister non hodgkins ly mphoma Relation Name Status Comments Brother Maternal Aunt Sister Social History Tobacco Use Types Packs/Day Years Used Date Smoking Tobacco: Never Smokeless Tobacco: Never Tobacco Cessation:Counseling Given: Not Answered Alcohol Use Standard Drinks/Week Comments No 0 (1 standard drink = 0.6 oz pur e alcohol) Comments No Sex and Gender Information Value Date Recorded Sex Assigned at Not on file Legal Sex Female 5:42 AM LOADER SEMICONDUCTOR DIES Gender Identity Not on file Sexual Orientation Not on file Occupation Industry Job Start Date Job End Date Not on file Not on file Not on file Not on file Last Filed Vital Signs Vital Sign Reading Time Taken Comments Blood Pressure 146/64 01/20/2025 10:10 AM LOADER SEMICONDUCTOR DIES Dr Olivera aware-pt takes BP meds at night Pulse 68 01/20/2025 10:10 AM LOADER SEMICONDUCTOR DIES Temperature 36.9 C (98.5 F) 01/20/2025 10:10 AM LOADER SEMICONDUCTOR DIES Respiratory Rate 16 01/20/2025 10:1 0 AM LOADER SEMICONDUCTOR DIES Oxygen Saturation 98% 01/20/2025 10: 10 AM LOADER SEMICONDUCTOR DIES Inhaled Oxygen Concentration - - Weight 68 kg (150 lb) 08/13/2022 10:23 AM CDT Height 175.3 cm (5' 9) 01/20/2025 10:1 0 AM LOADER SEMICONDUCTOR DIES Body Mass Index 22.15 08/13/2022 10:23 AM CDT Plan of Treatment Health Maintenance Due Date Last Done Comments ZOSTER VACCINE (2 of 3) 01/23/2010 11/28/2009 RSV VACCINE (60+ or ) (1 - 1-dose 75+ series) 2015 DTAP/TDAP/TD VACCINES (2 - Tdap) 10/26/2017 10/26/20 07 INFLUENZA VACCINE (#1) 2025 09/16/2011 OSTEOPOROSIS SCREENING 07/05/2027 07/05/2022, 2014 PNEUMOCOCCAL VACCINE 50+ YEARS Completed 01/22/2023 Procedures Procedure Name Priority Date/Time Associated Diagnosis Comments XR DEXA BONE DENSITY AXIAL 1 OR MORE SITES Routine 07/05/2022 Postmenopausal from Last 3 Months or Most Recently Relevant to Health Maintenance Results * XR DEXA BONE DENSITY AXIAL 1 OR MORE SITES (07/05/2022) T-SCORE FEMUR ENTERTAINER & COMIC AL RADIOLOGY T-SCORE FEMUR (LEFT) EXTERNAL RADIOLOGY T-SCORE FEMUR (RIGHT) EXTERNAL RADIOLOGY T-SCORE FEMUR NECK EXTERNAL RADIOLOGY T-SCORE FEMORAL NECK (LEFT) EXTERNAL RADIOLOGY T-SCORE FEMORAL NECK (RIGHT) EXTERNAL RADIOLOGY T-SCORE HEEL EXTERNA L RADIOLOGY T-SCORE HEEL (LEFT) EXTERNAL RADIOLOGY T-SCORE HEEL (RIGHT) EXTERNAL RADIOLOGY T-SCORE HIP EXTERNAL RADIOLOGY T-SCORE HIP (LEFT) EXTERNAL RADIOLOGY T-SCORE HIP (RIGHT) EXTERNAL RADIOLOGY T-SCORE WRIST ENTERTAINER & COMIC AL RADIOLOGY T-SCORE WRIST (LEFT) EXTERNAL RADIOLOGY T-SCORE WRIST (RIGHT) EXTERNAL RADIOLOGY T-SCORE SPINE ENTERTAINER & COMIC AL RADIOLOGY Anatomical Region Laterality Modality Other Cathy Olivera MD DIAGNOSTIC IMAGING ORDERABLES Final Result from Last 3 Months or Most Recently Relevant to Health Maintenance Insurance [facility] Address: [id number] [place] [address] Advance Directives For more information, please contact: [phone] Documents on File Type Date Recorded Patient Argon Tester Expl anation Advance Directive POA 07/03/2011 7:06 AM Advance Directive POA 07/03/2011 7:04 AM * Full Code (Latest Code Status on File) Date Activated Date Inactivated Comments 07/03/2011 7:25 AM 07/03/2011 4:50 PM Care Teams Semiconductor Processing Group Leader Relationship Specialty Start Date End Date Ambrocio Nascimento MD [address] [place] [address] PCP - General Internal Medicine 10/15/16
--- OUTSIDE RECORDS SUMMARY | 2025-06-12 14:03 | XMS_ITS | Encounter Summary ---
Author Organization [facility] Address [address] [place], [place] [address] [address] Care Team Providers Care Manager Branch Name Role Phone Ambrocio Nascimento MD Primary Care Provider [phone] Encounter Details Date Type Department Care Team (Late st Contact Info) Description 08/25/2019 Lab Requisition [facility] DermPath Lab [address] [place] [phone] Patrick Carmichael MD PROFESSIONAL [place], [place] [id number] Social History Tobacco Use Types Packs/Day Years Used Date Smoking Tobacco: Never Assessed Comments Unknown Sex and Gender Information Value Date Recorded Sex Assigned at Not on file Legal Sex Female 4:44 AM SPINNER CONTINUOUS Gender Identity Not on file Sexual Orientation Not on file documented as of this encounter Plan of Treatment Not on file documented as of this encounter Procedures Procedure Name Priority Date/Time Associated Diagnosis Comments DERMATOPATHOLOGY Routine 08/24/2019 12:0 0 AM CDT documented in this encounter Results * DERMATOPATHOLOGY (08/24/2019 12:00 AM CDT) Case Report Dermatopathology Report Case: [id number] Authorizing Provider: Patrick Carmichael MD Collected: 08/24/2019 12:00 AM Ordering Location: [facility] DermPath Lab Received: 08/25/2019 10:56 AM Pathologist: Shital Grande MD Specimens: A) - Skin, left central lower cheek B) - Skin, right lateral upper back 10/10/201 9 4:29 PM CDT DERMATOPATHOLOGY LABORATORY Final Diagnosis Specimen A. SKIN, left central lower cheek: ACTINIC KERATOSIS, ERODED (L57.0) (see microscopic description) Specimen B. SKIN, right lateral upper back: SEBORRHEIC KERATOSIS, IRRITATED AND INFLAMED (L82.0) 4:29 PM T DERMATOPATHOLOGY LABORATORY at 1629 CDT Clinical History A: R/O SCC, BCC, ISK, scar, HAK. B: R/O BCC, SCC, ISK. 4:29 PM CDT DERMATOPATHOLOGY LABORATORY Gross Description Specimen A: Received is one formalin filled container labeled with the patient's name and designated left central lower cheek. The specimen consists of a punch biopsy measuring [id number]. Jar 0. Specimen B: Received is one formalin filled container labeled with the patients name and designated right lateral upper back. The specimen consists of a shave removal measuring [id number], bisected. Jar 0+. 4:29 PM CDT DERMATOPATHOLOGY LABORATORY Microscopic Description Specimen A. SKIN, left central lower cheek: There is alternating orthokeratosis and parakeratosis. The epidermis is focally eroded. Along the undersurface of the epidermis, there are buds of atypical keratinocytes in a disorderly arrangement. Additional deeper sections were obtained and reviewed. Specimen B. SKIN, right lateral upper back: Sections show acanthosis, papillomatosis, hyperkeratosis, and squamous eddies. There is a lymphohistiocytic infiltrate within the papillary dermis. 4:29 PM CDT DERMATOPATHOLOGY LABORATORY Disclaimer An external and internal positive and negative controls are appropriate for the histochemical, immunohistochemical and immunofluorescence stain(s) in this case (if any), except where stated explicitly. The performance characteristics of the stain(s) cited in this report were developed and its performance characteristic determined by the Dermatopathology Laboratory at [facility], directed by Dr. Bhavna Grande. These tests need not be, and therefore are not, approved by the [place] Food and Drug Administration. The tests are used for clinical purposes. Billing Codes Specimen Charges Stain Charges 59887 07239 1 1 10/10/201 9 4:29 PM CDT DERMATOPATHOLOGY LABORATORY Embedded Images 9 4:29 PM CDT DERMATOPATHOLOGY LABORATORY Pathology/Cytology TISSUE SPECIMEN FROM SKIN / Unknown 08/24/2019 08/25/2019 10:56 AM CDT Miscellaneous samples (specimen) TISSUE SPECIMEN FROM SKIN / Unknown 08/24/2019 08/25/2019 10:56 AM CDT Patrick Carmichael MD LAB - PATHOLOGY/CYTOLOGY ORD ERABLES Final Result DERMATOPATHOLOGY LABORATORY [facility] - Department of Dermatology [address] [place] [address], 5th Floor Lab [address] [phone] documented in this encounter Visit Diagnoses Not on filedocumented in this encounter Care Teams Manager Branch Relationship Specialty Start Date End Date Ambrocio Nascimento MD PCP - General 03/30/18 documented as of this encounter
--- OUTSIDE RECORDS SUMMARY | 2025-06-12 14:03 | XMS_ITS | Clinical Summary ---
Author Organization [facility] Address [address] [place] [address] Care Team Providers Care Help Desk Team Leader Name Role Phone Unavailable Primary Care Provider Unavailabl e Social History Tobacco Use Types Packs/Day Years Used Date Smoking Tobacco: Never Assessed Comments Unknown Sex and Gender Information Value Date Recorded Sex Assigned at Not on file Legal Sex Female 7:56 PM CDT Gender Identity Not on file Sexual Orientation Not on file Plan of Treatment Health Maintenance Due Date Last Done Comments DTaP, Tdap and Td Vaccines ( 1 - Tdap) 1959 Pneumococcal Vaccine: 50+ Ye ars (1 of 1 - PCV) 1990 Zoster Vaccines (1 of 2) 1990 Dexa Scan (General) 2005 RSV Immunization or 60+ Years (1 - 1-dose 75+ series) 2015 COVID-19 Vaccine (2023-2 5 season) 2024 Meningococcal B Vaccine Aged Out No l onger eligible based on patient's age to complete this topic Meningococcal Vaccine Aged Out No destiny arturo eligible based on patient's age to complete this topic RSV Immunizations Under 20 Months Aged Out No longer eligible based on patient's age to complete this topic
--- OUTSIDE RECORDS SUMMARY | 2025-06-12 14:52 | XMS_ITS | Clinical Summary ---
Author Organization [facility] Address [address] [place] [address] Phone Care Team Providers Care Service Porter Name Role Phone Ambrocio Nascimento MD Primary [...] (10/24/2021): Added automatically from request for surgery [id number] Liver function tests abnormal 08/26/2018 Overview (10/24/2021): Added automatically from request for surgery [id number] Cholangiectasis 07/29/2018 Cyst of uterine adnexa 07/29/2018 [...] T1b,N0 Stage 1; left T1C,N0 stage 1. Er/HI +her2- June 2011 Dr Jarod Potter History of malignant neoplasm of digestive organ 10/18/2009 Overview (10/24/2021): [place] B1 rectal cancer,s/p rt,chemo and surgery, 1988.with [...] on file Legal Sex Female 10:54 AM [facility] Gender Identity Not on file Sexual Orientation [...] 2025 Insurance [employer] MED[employer]ARE ADVANTAGE Care Teams Service Porter Relationship Specialty Start Date End Date Ambrocio Nascimento MD PCP - General Internal Medicine 10/09/21
--- OUTSIDE RECORDS SUMMARY | 2025-06-12 14:52 | XMS_ITS | Encounter Summary ---
Author Organization [facility] Address [address] [place], [place] [address] [address] Care Team Providers Care Potato Chip Maker Name Role Phone Ambrocio Nascimento MD Primary Care Provider [phone] Encounter Details Date Type Department Care Team (Late st Contact Info) Description 08/25/2019 Lab Requisition [facility] DermPath Lab [address] [place] [phone] Patrick Carmichael MD PROFESSIONAL [place], [place] [id number] Social History Tobacco Use Types Packs/Day Years Used Date Smoking Tobacco: Never Assessed Comments Unknown Sex and Gender Information Value Date Recorded Sex Assigned at Not on file Legal Sex Female 4:44 AM REDUCING SYSTEM OPERATOR Gender Identity Not on file Sexual Orientation Not on file documented as of this encounter Plan of Treatment Not on file documented as of this encounter Procedures Procedure Name Priority Date/Time Associated Diagnosis Comments DERMATOPATHOLOGY Routine 08/24/2019 12:0 0 AM CDT documented in this encounter Results * DERMATOPATHOLOGY (08/24/2019 12:00 AM CDT) Case Report Dermatopathology Report Case: [id number] Authorizing Provider: Patrick Carmichael MD Collected: 08/24/2019 12:00 AM Ordering Location: [facility] DermPath Lab Received: 08/25/2019 10:56 AM [...] specimen consists of a punch biopsy measuring [id number]. Jar 0. Specimen B: Received is one formalin filled container labeled with the patients name and designated right lateral upper back. The specimen consists of a shave removal measuring [id number], bisected. Jar 0+. 4:29 PM CDT DERMATOPATHOLOGY [...] characteristic determined by the Dermatopathology Laboratory at [facility], directed by Dr. Bhavna Grande. These tests need not be, and therefore are not, approved by the [place] Food and Drug Administration. The tests are used for clinical purposes. Billing Codes Specimen Charges Stain Charges 18640 13335 1 1 10/10/201 9 4:29 PM CDT DERMATOPATHOLOGY LABORATORY Embedded Images 9 4:29 PM CDT DERMATOPATHOLOGY LABORATORY Pathology/Cytology TISSUE SPECIMEN FROM SKIN / Unknown 08/24/2019 08/25/2019 10:56 AM CDT Miscellaneous samples (specimen) TISSUE SPECIMEN FROM SKIN / Unknown 08/24/2019 08/25/2019 10:56 AM CDT Patrick Carmichael MD LAB - PATHOLOGY/CYTOLOGY ORD ERABLES Final Result DERMATOPATHOLOGY LABORATORY [facility] - Department of Dermatology [address] [place] [address], 5th Floor Lab [address] [phone] documented in this encounter Visit Diagnoses Not on filedocumented in this encounter Care Teams Potato Chip Maker Relationship Specialty Start Date End Date Ambrocio Nascimento MD PCP - General 03/30/18 documented as of this encounter
--- OUTSIDE RECORDS SUMMARY | 2025-06-12 14:52 | XMS_ITS | Referral Summary ---
Author Organization [place] [id number] [facility] Address [address] [place] [address] Care Team Providers Care Flight Crew Ordnanceman Name Role Phone Ambrocio Nascimento MD Primary Care Provider [phone] Encounters Date Type Department Care Team Description 05/26/2025 Results Follow-Up [facility] [address] [place] [address] [address] [place] [address] Jesica Aleman NP US Vein Duplex Lower Extremity Bilateral Complete, Basic metabolic panel 05/25/2025 1:00 PM CDT Ancillary Procedure [facility] Vascular Lab at the [address] [place] [address] [place] [address] Bilateral edema of lower extremity; Right leg pain 05/25/2025 10:45 AM CDT Office Visit [facility] [address] [place] [address] [address] [place] [address] Jesica Aleman NP Bilateral edema of lower extremity (Primary Dx); Right leg pain; Elevated serum creatinine; Primary hypertension 04/06/2025 Results Follow-Up [facility] [address] [place] [address] [address] [place] [address] Ambrocio Nascimento MD Basic metabolic panel 04/05/2025 Telephone [facility] [address] [place] [address] [address] [place] [address] Ambrocio Nascimento MD 03/28/2025 Telephone [facility] [address] [facility] [address] [facility] 1 [place] [address] Ambrocio Nascimento MD Foot Swelling [...] 01/21/2022 Assessment & Plan (01/21/2022 11:36 AM COMMISSIONED POLICE OFFICER): Add spironolactone 25mg daily for a week [...] x2. Assessment & Plan (11/27/2020 11:19 AM COMMISSIONED POLICE OFFICER): Doing much better now. Cultures it had [...] extensive disease, will treat for 6-8 weeks TEACHER'S ASSISTANT 2g every day, 02/01- 03/15, at least. [...] time. Assessment & Plan (01/21/2020 10:45 AM COMMISSIONED POLICE OFFICER): 5 weeks of debilitating, somewhat progressive pain associated with NO overt neurological symptoms. ESR/CRP elevated. Though patient reports some urinary incontinence, symptoms are not consistent with BUS OR TRUCK GARAGE MECHANIC-source of incontinence symptoms (especially given lack of [...] await results -- Patient already referred to [facility] radiology to perform biopsy; please send [...] (07/12/2019): Added automatically from request for surgery [id number] LFTs abnormal 08/26/2018 Overview (08/26/2018): Added automatically from request for surgery [id number] Adnexal cyst 07/29/2018 Overview (07/29/2018): -CT (2005) [...] 10/11/2013 Assessment & Plan (11/27/2020 11:18 AM COMMISSIONED POLICE OFFICER): Now with edema. Etiology is unclear. Certainly gabapentin could be playing a role with this. Will check CMP and urinalysis at this time Resolved Problems Problem Noted Date Diagnosed Date Resolved Date Breast cancer 10/11/2013 07/29/2018 Overview (07/29/2018): Overview: Right T1b,N0 Stage 1; left T1C,N0 stage 1. 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 Not on file Not on file [...] on file Medical Devices Implanted Type Area Recruitment And Outreach Assistant Device Identifier Shelf Expiration Date Model / Serial / Lot Hips Bilateral : Hip [employer] 6574 Edwards Flexi-Stent 7fr 7cm Small Pigtail Flexible .035in Stent - [id number] Implanted:Qty: 1 on 09/02/2018 by Gilbert Redding MD at [facility] N/A: Bile Duct [employer] 08/16/2023 [id number] / / [id number] Explanted Type Area Recruitment And Outreach Assistant Device Identifier Shelf Expiration Date Model / Serial / Lot [employer] Theodore 180-222 Contour 6fr 24cm Large Inner Lumen Low Profile Bladder [employer] Free - [id number] Implanted:Qty: 1 on 08/10/2019 by Garth Tyler MD at [facility] Explanted:Qty: 1 on 09/20/2019 by Garth Tyler MD Left: Ureter [employer] 04/25/2022 180-222 / / [id number] Procedures Procedure Name Priority Date/Time Associated Diagnosis [...] PM CDT Narrative 05/25/2025 5:44 PM CDT [employer] [facility] - Department of Vascular Surgery, Vascular Laboratory [address] [place] [address] Lower Extremity Venous Ultrasound Report Patient Name: [...] M79.604 Pain in right leg. FINDINGS: Performing Executive Vp: Erasmo Colon RVT. Bilateral: Venous Doppler signals [...] Procedure Note Winston Bryan MD - 05/25/2025 [facility] - Department of Vascular Surgery,Vascular Laboratory [address] [place] [address] Lower Extremity Venous Ultrasound Report Patient Name: JHONNY TRAMMELL : 1940 (84y 7m) Study Date: 05/25/2025 12:33:14 PM Gender: F Tech: TT Location: [facility] Ref Provider: JESICA ALEMAN Quality: Adequate Order [...] M79.604 Pain in right leg. FINDINGS: Performing Executive Vp: Erasmo Colon RVT. Bilateral: Venous Doppler signals [...] 05/25/2025 4:28:38 PM CDT us Jesica Aleman TORPEDOMAN'S MATE IMG US PROCEDURES Final Resul t * [...] ORDERABLES Final Re sult JOSEFINA SUGGS [address] [address], [facility] * (ABNORMAL) Basic metabolic panel (04/05/2025 12:38 [...] BLOOD ORDERABLES Final Re sult [facility] [address] [place] [address] from Last 3 Months Insurance AET[employer] MEDICARE GOLD AETNA MEDICARE GOLD AETNA MEDICARE GOLD AETNA MEDICARE GOLD AETNA MEDICARE GOLD Advance Directives For more information, please contact: [phone] * Full Code (Latest Code Status on File) Date Activated Date Inactivated Comments 02/02/2020 8:18 AM 02/02/2020 1:21 PM * Full Code Date Activated Date Inactivated Comments 01/27/2020 1:23 PM 01/27/2020 6:58 PM * Full Code Date Activated Date Inactivated Comments 09/02/2018 8:38 AM 09/02/2018 3:47 PM Care Teams Flight Crew Ordnanceman Relationship Specialty Start Date End Date Ambrocio Nascimento MD PCP - General 06/20/15
--- OUTSIDE RECORDS SUMMARY | 2025-06-12 14:52 | XMS_ITS | Encounter Summary ---
Author Organization [facility] Address [address] [facility] [place] [address] Care Team Providers Care Sustainability Manager Name Role Phone Ambrocio Nascimento MD Primary Care Provider [phone] Encounter Details Date Type Department Care Team (Late st Contact Info) Description 01/27/2025 Lab Requisition [facility] - DermPath Lab [address] [facility], [place] [address] Christina Rasmussen DO [address] [facility] 3 [place] [address] Social History Tobacco Use Types Packs/Day Years Used Date Smoking Tobacco: Never Assessed Comments Unknown Sex and Gender Information Value Date Recorded Sex Assigned at Not on file Legal Sex Female 4:44 AM CLARIFIER OPERATOR HELPER Gender Identity Not on file Sexual Orientation Not on file documented as of this encounter Plan of Treatment Not on file documented as of this encounter Procedures Procedure Name Priority Date/Time Associated Diagnosis Comments DERMATOPATHOLOGY Routine 01/27/2025 1:33 PM CDT documented in this encounter Results * DERMATOPATHOLOGY (01/27/2025 1:33 PM CDT) Case Report Dermatopathology Report Case: [id number] Authorizing Provider: Christina Rasmussen DO Collected: 01/27/2025 01:33 PM Ordering Location: [facility] - Received: 01/31/2025 09:01 AM DermPath [...] characteristic determined by the Dermatopathology Laboratory at [facility], directed by Dr. Bhavna Grande. These tests need not be, and therefore are not, approved by the [place] Food and Drug Administration. The tests are used for clinical purposes. Billing Codes Specimen Charges Stain Charges 65813 1 2:16 PM CDT DERMATOPATHOLOGY LABORATORY Embedded Images 2:16 PM CDT DERMATOPATHOLOGY LABORATORY Pathology/Cytolo gy TISSUE SPECIMEN FROM SKIN / Unknown 01/27/2025 1:33 PM CDT 01/31/2025 9:01 AM CDT us Christina Rasmussen DO LAB - PATHOLOGY/CYTOLOGY ORDERABLES Final Result DERMATOPATHOLOGY LABORATORY [facility] - Department of Dermatology [address], [address] [phone] documented in this encounter Visit Diagnoses Not on filedocumented in this encounter Care Teams Sustainability Manager Relationship Specialty Start Date End Date Ambrocio Nascimento MD PCP - General 03/30/18 documented as of this encounter
--- OUTSIDE RECORDS SUMMARY | 2025-06-12 14:52 | XMS_ITS | Encounter Summary ---
Author Organization [facility] Address [address] [facility] [place] [address] Care Team Providers Care Job Press Feeder Name Role Phone Ambrocio Nascimento MD Primary Care Provider [phone] Encounter Details Date Type Department Care Team (Late st Contact Info) Description 07/14/2024 Lab Requisition [facility] - DermPath Lab [address] [facility], [place] [address] Christina Rasmussen DO [address] [facility] [address] [place] [address] Social History Tobacco Use Types Packs/Day Years Used Date Smoking Tobacco: Never Assessed Comments Unknown Sex and Gender Information Value Date Recorded Sex Assigned at Not on file Legal Sex Female 4:44 AM DRY ROOM OPERATOR Gender Identity Not on file Sexual Orientation Not on file documented as of this encounter Plan of Treatment Not on file documented as of this encounter Procedures Procedure Name Priority Date/Time Associated Diagnosis Comments DERMATOPATHOLOGY Routine 07/14/2024 9:19 AM CDT documented in this encounter Results * DERMATOPATHOLOGY (07/14/2024 9:19 AM CDT) Case Report Dermatopathology Report Case: [id number] Authorizing Provider: Christina Rasmussen DO Collected: 07/14/2024 09:19 AM Ordering Location: [facility] - Received: 07/14/2024 05:31 PM DermPath Lab [...] characteristic determined by the Dermatopathology Laboratory at [facility], directed by Dr. Bhavna Grande. These tests need not be, and therefore are not, approved by the [place] Food and Drug Administration. The tests are used for clinical purposes. Billing Codes Specimen Charges Stain Charges 14316 1 4 2:06 PM CDT DERMATOPATHOLOGY LABORATORY Embedded Images 4 2:06 PM CDT DERMATOPATHOLOGY LABORATORY Pathology/Cytolo gy TISSUE SPECIMEN FROM SKIN / Unknown 07/14/2024 9:19 AM CDT 07/14/2024 5:31 PM CDT us Christina Rasmussen DO LAB - PATHOLOGY/CYTOLOGY ORDERABLES Final Result DERMATOPATHOLOGY LABORATORY [facility] - Department of Dermatology [address] [phone] documented in this encounter Visit Diagnoses Not on filedocumented in this encounter Care Teams Job Press Feeder Relationship Specialty Start Date End Date Ambrocio Nascimento MD PCP - General 03/30/18 documented as of this encounter
--- OUTSIDE RECORDS SUMMARY | 2025-06-12 14:52 | XMS_ITS | Continuity of Care Document ---
Author Organization [facility] Address [address] [place] [address] [address] [place] [address] Phone Care Team Providers Care Pharmacologist Name Role Phone Nicholas OD, [facility] Unavailable Unavailable Advance Directives Directive Yes / No Effective Date File Name No Information Encounters Encounter Description Practice Location Reason(s) For Visit Diagnoses Date Provider Providers Copied on Encounter [facility], [address] [place] [address] [address], [place], [place], [id number], [place] tel:[phone] [facility] No Information 1-200 6 Nicholas OD [facility]. [address] , [address], [place], [address], [place]. tel:[phone] Family History Family Member Type Diagnosis Age At Onset No Information Payers Payer name Insurance type Covered democrat ID Authoriza tion(s) [employer] Mdcr Adv CI [id number] Social History Type Description Quantity Date Captured [...]
--- OUTSIDE RECORDS SUMMARY | 2025-06-12 14:52 | XMS_ITS | Clinical Summary ---
Author Organization [facility] Address [address] [facility] [place] [address] Care Team Providers Care Bush And Vine Fruit Crop Farmer Name Role Phone Ambrocio Nascimento MD Primary Care Provider [phone] Source Comments [facility],non-owned Affiliates and Associated Physician Practices is amultiple site organization consisting of ambulatory clinics and hospital sitesin [place], [place], [place] and [place]. This disclosure is being madepursuant to the Care Everywhere program and may not contain all information available regarding this patient. 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
--- OUTSIDE RECORDS SUMMARY | 2025-06-12 14:52 | XMS_ITS | Clinical Summary ---
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 Er/[place] +her2- June 2011 Dr Jarod Potter History of rectal or anal cancer 10/18/2009 Overview (10/18/2009): [place] B1 rectal cancer,s/p rt,chemo and surgery, 1988.with [...] Data STL ABSTRACTION Provider, Abstract 03/23/2025 Telephone [facility] [address] [place] [address] Cathy Olivera MD impetigo from [...] on file Legal Sex Female 5:42 AM ADMINISTRATIVE LIAISON Gender Identity Not on file Sexual Orientation Not on file Occupation Industry Job Start Date Job End Date Not on file Not on file Not on file Not on file Last Filed Vital Signs Vital Sign Reading Time Taken Comments Blood Pressure 146/64 01/20/2025 10:[address] Olivera aware-pt takes BP meds at night Pulse 68 01/20/2025 10:10 AM ADMINISTRATIVE LIAISON Temperature 36.9 C (98.5 F) 01/20/2025 10:10 AM ADMINISTRATIVE LIAISON Respiratory Rate 16 01/20/2025 10:1 0 AM ADMINISTRATIVE LIAISON Oxygen Saturation 98% 01/20/2025 10: 10 AM ADMINISTRATIVE LIAISON Inhaled Oxygen Concentration - - Weight 68 kg (150 lb) 08/13/2022 10:23 AM CDT Height 175.3 cm (5' 9) 01/20/2025 10:1 0 AM ADMINISTRATIVE LIAISON Body Mass Index 22.15 08/13/2022 10:23 AM [...] 1 OR MORE SITES (07/05/2022) T-SCORE FEMUR SANDWICH HAND AL RADIOLOGY T-SCORE FEMUR (LEFT) EXTERNAL RADIOLOGY T-SCORE FEMUR (RIGHT) EXTERNAL RADIOLOGY T-SCORE FEMUR NECK EXTERNAL RADIOLOGY T-SCORE FEMORAL NECK (LEFT) EXTERNAL RADIOLOGY T-SCORE FEMORAL NECK (RIGHT) EXTERNAL RADIOLOGY T-SCORE HEEL EXTERNA L RADIOLOGY T-SCORE HEEL (LEFT) EXTERNAL RADIOLOGY T-SCORE HEEL (RIGHT) EXTERNAL RADIOLOGY T-SCORE HIP EXTERNAL RADIOLOGY T-SCORE HIP (LEFT) EXTERNAL RADIOLOGY T-SCORE HIP (RIGHT) EXTERNAL RADIOLOGY T-SCORE WRIST [place]ICH HAND AL RADIOLOGY T-SCORE WRIST (LEFT) EXTERNAL RADIOLOGY T-SCORE WRIST (RIGHT) EXTERNAL RADIOLOGY T-SCORE SPINE SANDWICH HAND AL RADIOLOGY Anatomical Region Laterality Modality Other Cathy Olivera MD DIAGNOSTIC IMAGING ORDERABLES Final Result from Last 3 Months or Most Recently Relevant to Health Maintenance [facility] [employer] Advance Directives For more information, please contact: [phone] Documents on File Type Date Recorded Patient Radio Mechanic Expl anation Advance Directive POA 07/03/2011 7:06 AM Advance Directive POA 07/03/2011 7:04 AM * Full Code (Latest Code Status on File) Date Activated Date Inactivated Comments 07/03/2011 7:25 AM 07/03/2011 4:50 PM Care Teams Mastercam Programmer Relationship Specialty Start Date End Date Ambrocio Nascimento MD [address] [place] [address] PCP - General Internal Medicine 10/15/16
--- OUTSIDE RECORDS SUMMARY | 2025-06-12 14:52 | XMS_ITS | Clinical Summary ---
Author Organization [facility] Address [address] [place] [address] Care Team Providers Care Boat Painter Name Role Phone Unavailable Primary Care Provider [...]
--- OUTSIDE RECORDS SUMMARY | 2025-06-12 14:52 | XMS_ITS | Encounter Summary ---
Author Organization [facility] Address [address] [place] [address] [place] [address] Care Team Providers Care Contracting Analyst Name Role Phone Ambrocio Nascimento MD Primary Care Provider [phone] Encounter Details Date Type Department Care Team (Late st Contact Info) Description 11/08/2020 Lab Requisition [facility] DermPath Lab [address] [place] [address] [place] [address] Social History Tobacco Use Types Packs/Day Years Used Date Smoking Tobacco: Never Assessed Comments Unknown Sex and Gender Information Value Date Recorded Sex Assigned at Not on file Legal Sex Female 4:44 AM DOUGHMAKER Gender Identity Not on file Sexual Orientation Not on file documented as of this encounter Plan of Treatment Not on file documented as of this encounter Procedures Procedure Name Priority Date/Time Associated Diagnosis Comments DERMATOPATHOLOGY Routine 11/07/2020 12:0 0 AM DOUGHMAKER documented in this encounter Results * DERMATOPATHOLOGY (11/07/2020 12:00 AM DOUGHMAKER) Case Report Dermatopathology Report Case: [id number] Authorizing Provider: Patrick Carmichael MD Collected: 11/07/2020 12:00 AM Ordering Location: [facility] DermPath Lab Received: 11/08/2020 09:51 AM Pathologist: Aretha Bocanegra MD Specimen: Skin, left cheek 0 1:21 PM DOUGHMAKER DERMATOPATHOLOGY LABORATORY Final Diagnosis Specimen A. 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 0 1:21 PM [facility] DERMATOPATHOLOGY LABORATORY Gross Description Specimen A: Received is one formalin filled container labeled with the patient's name and designated left cheek. The specimen consists of a punch biopsy measuring [id number]. Jar 0. 0 1:21 PM [facility] DERMATOPATHOLOGY LABORATORY Microscopic Description Specimen A. SKIN, [...] were obtained and reviewed. 0 1:21 PM [facility] DERMATOPATHOLOGY LABORATORY Disclaimer An external and internal positive and negative controls are appropriate for the histochemical, immunohistochemical and immunofluorescence stain(s) in this case (if any), except where stated explicitly. The performance characteristics of the stain(s) cited in this report were developed and its performance characteristic determined by the Dermatopathology Laboratory at [facility], directed by Dr. Bhavna Grande. These tests need not be, and therefore are not, approved by the [place] Food and Drug Administration. The tests are used for clinical purposes. Billing Codes Specimen Charges Stain Charges 15082 1 0 1:21 PM [facility] DERMATOPATHOLOGY LABORATORY Embedded Images 0 1:21 PM [facility] DERMATOPATHOLOGY LABORATORY Pathology/Cytolog y TISSUE SPECIMEN FROM SKIN / Unknown 11/07/2020 11/08/2020 9:51 AM [facility] Patrick Carmichael MD LAB - PATHOLOGY/CYTOLOGY ORD ERABLES Final Result DERMATOPATHOLOGY LABORATORY [facility] - Department of Dermatology [facility] [address] [place] [address], [address] [phone] documented in this encounter Visit Diagnoses Not on filedocumented in this encounter Care Teams Contracting Analyst Relationship Specialty Start Date End Date Ambrocio Nascimento MD PCP - General 03/30/18 documented as of this encounter
--- OUTSIDE RECORDS SUMMARY | 2025-06-12 14:52 | XMS_ITS | Encounter Summary ---
Author Organization [facility] Address [address] [place] [address] [place] [address] Care Team Providers Care Parts Sales Representative Name Role Phone Ambrocio Nascimento MD Primary Care Provider [phone] Encounter Details Date Type Department Care Team (Late st Contact Info) Description 06/10/2018 Lab Requisition [facility] DermPath Lab [address] [facility] [place] [id number] [place] [address] Social History Tobacco Use Types Packs/Day Years Used Date Smoking Tobacco: Never Assessed Comments Unknown Sex and Gender Information Value Date Recorded Sex Assigned at Not on file Legal Sex Female 4:44 AM FORGING ENGINEER Gender Identity Not on file Sexual Orientation Not on file documented as of this encounter Plan of Treatment Not on file documented as of this encounter Procedures Procedure Name Priority Date/Time Associated Diagnosis Comments DERMATOPATHOLOGY Routine 06/09/2018 12:0 0 AM CDT documented in this encounter Results * DERMATOPATHOLOGY (06/09/2018 12:00 AM CDT) Case Report Dermatopathology Report Case: [id number] Authorizing Provider: Patrick Carmichael MD Collected: 06/09/2018 [...] specimen consists of a shave biopsy measuring [id number]. Jar 0. Specimen B: Received is one formalin filled container labeled with the patient's name and designated right cheek. The specimen consists of a shave biopsy measuring [id number]. Jar 0. 5:11 PM [facility] DERMATOPATHOLOGY LABORATORY Microscopic Description Specimen A. SKIN, [...] characteristic determined by the Dermatopathology Laboratory at [facility]. These tests need not be, and therefore are not, approved by the [place] Food and Drug Administration. The tests are used for clinical purposes. Billing Codes Specimen Charges Stain Charges 12194 00994 1 1 8 5:11 PM CDT DERMATOPATHOLOGY LABORATORY Embedded Images 5:11 PM CDT DERMATOPATHOLOGY LABORATORY Pathology/Cytology TISSUE SPECIMEN FROM SKIN / Unknown 06/09/2018 06/10/2018 12:05 PM CDT Miscellaneous samples (specimen) TISSUE SPECIMEN FROM SKIN / Unknown 06/09/2018 06/10/2018 12:05 PM CDT us Patrick Carmichael MD LAB - PATHOLOGY/CYTOLOGY ORD ERABLES Final Result DERMATOPATHOLOGY LABORATORY [facility] - Department of Dermatology [address] [place] [address], [address]th [place] [address], [facility] [phone] documented in this encounter Visit Diagnoses Not on filedocumented in this encounter Care Teams Parts Sales Representative Relationship Specialty Start Date End Date Ambrocio Nascimento MD PCP - General 03/30/18 documented as of this encounter
--- OUTSIDE RECORDS SUMMARY | 2025-06-12 14:52 | XMS_ITS | Encounter Summary ---
Author Organization [facility] Address [address] [place] [address] [place] [address] Care Team Providers Care Cathead Operator Name Role Phone Ambrocio Nascimento MD Primary Care Provider [phone] Encounter Details Date Type Department Care Team (Late st Contact Info) Description 03/22/2020 Lab Requisition [facility] Derm[facility] Lab [address] [place] [phone] Patrick [place] [address] Social History Tobacco Use Types Packs/Day Years Used Date Smoking Tobacco: Never Assessed Comments Unknown Sex and Gender Information Value Date Recorded Sex Assigned at Not on file Legal Sex Female 4:44 AM ADMISSIONS OFFICER Gender Identity Not on file Sexual Orientation Not on file documented as of this encounter Plan of Treatment Not on file documented as of this encounter Procedures Procedure Name Priority Date/Time Associated Diagnosis Comments DERMATOPATHOLOGY Routine 03/21/2020 12:0 0 AM CDT documented in this encounter Results * DERMATOPATHOLOGY (03/21/2020 12:00 AM CDT) Case Report Dermatopathology Report Case: [id number] Authorizing Provider: Patrick Carmichael MD Collected: 03/21/2020 12:00 AM Ordering Location: [facility] Received: 03/22/2020 12:33 PM Pathologist: [...] specimen consists of a punch biopsy measuring [id number], bisected. Jar 0. 0 2:20 PM CDT [...] characteristic determined by the Dermatopathology Laboratory at [facility], directed by Dr. Bhavna Grande. These tests need not be, and therefore are not, approved by the [place] Food and Drug Administration. The tests are used for clinical purposes. Billing Codes Specimen Charges Stain Charges 19551 1 0 2:20 PM CDT DERMATOPATHOLOGY LABORATORY Embedded Images 0 2:20 PM CDT DERMATOPATHOLOGY LABORATORY Pathology/Cytolog y TISSUE SPECIMEN FROM SKIN / Unknown 03/21/2020 03/22/2020 12:33 PM CDT us Patrick Carmichael MD LAB - PATHOLOGY/CYTOLOGY ORD ERABLES Final Result DERMATOPATHOLOGY LABORATORY [facility] - Department of Dermatology [address] [place] [address], 5th [place] [address], [facility] [phone] documented in this encounter Visit Diagnoses Not on filedocumented in this encounter Care Teams Cathead Operator Relationship Specialty Start Date End Date Ambrocio Nascimento MD PCP - General 03/30/18 documented as of this encounter
--- OUTSIDE RECORDS SUMMARY | 2025-06-12 14:52 | XMS_ITS | Encounter Summary ---
Author Organization [facility] Address [address] [place] [address] [place] [address] Care Team Providers Care Acid Pumper Name Role Phone Ambrocio Nascimento MD Primary Care Provider [phone] Encounter Details Date Type Department Care Team (Late st Contact Info) Description 01/14/2019 Lab Requisition [facility] DermPath Lab [address] [facility] [place] [phone] Patrick Carmichael MD PROFESSIONAL [place], [place] [id number] Social History Tobacco Use Types Packs/Day Years Used Date Smoking Tobacco: Never Assessed Comments Unknown Sex and Gender Information Value Date Recorded Sex Assigned at Not on file Legal Sex Female 4:44 AM REGISTERED NURSE HH CASE MANAGER Gender Identity Not on file Sexual Orientation Not on file documented as of this encounter Plan of Treatment Not on file documented as of this encounter Procedures Procedure Name Priority Date/Time Associated Diagnosis Comments DERMATOPATHOLOGY Routine 01/13/2019 12:0 0 AM REGISTERED NURSE HH CASE MANAGER documented in this encounter Results * DERMATOPATHOLOGY (01/13/2019 12:00 AM REGISTERED NURSE HH CASE MANAGER) Case Report Dermatopathology Report Case: [id number] Authorizing Provider: Patrick Carmichael MD Collected: 01/13/2019 12:00 AM Pathologist: Linda Ko MD Received: 01/14/2019 01:26 PM Specimens: A) - Skin, below left earlobe B) - Skin, left mid lower cheek 3:28 PM REGISTERED NURSE HH CASE MANAGER DERMATOPATHOLOGY LABORATORY Final Diagnosis Specimen A. SKIN, below left earlobe: BASAL CELL CARCINOMA, SUPERFICIAL MULTIFOCAL (C44.219) Specimen B. SKIN, left mid lower cheek: HYPERPLASTIC (HYPERTROPHIC) ACTINIC KERATOSIS (L57.0) (see microscopic description) 3:28 PM [facility] DERMATOPATHOLOGY LABORATORY at 1528 REGISTERED NURSE HH CASE MANAGER Clinical History A-B: R/O SCC, Davalos's. 3:28 PM [facility] DERMATOPATHOLOGY LABORATORY Gross Description Specimen A: Received is one formalin filled container labeled with the patient's name and designated below left earlobe. The specimen consists of a shave biopsy measuring [id number]. Jar 0. Specimen B: Received is one formalin filled container labeled with the patient's name and designated left mid lower cheek. The specimen consists of a shave biopsy measuring 7c6x1cs. Jar 0. 3:28 PM [facility] DERMATOPATHOLOGY LABORATORY Microscopic Description Specimen A. [...] minimal dermis present for evaluation. 3:28 PM [facility] DERMATOPATHOLOGY LABORATORY Disclaimer An external and internal positive and negative controls are appropriate for the histochemical, immunohistochemical and immunofluorescence stain(s) in this case (if any), except where stated explicitly. The performance characteristics of the stain(s) cited in this report were developed and its performance characteristic determined by the Dermatopathology Laboratory at [facility], directed by Dr. Bhavna Grande. These tests need not be, and therefore are not, approved by the [place] Food and Drug Administration. The tests are used for clinical purposes. Billing Codes Specimen Charges Stain Charges 49883 74230 1 1 3:28 PM [facility] DERMATOPATHOLOGY LABORATORY Embedded Images 3:28 PM [facility] DERMATOPATHOLOGY LABORATORY Pathology/Cytology TISSUE SPECIMEN FROM SKIN / Unknown 01/13/2019 01/14/2019 1:26 PM REGISTERED NURSE HH CASE MANAGER Miscellaneous samples (specimen) TISSUE SPECIMEN FROM SKIN / Unknown 01/13/2019 01/14/2019 1:26 PM REGISTERED NURSE HH CASE MANAGER Patrick Carmichael MD LAB - PATHOLOGY/CYTOLOGY ORD ERABLES Final Result DERMATOPATHOLOGY LABORATORY [facility] - Department of Dermatology [address] [place] [address] [address] Lab [address] [phone] documented in this encounter Visit Diagnoses Not on filedocumented in this encounter Care Teams Acid Pumper Relationship Specialty Start Date End Date Ambrocio Nascimento MD PCP - General 03/30/18 documented as of this encounter
--- OUTSIDE RECORDS SUMMARY | 2025-06-12 14:52 | XMS_ITS | Encounter Summary ---
Author Organization [facility] Address [address] [place] [address] [place] [address] Care Team Providers Care Jailer/Training Officer Name Role Phone Ambrocio Nascimento MD Primary Care Provider [phone] Encounter Details Date Type Department Care Team (Late st Contact Info) Description 09/20/[address] [facility] [address] [facility] [place] [phone] Patrick Carmichael [place] [address] Social History Tobacco Use Types Packs/Day Years Used Date Smoking Tobacco: Never Assessed Comments Unknown Sex and Gender Information Value Date Recorded Sex Assigned at Not on file Legal Sex Female 4:44 AM PEOPLE GREETER Gender Identity Not on file Sexual Orientation Not on file documented as of this encounter Plan of Treatment Not on file documented as of this encounter Procedures Procedure Name Priority Date/Time Associated Diagnosis Comments DERMATOPATHOLOGY Routine 09/19/2021 12:0 0 AM CDT documented in this encounter Results * DERMATOPATHOLOGY (09/19/2021 12:00 AM CDT) Case Report Dermatopathology Report Case: [id number] Authorizing Provider: Patrick Carmichael MD Collected: 09/19/2021 12:00 AM Ordering Location: [facility] Received: 09/20/2021 01:01 PM Pathologist: Shital Grande MD Specimen: Skin, medial lateral clavicle 1:21 PM [facility] DERMATOPATHOLOGY LABORATORY Final Diagnosis Specimen A. 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 1:21 PM [facility] DERMATOPATHOLOGY LABORATORY Gross Description Specimen A: Received is one formalin filled container labeled with the patient's name and designated medial lateral clavicle. The specimen consists of a shave biopsy measuring 2u0g7cc. Jar 0. 1:21 PM [facility] DERMATOPATHOLOGY LABORATORY Microscopic Description Specimen A. SKIN, medial lateral clavicle: Sections show non-specific changes, including solar elastosis and vascular ectasia. There is no evidence of epithelial dysplasia or malignancy in multiple deeper sections examined. 1:21 PM [facility] DERMATOPATHOLOGY LABORATORY Disclaimer An external and internal positive and negative controls are appropriate for the histochemical, immunohistochemical and immunofluorescence stain(s) in this case (if any), except where stated explicitly. The performance characteristics of the stain(s) cited in this report were developed and its performance characteristic determined by the Dermatopathology Laboratory at [facility], directed by Dr. Bhavna Grande. These tests need not be, and therefore are not, approved by the [place] Food and Drug Administration. The tests are used for clinical purposes. Billing Codes Specimen Charges Stain Charges 42840 1 1:21 PM [facility] DERMATOPATHOLOGY LABORATORY Embedded Images 1:21 PM [facility] DERMATOPATHOLOGY LABORATORY Pathology/Cytolog y TISSUE SPECIMEN FROM SKIN / Unknown 09/19/2021 09/20/2021 1:01 PM CDT Patrick Carmichael MD LAB - PATHOLOGY/CYTOLOGY ORD ERABLES Final Result DERMATOPATHOLOGY LABORATORY [facility] - Department of Dermatology [address], [address] [phone] documented in this encounter Visit Diagnoses Not on filedocumented in this encounter Care Teams Jailer/Training Officer Relationship Specialty Start Date End Date Ambrocio Nascimento MD PCP - General 03/30/18 documented as of this encounter
--- OUTSIDE RECORDS SUMMARY | 2025-06-12 14:52 | XMS_ITS ---
Author Organization [place] [id number] [facility] Address [address] [place] [address] Care Team Providers Care Public Events Facilities Rental Manager Name Role Phone Ambrocio Nascimento MD Primary Care Provider [phone] Active Problems Problem Noted Date Diagnosed Date Localized edema 01/21/2022 Assessment & Plan (01/21/2022 11:36 AM JACK OF ALL TRADES): Add spironolactone 25mg daily for a week [...] x2. Assessment & Plan (11/27/2020 11:19 AM JACK OF ALL TRADES): Doing much better now. Cultures it had [...] extensive disease, will treat for 6-8 weeks DATABASE MANAGEMENT SPECIALIST 2g every day, 02/01- 03/15, at least. [...] time. Assessment & Plan (01/21/2020 10:45 AM JACK OF ALL TRADES): 5 weeks of debilitating, somewhat progressive pain associated with NO overt neurological symptoms. ESR/CRP elevated. Though patient reports some urinary incontinence, symptoms are not consistent with TRIP FOLLOWER-source of incontinence symptoms (especially given lack of [...] await results -- Patient already referred to [facility] radiology to perform biopsy; please send fungal, [...] (07/12/2019): Added automatically from request for surgery [id number] LFTs abnormal 08/26/2018 Overview (08/26/2018): Added automatically from request for surgery [id number] Adnexal cyst 07/29/2018 Overview (07/29/2018): -CT (2005) [...] 10/11/2013 Assessment & Plan (11/27/2020 11:18 AM JACK OF ALL TRADES): Now with edema. Etiology is unclear. Certainly [...] T1b,N0 Stage 1; left T1C,N0 stage 1. 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
--- OUTSIDE RECORDS SUMMARY | 2025-06-12 14:52 | XMS_ITS | Clinical Summary ---
Author Organization [address] Address [address] [place] [address] Care Team Providers Care Client Development Consultant Name Role Phone Ambrocio Nascimento MD Primary Care Provider [phone] Allergies Active Allergy Reactions Criticality Noted Date [...] 01/21/2022 Assessment & Plan (01/21/2022 11:36 AM POURER BUGGY LADLE): Add spironolactone 25mg daily for a week [...] x2. Assessment & Plan (11/27/2020 11:19 AM POURER BUGGY LADLE): Doing much better now. Cultures it had [...] extensive disease, will treat for 6-8 weeks DIGITAL MEDIA STRATEGIST 2g every day, 02/01- 03/15, at least. [...] time. Assessment & Plan (01/21/2020 10:45 AM POURER BUGGY LADLE): 5 weeks of debilitating, somewhat progressive pain associated with NO overt neurological symptoms. ESR/CRP elevated. Though patient reports some urinary incontinence, symptoms are not consistent with PLANT PULLER-source of incontinence symptoms (especially given lack of [...] await results -- Patient already referred to [facility] radiology to perform biopsy; please send fungal, [...] (07/12/2019): Added automatically from request for surgery [id number] LFTs abnormal 08/26/2018 Overview (08/26/2018): Added automatically from request for surgery [id number] Adnexal cyst 07/29/2018 Overview (07/29/2018): -CT (2005) [...] 10/11/2013 Assessment & Plan (11/27/2020 11:18 AM POURER BUGGY LADLE): Now with edema. Etiology is unclear. Certainly gabapentin could be playing a role with this. Will check CMP and urinalysis at this time Resolved Problems Problem Noted Date Diagnosed Date Resolved Date Breast cancer 10/11/2013 07/29/2018 Overview (07/29/2018): Overview: Right T1b,N0 Stage 1; left T1C,N0 stage 1. 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 Overview (07/29/2018): Overview: ,large cell lymphoma,CHOP,R x 6 Encounters Date Type Department Care Team Description 05/26/2025 Results Follow-Up [facility] [address] [place] [address] [address] [place] [address] Jesica Aleman NP US Vein Duplex Lower Extremity Bilateral Complete, Basic metabolic panel 05/25/2025 1:00 PM CDT Ancillary Procedure [facility] Lab at [facility] [address] [place] [address] Advanced [facility] 8th [place] [address] [place] [address] Bilateral edema of lower extremity; Right leg pain 05/25/2025 10:45 AM CDT Office Visit [facility] [address] [place] [address] [address] [place] [address] Jesica Aleman NP Bilateral edema of lower extremity (Primary Dx); Right leg pain; Elevated serum creatinine; Primary hypertension 04/06/2025 Results Follow-Up [facility] [address] [place] [address] [address] [place] [address] Ambrocio Nascimento MD Basic metabolic panel 04/05/2025 Telephone [facility] [address] [place] [address] [address] [place] [address] Ambrocio Nascimento MD 03/28/2025 Telephone [facility] [address] [facility] [place] [address] [facility] [address] [place] [address] Ambrocio Nascimento MD Foot Swelling [...] of rectal or anal cancer 10/18/2009 Overview: [place] B1 rectal cancer,s/p rt,chemo and surgery, 1988.with no recurrence Large cell lymphoma of pelvi c region ([facility]) 10/18/2009 Overview: ,large cell lymphoma,CHOP,R x 6 Breast cancer ([facility]) 10/11/2013 Overview: Ri ght T1b,N0 Stage 1; left T1C,N0 stage 1. 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 Not on file Not on file [...] Completed 01/22/2023 Medical Devices Implanted Type Area Mixed Crop And Livestock Farmer Device Identifier Shelf Expiration Date Model / Serial / Lot Hips Bilateral : Hip [employer] 6574 Edwards Flexi-Stent 7fr 7cm Small Pigtail Flexible .035in Stent - [id number] Implanted:Qty: 1 on 09/02/2018 by Gilbert Redding MD at [facility] N/A: Bile Duct [employer] 08/16/2023 6574 / / [id number] Explanted Type Area Mixed Crop And Livestock Farmer Device Identifier Shelf Expiration Date Model / Serial / Lot [employer] Theodore 180-222 Contour 6fr 24cm Large Inner Lumen Low Profile Bladder [employer] T[employer] Latex Free - [id number] Implanted:Qty: 1 on 08/10/2019 by Garth Tyler MD at [facility] Explanted:Qty: 1 on 09/20/2019 by Garth Tyler MD Left: Ureter [employer] Theodore 04/25/2022 180-222 / / [id number] Procedures Procedure Name Priority Date/Time Associated Diagnosis [...] - Department of Vascular Surgery, Vascular Laboratory [address] [place] [address] Lower Extremity Venous Ultrasound Report Patient Name: JHONNY TRAMMELL : 1940 (84y 7m) Study Date: 05/25/2025 12:33:14 PM Gender: F Tech: TT [facility] Provider: JESICA ALEMAN Quality: Adequate Order [...] M79.604 Pain in right leg. FINDINGS: Performing Counter Professional: Erasmo Colon RVT. Bilateral: Venous Doppler signals [...] Procedure Note Winston Bryan MD - 05/25/2025 [facility] - Department of Vascular Surgery,Vascular Laboratory [address] [place] [address] Lower Extremity Venous Ultrasound Report Patient Name: JHONNY TRAMMELL : 1940 (84y 7m) Study Date: 05/25/2025 12:33:14 PM Gender: F Tech: Location: [facility] Provider: JESICA ALEMAN Quality: Adequate Order Provider: [...] M79.604 Pain in right leg. FINDINGS: Performing Counter Professional: Erasmo Colon RVT. Bilateral: Venous Doppler signals [...] 05/25/2025 4:28:38 PM CDT us Jesica Aleman TAR HEATER OPERATOR IMG US PROCEDURES Final Resul t * [...] 05/25/2025 11:39 AM CDT us Jesica Aleman TAR HEATER OPERATOR LAB BLOOD ORDERABLES Final Re sult Performing Organization Address City/[facility]/ZIP Co de Phone Number JOSEFINA LYNCHDA [address] [address] * (ABNORMAL) Basic metabolic panel (04/05/2025 12:38 PM CDT) Pathologist [facility] Glucose 85 65 - 99 mg/dL [facility] [...] BLOOD ORDERABLES Final Re sult [facility] [address] [place] [address] from Last 3 Months Insurance [employer] MEDICARE GOLD AETNA MEDICARE GOLD AETNA MEDICARE GOLD AETNA MEDICARE GOLD AETNA MEDICARE GOLD Advance Directives For more information, please contact: [phone] * Full Code (Latest Code Status on File) Date Activated Date Inactivated Comments 02/02/2020 8:18 AM 02/02/2020 1:21 PM * Full Code Date Activated Date Inactivated Comments 01/27/2020 1:23 PM 01/27/2020 6:58 PM * Full Code Date Activated Date Inactivated Comments 09/02/2018 8:38 AM 09/02/2018 3:47 PM Care Teams Client Development Consultant Relationship Specialty Start Date End Date Ambrocio Nascimento MD PCP - General 06/20/15
[2025-06-12 14:56] LABS: Hematocrit 33.1 % (37.0-47.0); Hemoglobin 10.5 g/dL (12.0-15.0); Immature Granulocyte Percent A 0.3 % (0-0.5); Lymphocytes Absolute Auto 0.86 K/mm3 (0.9-3.2); Mean Corpuscular HGB Conc 31.7 g/dl (32-36); Mean Corpuscular Hemoglobin 29.2 pg (26-34); Mean Corpuscular Volume 92.2 fl (80-100); Nucleated Red Blood Cells Absolute Auto 0.000 K/mm3 (0.0-0.012); Nucleated Red Blood Cells Perc 0.0 % (0.0-0.2); Platelet Count Result 200 k/mm3 (150-375); Red Blood Count 3.59 M/mm3 (4.2-5.4); White Blood Count 3.1 K/mm3 (4.5-10.0)
[2025-06-12 15:07] LABS: INR 1.0; Prothrombin Time 13.6 Seconds (11.1-14.7)
[2025-06-12 15:08] LABS: Partial Thromboplastin Time 30.4 Seconds (22.3-36.8)
[2025-06-12 15:16] LABS: Alanine Aminotransferase 21 U/L (6-35); Albumin Level 3.9 g/dL (3.5-5.1); Alkaline Phosphatase 116 U/L (38-126); Anion Gap 7 mmol/L (4-12); Aspartate Amino Transferase 41 U/L (14-36); Bilirubin,Total 0.6 mg/dL (0.2-1.3); Blood Urea Nitrogen 22 mg/dL (7-17); Calcium 9.4 mg/dL (8.4-10.2); Carbon Dioxide 24 mmol/L (22-30); Chloride 109 mmol/L (98-107); Estimated CRCL calculation 31 ml/min; Estimated Glomerular Filt Rate 45; Glucose 89 mg/dL (65-110); Potassium 3.3 mmol/L (3.4-5.0); Sodium 140 mmol/L (137-145); Total Protein 7.2 g/dL (6.3-8.2)
[2025-06-12 15:22] LABS: NT Pro B Type Natriuretic Pept 2180 pg/mL (19.9-100); Troponin I 0.025 ng/mL (0.000-0.034)
--- NOTE | 2025-06-12 16:07 | ED.SOB ---
HPI - SOB/Dyspnea General Chief Complaint: Shortness of Breath/Dyspnea Stated Complaint: SOB Time Seen by Provider: 06/12/25 14:30 Source: patient Mode of arrival: ambulatory Limitations: no limitations History of Present Illness HPI Narrative: Patient presents with shortness of breath that started last night. She is experiencing pleuritic left sided chest pain that radiates to her back. Describes it as a tightness. Breathing makes it worse. Pain is constant. No palliating factors. Patient went to urgent care first. She is on HCTZ both for HTN and for slight diuretic properties. No cough, fevers, chills. This has never happened before. No underlying respiratory/cardiac issues. No history heart failure. Has not seen a theatre arts professor. Cardiac risk factors HTN: Yes HLD:0 DM:0 Obese:0 Smoker:0 Personal history ID/TIA/CVA: 0 Fam Hx ID in first degree relative <65yo: Yes (though daughter had comorbidities) Related Data Home Medications ?Medication ?Instructions ?Recorded ?Confirmed ?Last Taken ?Type multivitamin (Daily Multi-Vitamin 1 tablet PO DAILY 04/03/20 06/12/25 07/12/22 History tablet) ascorbic acid (vitamin C) 500 mg 500 mg PO QAM 07/19/20 06/12/25 07/12/22 History tablet (Vitamin C) cholecalciferol (vitamin D3) 50 50 mcg PO QAM 07/19/20 06/12/25 07/12/22 History mcg (2,000 unit) capsule (Vitamin D3) hydrocodone 5 mg-acetaminophen 325 1 tablet PO Q6-8H PRN Pain 07/19/20 06/12/25 07/15/22 22:00 History mg tablet gabapentin 300 mg capsule 900 mg PO HS 08/09/20 06/12/25 07/15/22 22:00 History cinnamon bark 500 mg capsule 1,000 mg PO QAM 04/25/21 06/12/25 07/12/22 History (Cinnamon) vitamin E mixed 400 unit capsule 400 unit PO QAM 04/25/21 06/12/25 07/12/22 History aspirin 81 mg tablet,delayed 81 mg PO QAM 06/27/22 06/12/25 07/09/22 History release calcium 600 mg capsule 1,200 mg PO QAM 06/27/22 06/12/25 07/12/22 History cranberry extract 200 mg capsule 4,200 mg PO DAILY 06/27/22 06/12/25 07/12/22 History garlic 500 mg capsule 500 mg PO DAILY 06/27/22 06/12/25 07/12/22 History magnesium 200 mg tablet 400 mg PO DAILY 06/27/22 06/12/25 07/12/22 History amlodipine 5 mg tablet 5 mg PO QPM 06/12/25 06/12/25 Unknown History hydrochlorothiazide 25 mg tablet 25 mg PO DAILY 06/12/25 06/12/25 Unknown History Allergies Allergy/AdvReac Type Severity Reaction Status Date / Time gluten Allergy Mild Diarrhea & Verified 04/05/25 13:44 STOMACH UPSET levofloxacin AdvReac Diarrhea Verified 04/05/25 13:44 PMFSH Past Medical History Medical History HTN (hypertension), benign History of skin cancer History of non-Hodgkin's lymphoma Primary osteoarthritis of right knee History of kidney cancer History of treatment for malignancy Discitis (~2019) Breast cancer Colon cancer History of vaginal delivery x 4 Surgical History Surgical History (Updated 06/12/25 @ 19:23 by Arianna Hamilton MD) S/P shoulder surgery History of total right knee replacement (~11/06/21) Conformis History of meniscectomy of right knee (~02/02/14) Arthroscopic Partial Medial & Lateral History of total left hip arthroplasty (~09/12/04) History of total right hip arthroplasty (~03/12/06) Status post reverse arthroplasty of shoulder 05/08/[address] whitney, Rt Shoulder History of nephrectomy Right History of bladder surgery Family History Family History Sibling Patient's brother is Sibling Acute myocardial infarction Daughter Acute myocardial infarction, Onset Age: 55 COPD (chronic obstructive pulmonary disease) Smoker Social History Social History Social History: The patient lives with her . He is the durable power insurance defense attorney for healthcare. The patient is stating that she would like to be a DNR. The patient has 4 children. 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 Smoking status: Never smoker Second hand tobacco smoke exposure: No Additional smoking assessment comments: PT DENIES ALL FORMS OF TOBACCO USE Alcohol intake: never Substance use: never Substance use type: does not use Do You Feel Safe in your Home?: Yes Lack of Transportation: No Lack of Food: Never True Current Housing: I Have Housing Concerned About Future Housing: No Difficulty Paying Gas/Electric Bills: No Difficulty Paying for Meds: No Currently Unemployed: No Education: High School Diploma/GED Difficulty w/ Childcare or Family Care: No Living arrangements: with family Additional living arrangements comments: [facility] Gender identity (if verbalized by the patient): Female Spiritual care concerns: No Exam Narrative: GENERAL: Well-appearing, well-nourished, and in no acute distress. HEAD: Normocephalic, atraumatic. EYES: Non injected, non icteric ENT: Nares clear, no rhinorrhea or epistaxis. Gross auditory acuity intact. NECK: Supple. No meningismus. CHEST: Speaking in full sentences. No respiratory distress. HEART: Regular rate and rhythm. . ABDOMEN: Soft, nondistended. No rigidity or guarding. Not peritoneal EXTREMITIES: Normal range of motion. 1+ right lower extremity edema, trace left lower extremity edema. SKIN: Warm, dry, no rash. NEURO: No focal deficits. Alert and oriented. Answering questions. Following commands. Normal speech without aphasia or dysarthria. PSYCH: Normal mood and affect. Course Vital Signs Vital signs: Vital Signs Temperature 98.2 F 06/12/25 14:07 Pulse Rate 58 L 06/12/25 14:07 Respiratory Rate 18 06/12/25 14:07 Blood Pressure 163/60 H 06/12/25 14:07 Pulse Oximetry 99 06/12/25 14:07 Oxygen Delivery Room Air 06/12/25 14:07 Temperature 98.1 F 06/12/25 23:58 Pulse Rate 92 06/13/25 00:00 Respiratory Rate 18 06/12/25 23:58 Blood Pressure 133/62 06/12/25 23:58 Pulse Oximetry 96 06/12/25 23:58 Oxygen Delivery Room Air 06/12/25 23:50 MDM - SOB/Dyspnea MDM Narrative Medical decision making narrative: Patient presents iwth pleuritic chest pain and shortness of breath since last night. Pain radiates to her back. In the emergency department she is afebrile vital signs notable for hypertension and mild bradycardia. Dimer elevated greater than 1. Will proceed with CT PE imaging. Discussed with radiology nurse on protocol to use to also best capture views to evaluate for aortic dissection (will be obtaining abd/pelvis imaging as well for this reason) HEART SCORE History 2 highly suspicious 1 moderately suspicious 0 slightly suspicious History score [address] depression/elevation not due to LBBB, LVH, or digoxin [address] depression but LBBB, LVH, nonspecific repolarization changes 0 normal ECG score 0 Age 2 >/= 65 1 45-64 0 <45 Age score 2 Risk factors (HTN, hypercholesterolemia, DM, obesity with BMI >30, current smoker or cessation </=3mo), positive fam hx with parent or sibling with CVD before age 65, atherosclerotic disease (prior ID, PCI/CABG, CVA/TIA, or peripheral arterial disease) 2 >/= 3 risk factors or history of atherosclerotic dz 1 - 1-2 risk factors 0 no known risk factors Risk factor score 1 Initial Troponin 2 >3 times normal limit 1 1-3 times normal limit 0 less than or equal to normal limit Troponin score 1 Total HEART Score 5 Leukopenia. Normocytic anemia. Mild hypokalemia, repletion ordered. Kidney function consistent with baseline CKD. Repeat troponin remains within normal limits/stable but will proceed with 6 hour. She has evidence of a UTI. No prior Urine culture to guide therapy. Ceftriaxone ordered. Patient has an elevated BNP with no prior for comparison concern for acute heart failure especially combined with cardiomegaly and pleural effusion. Small dose Lasix ordered. No recent echo. Discuss code status with patient and she confirms that in the event of cardiopulmonary arrest she would want to be do not resuscitate. Discussed patient for admission with on-call hospitalist Dr Raza who accepts admission to the ICU. Differential Diagnosis Differential diagnosis: Likely acute exacerbation of chronic obstructive airways disease, congestive heart failure, community acquired pneumonia, pulmonary embolism and other (pleural effusion; aortic dissection/aneurysm) Lab Data Attestation: I reviewed the patient's lab results. 06/12/25 14:49 06/12/25 14:49 Labs: Lab Results 06/12/25 06/12/25 06/12/25 Range/Units 14:49 18:32 18:40 WBC 3.1 L (4.5-10.0) K/mm3 RBC 3.59 L (4.2-5.4) M/mm3 Hgb 10.5 L (12.0-15.0) g/dL Hct 33.1 L (37.0-47.0) % MCV 92.2 (80-100) fl MCH 29.2 (26-34) pg MCHC 31.7 L (32-36) g/dl RDW 14.6 H (11.5-14.5) % Plt Count 200 (150-375) k/mm3 MPV 9.0 (7.4-10.4) fl Immature Gran % (Auto) 0.3 (0-0.5) % Neut % (Auto) 52.7 (45.5-73.1) % Lymph % (Auto) 27.5 (18.3-44.2) % [place] % (Auto) 13.7 H (2.6-8.5) % Eos % (Auto) 4.8 H (0-4.4) % Baso % (Auto) 1.0 (0.2-1.2) % Lymph # (Auto) 0.86 L (0.9-3.2) K/mm3 [place] # (Auto) 0.4 (0.1-0.6) K/mm3 Eos # (Auto) 0.2 (0-0.3) K/mm3 Baso # (Auto) 0.0 (0.0-0.1) K/mm3 Abs Immat Gran (auto) 0.01 (0.00-0.031) K/mm3 Absolute Neuts (auto) 1.7 (1.3-6.7) K/mm3 Absolute Nucleated RBC 0.000 (0.0-0.012) K/mm3 Nucleated RBC % 0.0 (0.0-0.2) % PT 13.6 (11.1-14.7) Seconds INR 1.0 APTT 30.4 (22.3-36.8) Seconds D-Dimer 1.33 H (<0.48) ug/mL Sodium 140 (137-145) mmol/L Potassium 3.3 L (3.4-5.0) mmol/L Chloride 109 H (98-107) mmol/L Carbon Dioxide 24 (22-30) mmol/L Anion Gap 7 (4-12) mmol/L BUN 22 H (7-17) mg/dL Creatinine 1.14 H (0.7-1.0) mg/dL Estim Creat Clear Calc 31 ml/min Estimated GFR 45 L (59 - ) Glucose 89 (65-110) mg/dL Calcium 9.4 (8.4-10.2) mg/dL Magnesium 1.7 (1.6-2.3) mg/dL Total Bilirubin 0.6 (0.2-1.3) mg/dL AST 41 H (14-36) U/L ALT 21 (6-35) U/L Alkaline Phosphatase 116 (38-126) U/L Troponin I 0.025 0.025 (0.000-0.034) ng/mL NT-Pro-B Natriuret Pep 2180 H (19.9-100) pg/mL Total Protein 7.2 (6.3-8.2) g/dL Albumin 3.9 (3.5-5.1) g/dL Urine Color Yellow (Yellow) Urine Appearance Cloudy H (Clear) Urine pH 5.0 (5.0-9.0) Ur Specific [place] 1.031 (1.001-1.035) Urine Protein Negative (Negative) mg/dL Urine Glucose (UA) Negative (Negative) mg/dL Urine Ketones Negative (Negative) mg/dL Ur Blood (Man) 1+ H (Negative) Urine Nitrate Negative (Negative) Urine Bilirubin Negative (Negative) Urine Urobilinogen 0.2 (<2.0) mg/dL Add Ur Microanalysis Reviewed Leukocyte Esterase Rfl 3+ H (Negative) YESENIA/UL Urine RBC 0-2 (0-2) /hpf Urine WBC >100 H (0-3) /hpf Ur Squamous Epith Cells Few (Few) /hpf Urine Bacteria 4+ H /hpf Urine Casts 0-2 Imaging Data Radiologist's impression: Impressions Chest X-Ray 06/12/25 15:42 IMPRESSION: Subsegmental left basilar atelectasis/consolidation. Small bilateral pleural effusions versus chronic pleural blunting. Progressive multilevel vertebral body compression deformities and thoracic kyphosis since 2018. Chest/Abdomen/Pelvis CTA 06/12/25 17:56 IMPRESSION: Mild ascending thoracic aortic ectasia. No dissection. Cardiomegaly. Dependent subsegmental atelectasis/consolidation in the lower lobes. Small left pleural effusion. Examination of the abdomen is limited by motion artifact. 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 1.2 cm pancreatic cyst, slight interval growth since 2018, consider follow-up in one year if the patient is a surgical candidate. Status post right nephrectomy. Cortical atrophy and scarring in the remaining left kidney. Mild left hydronephrosis. The hydronephrosis may be related to adnexal mass that determination is difficult given the degree of motion artifact and metal artifact. 9.1 cm cystic right adnexal mass, poorly evaluated due to artifact from hip arthroplasty hardware. ECG Data EKG #1: Attestation: I personally reviewed and interpreted this ECG as follows: ECG completion date: 06/12/25 ECG completion time: 14:05 Interpretation: Rate 55 beats per minute. There is R to R variation consistent with arrhythmia. P waves are not easily seen so initially thought perhaps slow atrial fibrillation versus junctional but upon close inspection it does appear there are P waves that precede QRS complexes. Left axis deviation (QRS is positive with dominant R wave in Lead I; QRS is negative with dominant S wave in leads II, III, and aVF). Intraventricular conduction delay. No T-wave inversions. Pre populated algorithm suggests acute ID however the are no elevations of ST segment. Discharge Plan Discharge Clinical Impression: Leukopenia, Normocytic anemia, Chest pain, Acute heart failure, Hypokalemia, CKD (chronic kidney disease), UTI (urinary tract infection), Aortic ectasia, thoracic, Shortness of breath, Pleural effusion, left, Pancreatic cyst, Adnexal mass, Pleuritic chest pain Patient Disposition: Still a Patient Condition: Stable Time of Disposition: 19:40
[2025-06-12] MEDS: MORPHINE SULFATE (*CRX) 2 MG/ML INJ IV PUSH (16:35)
[2025-06-12 16:51] LABS: Magnesium 1.7 mg/dL (1.6-2.3)
[2025-06-12] MEDS: POTASSIUM BICARBONATE 25 MEQ TABEF PO (17:29)
[2025-06-12 18:58] LABS: Add Urine Microscopic? YES; Appearance Urine Cloudy (Clear); Glucose Urine UA Negative (Negative); Leukocyte Esterase Ur 3+ LEU/UL (Negative); Need Manual Microscopic Reviewed; Nitrate Urine Negative (Negative); Non Pathogenic Casts 0-2; Specific Grav Ur 1.031 (1.001-1.035)
[2025-06-12 19:04] LABS: Troponin I 0.025 ng/mL (0.000-0.034)
--- NOTE | 2025-06-12 19:34 | PC.NURSE ---
assumed care of pt from DEE Noonan. pt resting on stretcher, c/o cp. pt informed we will be giving medication to help with pain. no other questions at this time
[2025-06-12] MEDS: ASPIRIN 81 MG CHEWABLE TABLET 324 MG PO (20:00)
[2025-06-12] MEDS: NITROGLYCERIN SL 0.4 MG TABLET SUBLINGUAL ×2 (20:01→20:13)
[2025-06-12] MEDS: cefTRIAXone 1 GM in SODIUM CHLORIDE 0.9% IV 50 ML 100 ML IVPB (20:01)
[2025-06-12] MEDS: FUROSEMIDE INJ 40 MG/4 ML VIAL 20 MG IV PUSH (20:01)
--- NOTE | 2025-06-12 20:02 | P.HP_ITS ---
H&P: HPI History of Present Illness Date/Time: 06/12/25 20:02 Chief Complaint: Pleuritic chest pain Narrative: 84-year-old female with DJD status post multiple joint replacements, history of cancer right kidney status post nephrectomy, CKD, bilateral breast cancer, non- Hodgkin lymphoma, colon cancer, neuropathy, sinus bradycardia who presents to [facility] ER on 06/12/2025 with a complaint of pleuritic chest and back pain. She has not had this issue before, denies heart disease, lung disease, smoking. A day prior to admission she felt pain all over her back left side and left chest. It is worse when she is twisting her body and taking a deep breath. She denies cough, sick contacts, recent travel, fever, abdominal pain, nausea or vomiting, diarrhea. Endorses leg swelling which began in March 2025. She is able to lie flat when she is sleeping, she does not think she has gained weight. ER evaluation demonstrates sinus bradycardia, blood pressure 152/70. Saturating well on room air. WBC 3.1, hemoglobin 10.5, INR 1.0, potassium 3.3, BUN 22, serum creatinine 1.14 which is around her baseline, troponin negative x2, proBNP 2180, urinalysis cloudy, 3+ leukocyte esterase, greater than 100 WBC, 4+ bacteria. CTA chest abdomen pelvis with mild descending thoracic aortic ectasia, no dissection, cardiomegaly, dependent subsegmental atelectasis consolidation in the lower lobes, small left pleural effusion, chronic intrahepatic and extrahepatic bile duct dilation, 1.2 cm pancreas axis, status post right nephrectomy, mild left hydronephrosis, 9.1 cm cystic right adnexal mass with limited visualization due to hip hardware. She was given ceftriaxone 1 g, morphine 2 mg IV x1, potassium replacement, Lasix 20 mg IV x1, aspirin 324 mg p.o. x1, nitroglycerin 0.4 mg. Patient reports the pain is persistent, the morphine aspirin and nitroglycerin did not help, however it is only painful when she is taking deep breaths. Review of Systems Review of Systems: All systems reviewed & are unremarkable except as noted in HPI and below (Subjective/HPI) [facility] Past Medical History Medical History (Updated 06/12/25 @ 20:10 by Tessa Raza MD) HTN (hypertension), benign History of skin cancer History of non-Hodgkin's lymphoma Primary osteoarthritis of right knee History of kidney cancer History of treatment for malignancy Discitis (~2019) Breast cancer Colon cancer History of vaginal delivery x 4 Surgical History Surgical History (Updated 06/12/25 @ 19:23 by Arianna Hamilton MD) S/P shoulder surgery History of total right knee replacement (~11/06/21) Conformis History of meniscectomy of right knee (~02/02/14) Arthroscopic Partial Medial & Lateral History of total left hip arthroplasty (~09/12/04) History of total right hip arthroplasty (~03/12/06) Status post reverse arthroplasty of shoulder 05/08/[address] whitney, Rt Shoulder History of nephrectomy Right History of bladder surgery Family History Family History Sibling Patient's brother is Sibling Acute myocardial infarction Social History Social History Social History: The patient lives with her . He is the durable power nurse special for healthcare. The patient is stating that she would like to be a DNR. The patient has 4 children. 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 Smoking status: Never smoker Second hand tobacco smoke exposure: No Additional smoking assessment comments: PT DENIES ALL FORMS OF TOBACCO USE Alcohol intake: never Substance use: never Substance use type: does not use Living arrangements: with family Additional living arrangements comments: [facility] Gender identity (if verbalized by the patient): Female Spiritual care concerns: No Meds Home Medications and Allergies Home Medications ?Medication ?Instructions ?Recorded ?Confirmed ?Type multivitamin (Daily Multi-Vitamin 1 tablet PO DAILY 04/03/20 09/02/22 History tablet) ascorbic acid (vitamin C) 500 mg 500 mg PO QAM 07/19/20 09/02/22 History tablet (Vitamin C) cholecalciferol (vitamin D3) 50 50 mcg PO QAM 07/19/20 09/02/22 History mcg (2,000 unit) capsule (Vitamin D3) hydrocodone 5 mg-acetaminophen 325 1 tablet PO Q6-8H PRN Pain 07/19/20 09/02/22 History mg tablet loperamide 2 mg capsule (Imodium 8 mg PO BID 07/19/20 09/02/22 History A-D) quinapril 10 1 tablet PO QACLUNCH 07/19/20 09/02/22 History mg-hydrochlorothiazide 12.5 mg tablet gabapentin 300 mg capsule 900 mg PO HS 08/09/20 09/02/22 History cinnamon bark 500 mg capsule 1,000 mg PO QAM 04/25/21 09/02/22 History (Cinnamon) vitamin E mixed 400 unit capsule 400 unit PO QAM 04/25/21 09/02/22 History Probiotic 1 cap BID 06/27/22 09/02/22 History aspirin 81 mg tablet,delayed 81 mg PO QAM 06/27/22 09/02/22 History release calcium 600 mg capsule 1,200 mg PO QAM 06/27/22 09/02/22 History cranberry extract 200 mg capsule 4,200 mg PO DAILY 06/27/22 09/02/22 History garlic 500 mg capsule 500 mg PO DAILY 06/27/22 09/02/22 History magnesium 200 mg tablet 400 mg PO DAILY 06/27/22 09/02/22 History aspirin 81 mg tablet,delayed 81 mg PO BID 14 days #28 tabs 07/16/22 09/02/22 Rx release Allergies Allergy/AdvReac Type Severity Reaction Status Date / Time gluten Allergy Mild Diarrhea & Verified 04/05/25 13:44 STOMACH UPSET levofloxacin AdvReac Diarrhea Verified 04/05/25 13:44 Vital Signs Vital Signs - 24 hr 06/12/25 14:07 06/12/25 14:52 06/12/25 15:01 Temperature 98.2 F 97.3 F L Pulse Rate 58 L Respiratory Rate 18 16 Blood Pressure 163/60 H 162/85 H Pulse Oximetry 99 98 Oxygen Delivery Room Air Room Air Room Air 06/12/25 15:02 06/12/25 16:00 06/12/25 17:01 Temperature 97.9 F 97.9 F 97.8 F Pulse Rate 55 L 52 L 49 L Respiratory Rate 18 20 14 Blood Pressure 163/71 H 152/70 H 151/58 H Pulse Oximetry 100 100 100 Oxygen Delivery 06/12/25 17:30 06/12/25 18:19 06/12/25 19:35 Temperature 97.9 F 98.5 F Pulse Rate 52 L 55 L 56 L Respiratory Rate 14 16 14 Blood Pressure 157/71 H 150/65 H 143/60 H Pulse Oximetry 95 96 98 Oxygen Delivery Exam Const: General: comfortable and no acute distress Other: A&O x3 HENMT: Mouth: Yes moist mucous membranes Eyes: Pupils: Equal, round and reactive pupils present Neck: Neck: supple Resp: Effort & Inspection: normal respiratory effort Other: Bibasilar crackles Cardio: Rate: bradycardic Rhythm: regular rhythm Heart sounds: no gallops GI: Inspection: non-distended GI Palp: Yes Soft to palpation : General: Yes bladder normal to palpation Extrem: Other: 1+ pitting edema H&P: Results Labs Labs: Short CBC 06/12/25 Range/Units 14:49 WBC 3.1 L (4.5-10.0) K/mm3 Hgb 10.5 L (12.0-15.0) g/dL Hct 33.1 L (37.0-47.0) % Plt Count 200 (150-375) k/mm3 BMP 06/12/25 14:49 Sodium 140 Potassium 3.3 L Chloride 109 H Carbon Dioxide 24 BUN 22 H Creatinine 1.14 H Glucose 89 Calcium 9.4 Cardiac Enzymes 06/12/25 06/12/25 Range/Units 14:49 18:32 Troponin I 0.025 0.025 (0.000-0.034) ng/mL Liver Function 06/12/25 Range/Units 14:49 Total Bilirubin 0.6 (0.2-1.3) mg/dL AST 41 H (14-36) U/L ALT 21 (6-35) U/L Alkaline Phosphatase 116 (38-126) U/L Albumin 3.9 (3.5-5.1) g/dL Urine 06/12/25 Range/Units 18:40 Urine Color Yellow (Yellow) Urine Appearance Cloudy H (Clear) Urine pH 5.0 (5.0-9.0) Ur Specific [place] 1.031 (1.001-1.035) Urine Protein Negative (Negative) mg/dL Urine Glucose (UA) Negative (Negative) mg/dL Assessment and Plan Assessment and plan (1) Chest pain: Code(s): R07.9 - Chest pain, unspecified Status: Acute (2) CKD (chronic kidney disease): Code(s): N18.9 - Chronic kidney disease, unspecified Status: Acute (3) Hypokalemia: Code(s): E87.6 - Hypokalemia Status: Acute (4) UTI (urinary tract infection): Code(s): N39.0 - Urinary tract infection, site not specified Status: Acute (5) Cardiomegaly: Code(s): I51.7 - Cardiomegaly Status: Acute (6) Pleural effusion, left: Code(s): J90 - Pleural effusion, not elsewhere classified Status: Acute Plan 84-year-old female with DJD status post multiple joint replacements, history of cancer right kidney status post nephrectomy, CKD, bilateral breast cancer, non- Hodgkin lymphoma, colon cancer, neuropathy, sinus bradycardia who presents to [facility] ER on 06/12/2025 with a complaint of pleuritic chest and back pain. She has not had this issue before, denies heart disease, lung disease, smoking. A day prior to admission she felt pain all over her back left side and left chest. It is worse when she is twisting her body and taking a deep breath. She denies cough, sick contacts, recent travel, fever, abdominal pain, nausea or vomiting, diarrhea. Endorses leg swelling which began in March 2025. She is able to lie flat when she is sleeping, she does not think she has gained weight. ER evaluation demonstrates sinus bradycardia, blood pressure 152/70. Saturating well on room air. WBC 3.1, hemoglobin 10.5, INR 1.0, potassium 3.3, BUN 22, serum creatinine 1.14 which is around her baseline, troponin negative x2, proBNP 2180, urinalysis cloudy, 3+ leukocyte esterase, greater than 100 WBC, 4+ bacteria. CTA chest abdomen pelvis with mild descending thoracic aortic ectasia, no dissection, cardiomegaly, dependent subsegmental atelectasis consolidation in the lower lobes, small left pleural effusion, chronic intrahepatic and extrahepatic bile duct dilation, 1.2 cm pancreas axis, status post right nephrectomy, mild left hydronephrosis, 9.1 cm cystic right adnexal mass with limited visualization due to hip hardware. She was given ceftriaxone 1 g, morphine 2 mg IV x1, potassium replacement, Lasix 20 mg IV x1, aspirin 324 mg p.o. x1, nitroglycerin 0.4 mg. Patient reports the pain is persistent, the morphine aspirin and nitroglycerin did not help, however it is only painful when she is taking deep breaths. ----- At this time her pain is noncardiac in description, no evidence of acute coronary syndrome. She will be admitted to the telemetry unit. Will continue to give morphine p.r.n. for pain. Patient is amenable to thoracentesis however shared decision making help, to attempt diuresis 1st. Patient received ceftriaxone. Continue Lasix 20 mg IV b.i.d.. Follow-up urine culture. Evidence of CHF, obtain TTE. Patient wishes to be DNR. Saline lock IV. SCDs. Hospitalist [facility] Advance Care Plan I have confirmed that the patient's Advanced Care Plan is present, code status is documented, or surrogate decision maker is listed in patient medical record.: Yes Medication Reconciliation I have utilized all available resources to obtain, update and review the patients current medications (includes all prescriptions, OTC, herbals, cannabis, and nutritional supplements).: Yes
--- NOTE | 2025-06-12 20:35 | ECG_ITS ---
Test Date: 2025-06-12 20:35:45 Measurements Intervals [place] Rate: 50 P: 264 CA: 136 QRS: -44 QRSD: 125 T: 73 QT: 457 QTc: 417 Interpretive Statements SINUS BRADYCARDIA WITH OCCASIONAL SUPRAVENTRICULAR PREMATURE COMPLEXES LEFT AXIS DEVIATION [QRS AXIS < -30] LEFT VENTRICULAR HYPERTROPHY AND ST-T CHANGE [VOLTAGE CRITERIA PLUS ST/T ABNORMALITY] POSSIBLE SEPTAL MYOCARDIAL INFARCTION , PROBABLY OLD [30 ms Q WAVE IN V1/V2] PROBABLE LATERAL MYOCARDIAL INFARCTION , OF INDETERMINATE AGE [35 ms Q WAVE IN I/aVL/V5/V6] Compared to ECG 06/12/2025 14:05:59 ST (T wave) deviation still present Myocardial infarct finding still present Electronically Signed On 06-13-2025 12:37:21 CDT by Tony Hernandez M.D.
--- NOTE | 2025-06-12 21:34 | ADMGEN ---
This patient, Karen Trammell, was admitted to IMU Room 200-01 at 2130. Patient/family oriented to hospital policies and general routines including ID bracelet, bed and alarms, visiting hours, pain management, procedures, bathroom and other care routines, personal items, smoking policy, room service/diet, and visiting hours. Information on how to activate the Rapid Response Team has been discussed. Patient/Family are encouraged to report perceived risks to care and to ask questions if they do not understand what they are told or what they should do.
[2025-06-12 23:14] LABS: Troponin I 0.034 ng/mL (0.000-0.034)
[2025-06-13] VITALS (15 sets, daily range): BP systolic 138–160; BP diastolic 57–73; PULSE 50–92; RESP 16–18; TEMP 36.7–37; O2SAT 94–99
--- NOTE | 2025-06-13 | ECHO_ITS ---
Patient Info Name: Karen Trammell Age: 84 years : 1940 Gender: Female Ht: 66 in Wt: 150 lbs BSA: 1.79 m2 HR: 53 bpm BP: 144 / 66 mmHg Heart Rhythm: Sinus Rhythm Technical Quality: Fair Exam Date: 06/13/2025 2:23 PM Patient Status: O Admit Date: 06/12/2025 Exam Type: CA echo dop color flow w con Complete two-dimensional, color flow and Doppler transthoracic echocardiogram is performed with contrast to opacify the left ventricle and to improve the deliniation of the left ventricle endocardial borders. Staff Referring Physician: Kathy Whittaker Drop Wire Aligner: Melony Angel Attending Provider: Tessa Raza Contrast/Agitated Saline Contrast/Ag. Saline: Definity Amount: 2.00 ml Administered By: Melony Angel Existing IV Access: Yes IV Access Condition: patent with no signs of infiltration Summary 1. There is normal biventricular size and systolic function. 2. There are no significant valvular abnormalities. 3. There is moderate pulmonary hypertension. 4. There is severe biatrial enlargement. Left Ventricle The left ventricle is normal in size and systolic function. The left ventricular ejection fraction is visually estimated to be 55-60%. There are no regional wall motion abnormalities. Right Ventricle The right ventricle is normal in size and systolic function. Left Atria The left atrium is severely dilated. Right Atria The right atrium is severely dilated. Aortic Valve The aortic valve is trileaflet and sclerotic. There is no aortic stenosis. There is trace aortic regurgitation. Pulmonic Valve The pulmonic valve is not well visualized. There is trace pulmonic valve regurgitation. Mitral Valve The mitral valve leaflets are sclerotic. There is no mitral stenosis. There is podx-[id number] mitral regurgitation. Tricuspid Valve The tricuspid valve leaflets are sclerotic. There is no tricuspid stenosis. There is mild tricuspid regurgitation. Pulmonary Arteries There is moderate pulmonary hypertension. The PASP is estimated to be 57mm Hg. Pericardium/Pleural Pericardium is normal in appearance with no evidence for significant pericardial effusion. Inferior Vena Cava Dilated inferior vena cava with >50% collapse upon inspiration consistent with elevated right atrial pressure, 8 mmHg. Aorta The aortic root at the level of the sinus of Valsalva measures 2.7 cm in diameter. Left Ventricular Outflow Tract Name Value Normal LVOT 2D LVOT Diameter 2.0 cm LVOT Doppler LVOT Peak Velocity 89 cm/s LVOT Peak Gradient 3 mmHg LVOT Mean Gradient 2 mmHg LVOT VTI 19 cm LVOT VTI/AV VTI Ratio 0.6 LVOT Stroke Volume 58 ml LVOT CO 3.3 l/min LVOT CI 1.9 l/min/m2 Pulmonic Valve Name Value Normal PV Doppler PV Peak Velocity 101 cm/s PV Peak Gradient 4 mmHg Mitral Valve Name Value Normal MV Regurgitation Doppler MR Peak Gradient 133 mmHg MV Diastolic Function MV E Peak Velocity 71 cm/s MV A Peak Velocity 43 cm/s MV E/A 1.6 MV Decel Time (PW) 289 ms MV Annular TDI MV E/e' (Septal) 10.0 MV E/e' (Lateral) 7.2 MV E/e' (Average) 8.6 Tricuspid Valve Name Value Normal TV Regurgitation Doppler TR Peak Velocity 350 cm/s TR Peak Gradient 28 mmHg Estimated PAP/RSVP RA Pressure 8 mmHg <=5 PA Systolic Pressure 57 mmHg <36 RV Systolic Pressure 57 mmHg <36 TV Annular TDI TV Lateral Maria C s' Velocity 14.6 cm/s >=9.5 Aortic Valve Name Value Normal AV Doppler AV Peak Velocity 153 cm/s AV Peak Gradient 9 mmHg AV Mean Gradient 4 mmHg AV VTI 33 cm AV Area (Cont Eq VTI) 1.8 cm2 >=3.0 AV Area (Cont Eq Lonnie) 1.8 cm2 AV DI (Lonnie) 0.58 AV Regurgitation 2D LVOT Area 3.0 cm2 Ventricles Name Value Normal LV Dimensions 2D/MM IVS Diastolic Thickness (2D) 1.1 cm 0.6-1.0 LVID Diastole (2D) 3.8 cm 3.8-5.2 LVIW Diastolic Thickness (2D) 1.3 cm 0.6-0.9 LVID Systole (2D) 2.8 cm 2.2-3.5 LVOT Diameter 2.0 cm LV Mass (2D Cubed) 151.52 g 67.00-162.00 LV Mass Index (2D Cubed) 85 g/m2 43-95 Relative Wall Thickness (2D) 0.66 <=0.42 LV Fractional Shortening/Ejection Fraction 2D/MM LV Fractional Shortening (2D) 28 % 27-45 LV EF (2D Teichholz) 55 % LV Diastolic Volume (4C MOD) 66 ml LV EF (4C MOD) 53 % LV Diastolic Volume (2C MOD) 47 ml LV EF (2C MOD) 54 % LV Diastolic Volume (BP MOD) 59 ml 46-106 LV Diastolic Volume Index (BP MOD) 33 ml/m2 29-61 LV Systolic Volume (BP MOD) 27 ml 14-42 LV Systolic Volume Index (BP MOD) 15 ml/m2 8-24 LV EF (BP MOD) 54 % 54-74 LV Diastolic Length (4C) 8.3 cm LV Systolic Length (4C) 6.2 cm LV Stroke Volume (4C MOD) 35 ml Atria Name Value Normal LA Dimensions LA Volume (4C A-L) 132 ml LA Volume (BP A-L) 133 ml RA Dimensions RA Systolic Major [place] Length (4C) 5.9 cm 2.2-2.8 RA Area (4C) 20.4 cm2 <=18.0 Report Signatures
[2025-06-13] MEDS: HYDROcodone/acetaminophen (*CRX) 10-325 MG TABLET 1 TAB PO ×4 (00:24→14:10)
[2025-06-13 04:28] LABS: Hematocrit 33.0 % (37.0-47.0); Hemoglobin 10.4 g/dL (12.0-15.0); Immature Granulocyte Percent A 0.4 % (0-0.5); Lymphocytes Absolute Auto 0.81 K/mm3 (0.9-3.2); Mean Corpuscular HGB Conc 31.5 g/dl (32-36); Mean Corpuscular Hemoglobin 29.1 pg (26-34); Mean Corpuscular Volume 92.4 fl (80-100); Nucleated Red Blood Cells Absolute Auto 0.000 K/mm3 (0.0-0.012); Nucleated Red Blood Cells Perc 0.0 % (0.0-0.2); Platelet Count Result 195 k/mm3 (150-375); Red Blood Count 3.57 M/mm3 (4.2-5.4); White Blood Count 2.7 K/mm3 (4.5-10.0)
[2025-06-13 04:51] LABS: Anion Gap 9 mmol/L (4-12); Blood Urea Nitrogen 20 mg/dL (7-17); Calcium 8.9 mg/dL (8.4-10.2); Carbon Dioxide 26 mmol/L (22-30); Chloride 104 mmol/L (98-107); Estimated CRCL calculation 31 ml/min; Estimated Glomerular Filt Rate 46; Glucose 85 mg/dL (65-110); Magnesium 1.5 mg/dL (1.6-2.3); Potassium 3.0 mmol/L (3.4-5.0); Sodium 139 mmol/L (137-145)
[2025-06-13] MEDS: MORPHINE SULFATE (*CRX) 4 MG/ML INJ 3 MG IV PUSH ×3 (05:11→20:55)
--- NOTE | 2025-06-13 06:00 | ECG_ITS ---
Test Date: 2025-06-13 05:40:02 Measurements Intervals [place] Rate: 49 P: -84 HI: 180 QRS: -35 QRSD: 146 T: 77 QT: 474 QTc: 428 Interpretive Statements SINUS BRADYCARDIA WITH SINUS ARRHYTHMIA MARKED LEFT AXIS DEVIATION [QRS AXIS < -30] LEFT VENTRICULAR HYPERTROPHY AND ST- T CHANGES POSSIBLE SEPTAL MYOCARDIAL INFARCTION, PROBABLY OLD PROBABLE LATERAL MYOCARDIAL INFARCTION [35 ms Q WAVE IN I/aVL/V5/V6], OF INDETERMINATE AGE Compared to ECG 06/12/2025 20:35:45 NO SIGNIFICANT CHANGES Electronically Signed On 06-13-2025 12:42:17 CDT by Tony Hernandez M.D.
[2025-06-13 06:14] LABS: Troponin I 0.039 ng/mL (0.000-0.034)
[2025-06-13] MEDS: POTASSIUM CHLORIDE 20 MEQ ER TABLET 40 MEQ PO (06:44)
[2025-06-13] MEDS: MAGNESIUM SULF 1 GM/D5W 100 ML 1 GM/100 ML BAG IVPB (06:44)
[2025-06-13] MEDS: FUROSEMIDE INJ 40 MG/4 ML VIAL 20 MG IV PUSH ×2 (08:55→17:26)
[2025-06-13 09:40] LABS: Troponin I 0.032 ng/mL (0.000-0.034)
--- NOTE | 2025-06-13 11:23 | P.CONCA_ITS ---
Assessment and Plan Assessment and plan (1) Chest pain: Code(s): R07.9 - Chest pain, unspecified Status: Acute (2) Sinus bradycardia: Code(s): R00.1 - Bradycardia, unspecified Status: Acute (3) HTN (hypertension), benign: Code(s): I10 - Essential (primary) hypertension Status: Chronic Plan Atypical chest pain- sharp and radiating from the back to the left chest, increases with deep breaths, sharp in nature, not associated with any diaphoresis or SOB Elevated troponin x1 at 0.039 (cutoff 0.034), other troponins negative Elevated D-dimer- CT chest is negative for dissection. No PE. Mild coronary calcification. Degenerative disc disease noted Acute diastolic heart failure- elevated NT proBNP; she has been getting IV Lasix; she is euvolemic on exam today Sinus bradycardia-asymptomatic CKD, solitary kidney (history of renal cell cancer status post nephrectomy)- creatinine 1.12 Hypertension Plan: -Chest pain is atypical and increases with deep breaths. No exertional chest pain. Only 1 troponin is very mildly elevated at 0.039, otherwise other troponins are negative. D-dimer is elevated but CT chest does not show any dissection or PE. She had a negative stress test in 2020 and EF was normal at 60%. Obtain TTE to evaluate LVEF, any regional wall motion abnormalities. If LVEF is normal and no wall motion abnormalities, no further cardiac workup indicated at this time. There is degenerative disease of the thoracic and lumbar spine noted on CT. Recommend further evaluation for noncardiac causes of chest pain including any spinal etiology for back pain radiating to left chest. -She is euvolemic by exam today. Renal function is improved. Can recheck BNP to note trend. Can switch Lasix to 20 mg p.o. once a day. -Check and replace electrolytes to keep potassium greater than 4 and magnesium greater than 2. -Monitor renal function. -Check daily weights and ins and outs. -Check TSH and free T4. -Monitor on telemetry. Avoid AV joesph blocking agents including beta ela, calcium channel blockers due to bradycardia. -Continue aspirin 81 mg. -Resume home antihypertensive meds including amlodipine, hydrochlorothiazide at home dose. -Plan discussed with patient and she is agreeable. Cardiology will sign off. Please call us with any questions. History of Present Illness History of Present Illness Consult date/time: 06/13/25 11:23 Reason For Visit: CP/SOB; new heart failure Narrative: 84-year-old female patient with history of hypertension, colon cancer status post surgical resection, chemo and radiation therapy, bilateral breast cancer status post lumpectomy and chemotherapy, non-Hodgkin's lymphoma status post chemotherapy, renal cancer status post nephrectomy, solitary kidney, CKD with baseline creatinine 1.3 presents with chief complaints of back and left-sided chest pain since Friday night. Patient states that she noticed sharp back pain with radiation to the front of her left chest. Pain increases with deep breath. She has been receiving pain medication and states that though it reduces the pain to some extent it has not completely resolved. She states that she has off and on leg swelling which has now improved with IV Lasix. She reports off and on shortness of breath but none at the moment. No chest pain with exertion, dizziness, lightheadedness, palpitations, recent weight gain, orthopnea, PND, presyncope, or syncope. She had a stress test in 2020 which was negative for reversible ischemia. She has a normal ejection fraction of 60% at that time. She never smoked. Workup: Potassium: 3 Creatinine: 1.12 (baseline creatinine 1.3) Troponin: 0.025, 0.034, 0.039, 0.032 D-dimer: 1.33 NT proBNP: 2180 EKG: Sinus bradycardia, LVH and related ST-T changes, possible septal infarct age indeterminate, possible lateral infarct age indeterminate CXR: Subsegmental left basilar atelectasis/consolidation. Small bilateral pleural effusions versus chronic pleural blunting. Progressive multilevel vertebral body compression deformities and thoracic kyphosis since 2018. CT chest, abdomen, pelvis: IMPRESSION: Mild ascending thoracic aortic ectasia. No dissection. Cardiomegaly. Dependent subsegmental atelectasis/consolidation in the lower lobes. Small left pleural effusion. Examination of the abdomen is limited by motion artifact. 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 1.2 cm pancreatic cyst, slight interval growth since 2018, consider follow-up in one year if the patient is a surgical candidate. Status post right nephrectomy. Cortical atrophy and scarring in the remaining left kidney. Mild left hydronephrosis. The hydronephrosis may be related to adnexal mass that determination is difficult given the degree of motion artifact and metal artifact. 9.1 cm cystic right adnexal mass, poorly evaluated due to artifact from hip arthroplasty hardware. Prior cardiac workup: Kaushikiscan in 2020: IMPRESSION: 1. Mild nonreversible perfusion defect at the apical and apical lateral segments on non gated imaging which appears to nearly normalize on the gated stress images, equivocal for small mild infarct versus artifact. No reversible ischemia. 2. Left ventricular ejection fraction measuring 60%. Review of Systems 2 Review of Systems: A complete review of systems was performed and negative other than those mentioned in the HPI. FORMERLY [facility] Past Medical History Medical History HTN (hypertension), benign History of skin cancer History of non-Hodgkin's lymphoma Primary osteoarthritis of right knee History of kidney cancer History of treatment for malignancy Discitis (~2019) Breast cancer Colon cancer History of vaginal delivery x 4 Surgical History Surgical History (Updated 06/12/25 @ 19:23 by Arianna Hamilton MD) S/P shoulder surgery History of total right knee replacement (~11/06/21) Conformis History of meniscectomy of right knee (~02/02/14) Arthroscopic Partial Medial & Lateral History of total left hip arthroplasty (~09/12/04) History of total right hip arthroplasty (~03/12/06) Status post reverse arthroplasty of shoulder 05/08/[address] whitney, Rt Shoulder History of nephrectomy Right History of bladder surgery Family History Family History Sibling Patient's brother is Sibling Acute myocardial infarction Daughter Acute myocardial infarction, Onset Age: 55 COPD (chronic obstructive pulmonary disease) Smoker Social History Social History Social History: The patient lives with her . He is the durable power energy attorney for healthcare. The patient is stating that she would like to be a DNR. The patient has 4 children. 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 Smoking status: Never smoker Second hand tobacco smoke exposure: No Additional smoking assessment comments: PT DENIES ALL FORMS OF TOBACCO USE Alcohol intake: never Substance use: never Substance use type: does not use Do You Feel Safe in your Home?: Yes Lack of Transportation: No Lack of Food: Never True Current Housing: I Have Housing Concerned About Future Housing: No Difficulty Paying Gas/Electric Bills: No Difficulty Paying for Meds: No Currently Unemployed: No Education: High School Diploma/GED Difficulty w/ Childcare or Family Care: No Living arrangements: with family Additional living arrangements comments: [facility] Gender identity (if verbalized by the patient): Female Spiritual care concerns: No Meds Home Medications and Allergies Home Medications ?Medication ?Instructions ?Recorded ?Confirmed ?Type multivitamin (Daily Multi-Vitamin 1 tablet PO DAILY 04/03/20 06/12/25 History tablet) ascorbic acid (vitamin C) 500 mg 500 mg PO QAM 07/19/20 06/12/25 History tablet (Vitamin C) cholecalciferol (vitamin D3) 50 50 mcg PO QAM 07/19/20 06/12/25 History mcg (2,000 unit) capsule (Vitamin D3) hydrocodone 5 mg-acetaminophen 325 1 tablet PO Q6-8H PRN Pain 07/19/20 06/12/25 History mg tablet gabapentin 300 mg capsule 900 mg PO HS 08/09/20 06/12/25 History cinnamon bark 500 mg capsule 1,000 mg PO QAM 04/25/21 06/12/25 History (Cinnamon) vitamin E mixed 400 unit capsule 400 unit PO QAM 04/25/21 06/12/25 History aspirin 81 mg tablet,delayed 81 mg PO QAM 06/27/22 06/12/25 History release calcium 600 mg capsule 1,200 mg PO QAM 06/27/22 06/12/25 History cranberry extract 200 mg capsule 4,200 mg PO DAILY 06/27/22 06/12/25 History garlic 500 mg capsule 500 mg PO DAILY 06/27/22 06/12/25 History magnesium 200 mg tablet 400 mg PO DAILY 06/27/22 06/12/25 History amlodipine 5 mg tablet 5 mg PO QPM 06/12/25 06/12/25 History hydrochlorothiazide 25 mg tablet 25 mg PO DAILY 06/12/25 06/12/25 History loperamide 2 mg capsule (Imodium 8 mg PO Q4H PRN loose stool 06/13/25 06/13/25 History A-D) Allergies Allergy/AdvReac Type Severity Reaction Status Date / Time gluten Allergy Mild Diarrhea & Verified 04/05/25 13:44 STOMACH UPSET levofloxacin AdvReac Diarrhea Verified 04/05/25 13:44 Vital Signs Vital Signs - 24 hr 06/12/25 14:07 06/12/25 14:52 06/12/25 15:01 Temperature 36.8 C 36.3 C L Pulse Rate 58 L Respiratory Rate 18 16 Blood Pressure 163/60 H 162/85 H Pulse Oximetry 99 98 Oxygen Delivery Room Air Room Air Room Air 06/12/25 15:02 06/12/25 16:00 06/12/25 17:01 Temperature 36.6 C 36.6 C 36.6 C Pulse Rate 55 L 52 L 49 L Respiratory Rate 18 20 14 Blood Pressure 163/71 H 152/70 H 151/58 H Pulse Oximetry 100 100 100 Oxygen Delivery 06/12/25 17:30 06/12/25 18:19 06/12/25 19:35 Temperature 36.6 C 36.9 C Pulse Rate 52 L 55 L 56 L Respiratory Rate 14 16 14 Blood Pressure 157/71 H 150/65 H 143/60 H Pulse Oximetry 95 96 98 Oxygen Delivery 06/12/25 20:12 06/12/25 20:22 06/12/25 21:30 Temperature 36.7 C 36.8 C 36.7 C Pulse Rate 57 L 64 54 L Respiratory Rate 16 16 20 Blood Pressure 122/54 L 119/54 L 123/76 Pulse Oximetry 97 95 96 Oxygen Delivery 06/12/25 21:34 06/12/25 22:00 06/12/25 23:50 Temperature 36.7 C Pulse Rate 50 L 54 L Respiratory Rate 18 Blood Pressure 123/60 Pulse Oximetry 94 Oxygen Delivery Room Air 06/12/25 23:58 06/13/25 00:00 06/13/25 02:00 Temperature 36.7 C Pulse Rate 65 92 50 L Respiratory Rate 18 Blood Pressure 133/62 Pulse Oximetry 96 Oxygen Delivery 06/13/25 03:50 06/13/25 04:00 06/13/25 04:48 Temperature 36.8 C Pulse Rate 52 L 53 L Respiratory Rate 16 Blood Pressure 144/66 H Pulse Oximetry 95 Oxygen Delivery Room Air 06/13/25 08:00 06/13/25 11:01 Temperature 36.8 C Pulse Rate 56 L Respiratory Rate 18 Blood Pressure 147/57 H Pulse Oximetry 95 94 Oxygen Delivery Room Air Exam 2 Narrative: General: Alert oriented x3, no acute distress Neck: Supple, no JVD Chest: Bilaterally clear to auscultation, no rales or rhonchi Cardiac: S1, S2 +, regular rate, regular rhythm, no murmurs or rubs Extremities: B no pedal edema, no skin rash Neurologic: Alert and oriented x3, no focal neurological deficits Results Labs and Meds 06/13/25 03:32 06/13/25 03:32 Lab results: Cardiac Enzymes 06/12/25 06/12/25 06/12/25 Range/Units 14:49 18:32 22:19 AST 41 H (14-36) U/L Troponin I 0.025 0.025 0.034 D (0.000-0.034) ng/mL 06/13/25 06/13/25 06/13/25 Range/Units 03:29 03:32 08:59 AST (14-36) U/L Troponin I 0.039 H* Cancelled 0.032 (0.000-0.034) ng/mL Coagulation 06/12/25 Range/Units 14:49 PT 13.6 (11.1-14.7) Seconds APTT 30.4 (22.3-36.8) Seconds CBC 06/12/25 06/13/25 Range/Units 14:49 03:32 WBC 3.1 L 2.7 L (4.5-10.0) K/mm3 RBC 3.59 L 3.57 L (4.2-5.4) M/mm3 Hgb 10.5 L 10.4 L (12.0-15.0) g/dL Hct 33.1 L 33.0 L (37.0-47.0) % Plt Count 200 195 (150-375) k/mm3 Lymph # (Auto) 0.86 L 0.81 L (0.9-3.2) K/mm3 Day # (Auto) 0.4 0.5 (0.1-0.6) K/mm3 Eos # (Auto) 0.2 0.1 (0-0.3) K/mm3 Baso # (Auto) 0.0 0.0 (0.0-0.1) K/mm3 Comprehensive Metabolic Panel 06/12/25 06/13/25 Range/Units 14:49 03:32 Sodium 140 139 (137-145) mmol/L Potassium 3.3 L 3.0 L (3.4-5.0) mmol/L Chloride 109 H 104 (98-107) mmol/L Carbon Dioxide 24 26 (22-30) mmol/L BUN 22 H 20 H (7-17) mg/dL Creatinine 1.14 H 1.12 H (0.7-1.0) mg/dL Glucose 89 85 (65-110) mg/dL Calcium 9.4 8.9 (8.4-10.2) mg/dL AST 41 H (14-36) U/L ALT 21 (6-35) U/L Alkaline Phosphatase 116 (38-126) U/L Total Protein 7.2 (6.3-8.2) g/dL Albumin 3.9 (3.5-5.1) g/dL Intake and Output 06/12/25 06/13/25 06/13/25 23:59 07:59 15:59 Intake Total 50 790 Output Total 2100 Balance 50 -1310 Intake: IV 50 [id number] 1 gm In Sodium 50 Chloride 0.9% IV 50 ml @ 100 mls/hr IVPB ONCE STA Rx#: [id number] Oral 790 Output: Urine 2100 Other: # Unmeasured Voids 1 Patient Weight 06/13/25 23:59 Weight 68.1 kg
--- NOTE | 2025-06-13 13:16 | PM.IMPN ---
Progress Note: A&P Assessment and Plan (1) Chest pain: Code(s): R07.9 - Chest pain, unspecified Status: Acute (2) CKD (chronic kidney disease): Code(s): N18.9 - Chronic kidney disease, unspecified Status: Acute (3) Hypokalemia: Code(s): E87.6 - Hypokalemia Status: Acute (4) UTI (urinary tract infection): Code(s): N39.0 - Urinary tract infection, site not specified Status: Acute (5) Cardiomegaly: Code(s): I51.7 - Cardiomegaly Status: Acute (6) Pleural effusion, left: Code(s): J90 - Pleural effusion, not elsewhere classified Status: Acute Plan Chest pain, atypical pleuritis ECHO pending for CHF eval cardiology eval noted Continue PRN pain control CTA PE negative Elevated ddimer CTA Chest negative Venous doppler negative monitor Cardiomegaly with pleural effusion Elevated NTprobNP ECHO pendign CT chest reviewed continue lasix meantime Cardiology on board Possible UTI UC pending conitineu Rocephin monitor Adnexal mass US pelvis ordered X [employer] EQUIPMENT SERVIC[employer] consulted DVT prophylaxis on Sq Lovenox Subjective Date/time seen: 06/13/25 13:16 Interval history: Comfortable at bedside Review of Systems Review of Systems: All systems reviewed & are unremarkable except as noted in HPI and below (Subjective/HPI) Exam Const: General: comfortable and no acute distress Other: A&O x3 HENMT: Mouth: Yes moist mucous membranes Eyes: Pupils: Equal, round and reactive pupils present Neck: Neck: supple Resp: Effort & Inspection: normal respiratory effort Other: Bibasilar crackles Cardio: Rate: bradycardic Rhythm: regular rhythm Heart sounds: no gallops GI: Inspection: non-distended : General: Yes bladder normal to palpation Bimanual exam- vagina & uterus: bladder normal to palpation Neuro: Cranial nerves: Yes Equal, round and reactive pupils present Extrem: Other: 1+ pitting edema Objective Data Vital Signs Vital Signs: Vital Signs - 24 hr 06/12/25 14:07 06/12/25 14:52 06/12/25 15:01 Temperature 98.2 F 97.3 F L Pulse Rate 58 L Respiratory Rate 18 16 Blood Pressure 163/60 H 162/85 H Pulse Oximetry 99 98 Oxygen Delivery Room Air Room Air Room Air 07/27/25 15:02 06/12/25 16:00 06/12/25 17:01 Temperature 97.9 F 97.9 F 97.8 F Pulse Rate 55 L 52 L 49 L Respiratory Rate 18 20 14 Blood Pressure 163/71 H 152/70 H 151/58 H Pulse Oximetry 100 100 100 Oxygen Delivery 06/12/25 17:30 06/12/25 18:19 06/12/25 19:35 Temperature 97.9 F 98.5 F Pulse Rate 52 L 55 L 56 L Respiratory Rate 14 16 14 Blood Pressure 157/71 H 150/65 H 143/60 H Pulse Oximetry 95 96 98 Oxygen Delivery 06/12/25 20:12 06/12/25 20:22 06/12/25 21:30 Temperature 98.1 F 98.3 F 98.1 F Pulse Rate 57 L 64 54 L Respiratory Rate 16 16 20 Blood Pressure 122/54 L 119/54 L 123/76 Pulse Oximetry 97 95 96 Oxygen Delivery 06/12/25 21:34 06/12/25 22:00 06/12/25 23:50 Temperature 98.1 F Pulse Rate 50 L 54 L Respiratory Rate 18 Blood Pressure 123/60 Pulse Oximetry 94 Oxygen Delivery Room Air 06/12/25 23:58 06/13/25 00:00 06/13/25 02:00 Temperature 98.1 F Pulse Rate 65 92 50 L Respiratory Rate 18 Blood Pressure 133/62 Pulse Oximetry 96 Oxygen Delivery 06/13/25 03:50 06/13/25 04:00 06/13/25 04:48 Temperature 98.3 F Pulse Rate 52 L 53 L Respiratory Rate 16 Blood Pressure 144/66 H Pulse Oximetry 95 Oxygen Delivery Room Air 06/13/25 08:00 06/13/25 11:01 06/13/25 12:00 Temperature 98.3 F 98.3 F Pulse Rate 56 L 57 L Respiratory Rate 18 18 Blood Pressure 147/57 H 152/73 H Pulse Oximetry 95 94 95 Oxygen Delivery Room Air Intake/Output Intake/Output: Intake & Output 06/10/25 06/11/25 06/12/25 06/13/25 23:59 23:59 23:59 23:59 Intake Total 50 1270 Output Total 2100 Balance 50 -830 Meds/Results Medications: Active Medications Generic Name Dose Route Start Last Admin Trade Name Freq PRN Reason Stop Dose Admin Acetaminophen 650 mg 06/12/25 19:40 Acetaminophen 325 Mg Tablet PO Q4H PRN Mild Pain (1-3) or Fever Acetaminophen 500 mg 06/12/25 20:12 Acetaminophen 500 Mg Tablet PO Q6H PRN Mild Pain (1-3) or Fever Hydrocodone Bitart/Acetaminophen 1 tab 06/12/25 20:12 06/13/25 09:40 Hydrocodone/Acetaminophen (*Crx) 10-325 Mg Tablet PO 1 tab Q4H PRN Administration Pain Rated 4-6 Furosemide 20 mg 06/13/25 09:00 06/13/25 08:55 Furosemide Inj 40 Mg/4 Ml Vial IV PUSH 20 mg BID JIHAN Administration Gabapentin 900 mg 06/13/25 21:00 Gabapentin 300 Mg Capsule PO HS JIHAN Morphine Sulfate 3 mg 06/12/25 20:12 06/13/25 05:11 Morphine Sulfate (*Crx) 4 Mg/Ml Inj IV PUSH 3 mg Q4H PRN Administration Pain Rated 7-10 Ondansetron HCl 4 mg 06/12/25 19:40 Ondansetron Inj 4 Mg/2 Ml Vial IV PUSH Q4H PRN Nausea Perflutren Lipid Microsphere 0 ml 06/12/25 19:43 Perflutren Lipid Microspheres 1.5 Ml Vial Diluted To 10 Ml Total Volume IV PUSH 06/15/25 19:44 ONCE PRN adequate visualization Protocol Radiology Results: ITS Impressions Chest X-Ray 06/12/25 15:42 IMPRESSION: Subsegmental left basilar atelectasis/consolidation. Small bilateral pleural effusions versus chronic pleural blunting. Progressive multilevel vertebral body compression deformities and thoracic kyphosis since 2018. Chest/Abdomen/Pelvis CTA 06/12/25 17:56 IMPRESSION: Mild ascending thoracic aortic ectasia. No dissection. Cardiomegaly. Dependent subsegmental atelectasis/consolidation in the lower lobes. Small left pleural effusion. Examination of the abdomen is limited by motion artifact. 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 1.2 cm pancreatic cyst, slight interval growth since 2018, consider follow-up in one year if the patient is a surgical candidate. Status post right nephrectomy. Cortical atrophy and scarring in the remaining left kidney. Mild left hydronephrosis. The hydronephrosis may be related to adnexal mass that determination is difficult given the degree of motion artifact and metal artifact. 9.1 cm cystic right adnexal mass, poorly evaluated due to artifact from hip arthroplasty hardware. Pelvis Ultrasound 06/13/25 08:58 IMPRESSION: Simple cyst within the left adnexa measuring 9.4 cm in greatest dimension for which X [employer] E[employer] SERVIC[employer] follow-up is recommended. Labs Labs: Laboratory Results - last 24 hr 06/12/25 06/12/25 06/12/25 14:49 18:32 18:40 WBC 3.1 L RBC 3.59 L Hgb 10.5 L Hct 33.1 L MCV 92.2 MCH 29.2 MCHC 31.7 L RDW 14.6 H Plt Count 200 MPV 9.0 Immature Gran % (Auto) 0.3 Neut % (Auto) 52.7 Lymph % (Auto) 27.5 [place] % (Auto) 13.7 H Eos % (Auto) 4.8 H Baso % (Auto) 1.0 Lymph # (Auto) 0.86 L [place] # (Auto) 0.4 Eos # (Auto) 0.2 Baso # (Auto) 0.0 Abs Immat Gran (auto) 0.01 Absolute Neuts (auto) 1.7 Absolute Nucleated RBC 0.000 Nucleated RBC % 0.0 PT 13.6 INR 1.0 APTT 30.4 D-Dimer 1.33 H Sodium 140 Potassium 3.3 L Chloride 109 H Carbon Dioxide 24 Anion Gap 7 BUN 22 H Creatinine 1.14 H Estim Creat Clear Calc 31 Estimated GFR 45 L Glucose 89 Calcium 9.4 Magnesium 1.7 Total Bilirubin 0.6 AST 41 H ALT 21 Alkaline Phosphatase 116 Troponin I 0.025 0.025 NT-Pro-B Natriuret Pep 2180 H Total Protein 7.2 Albumin 3.9 Urine Color Yellow Urine Appearance Cloudy H Urine pH 5.0 Ur Specific [place] 1.031 Urine Protein Negative Urine Glucose (UA) Negative Urine Ketones Negative Ur Blood (Man) 1+ H Urine Nitrate Negative Urine Bilirubin Negative Urine Urobilinogen 0.2 Add Ur Microanalysis Reviewed Leukocyte Esterase Rfl 3+ H Urine RBC 0-2 Urine WBC >100 H Ur Squamous Epith Cells Few Urine Bacteria 4+ H Urine Casts 0-2 06/12/25 06/13/25 06/13/25 22:19 03:29 03:32 WBC 2.7 L RBC 3.57 L Hgb 10.4 L Hct 33.0 L MCV 92.4 MCH 29.1 MCHC 31.5 L RDW 14.7 H Plt Count 195 MPV 10.0 Immature Gran % (Auto) 0.4 Neut % (Auto) 46.9 Lymph % (Auto) 29.9 [place] % (Auto) 18.8 H Eos % (Auto) 3.3 Baso % (Auto) 0.7 Lymph # (Auto) 0.81 L [place] # (Auto) 0.5 Eos # (Auto) 0.1 Baso # (Auto) 0.0 Abs Immat Gran (auto) 0.01 Absolute Neuts (auto) 1.3 Absolute Nucleated RBC 0.000 Nucleated RBC % 0.0 PT INR APTT D-Dimer Sodium 139 Potassium 3.0 L Chloride 104 Carbon Dioxide 26 Anion Gap 9 BUN 20 H Creatinine 1.12 H Estim Creat Clear Calc 31 Estimated GFR 46 L Glucose 85 Calcium 8.9 Magnesium 1.5 L Total Bilirubin AST ALT Alkaline Phosphatase Troponin I 0.034 D 0.039 H* Cancelled NT-Pro-B Natriuret Pep Total Protein Albumin Urine Color Urine Appearance Urine pH Ur Specific [place] Urine Protein Urine Glucose (UA) Urine Ketones Ur Blood (Man) Urine Nitrate Urine Bilirubin Urine Urobilinogen Add Ur Microanalysis Leukocyte Esterase Rfl Urine RBC Urine WBC Ur Squamous Epith Cells Urine Bacteria Urine Casts 06/13/25 08:59 WBC RBC Hgb Hct MCV MCH MCHC RDW Plt Count MPV Immature Gran % (Auto) Neut % (Auto) Lymph % (Auto) [place] % (Auto) Eos % (Auto) Baso % (Auto) Lymph # (Auto) [place] # (Auto) Eos # (Auto) Baso # (Auto) Abs Immat Gran (auto) Absolute Neuts (auto) Absolute Nucleated RBC Nucleated RBC % PT INR APTT D-Dimer Sodium Potassium Chloride Carbon Dioxide Anion Gap BUN Creatinine Estim Creat Clear Calc Estimated GFR Glucose Calcium Magnesium Total Bilirubin AST ALT Alkaline Phosphatase Troponin I 0.032 NT-Pro-B Natriuret Pep Total Protein Albumin Urine Color Urine Appearance Urine pH Ur Specific [place] Urine Protein Urine Glucose (UA) Urine Ketones Ur Blood (Man) Urine Nitrate Urine Bilirubin Urine Urobilinogen Add Ur Microanalysis Leukocyte Esterase Rfl Urine RBC Urine WBC Ur Squamous Epith Cells Urine Bacteria Urine Casts
[2025-06-13] MEDS: ENOXAPARIN 40 MG/0.4 ML SYRINGE SUB-Q (14:10)
[2025-06-13] MEDS: LOPERAMIDE HCL 2 MG CAPSULE 4 MG PO (14:12)
[2025-06-13] MEDS: PERFLUTREN LIPID MICROSPHERES 1.5 ML VIAL DILUTED TO 10 ML TOTAL VOLUME IV PUSH (14:50)
--- NOTE | 2025-06-13 15:17 | IVDEFINITY ---
Prior to administration of IV Definity the patient was educated on the risks and benefits of the imaging enhancing agent including potential adverse side effects. The patient verbalized understanding. Allergies were verified. No exclusion criteria were identified and at least one of the following inclusion criteria were met: 1) physician request, 2) patient technically difficult to image (per the [place] [employer] guidelines of two or more segments not discernable within the apical view), or 3) questionable left ventricular function. ?
[2025-06-13] MEDS: GABAPENTIN 300 MG CAPSULE 900 MG PO (20:51)
[2025-06-13] MEDS: APIXABAN 5 MG TABLET 10 MG PO (21:31)
[2025-06-14] VITALS (16 sets, daily range): BP systolic 103–141; BP diastolic 53–74; PULSE 57–79; RESP 12–18; TEMP 36.4–36.9; O2SAT 93–99
[2025-06-14] MEDS: MORPHINE SULFATE (*CRX) 4 MG/ML INJ 3 MG IV PUSH ×2 (03:48→08:51)
[2025-06-14 04:23] LABS: Hematocrit 37.7 % (37.0-47.0); Hemoglobin 12.0 g/dL (12.0-15.0); Immature Granulocyte Percent A 0.0 % (0-0.5); Lymphocytes Absolute Auto 1.09 K/mm3 (0.9-3.2); Mean Corpuscular HGB Conc 31.8 g/dl (32-36); Mean Corpuscular Hemoglobin 29.1 pg (26-34); Mean Corpuscular Volume 91.5 fl (80-100); Nucleated Red Blood Cells Absolute Auto 0.000 K/mm3 (0.0-0.012); Nucleated Red Blood Cells Perc 0.0 % (0.0-0.2); Platelet Count Result 191 k/mm3 (150-375); Red Blood Count 4.12 M/mm3 (4.2-5.4); White Blood Count 3.4 K/mm3 (4.5-10.0)
[2025-06-14 04:36] LABS: Alanine Aminotransferase 21 U/L (6-35); Albumin Level 3.8 g/dL (3.5-5.1); Alkaline Phosphatase 117 U/L (38-126); Anion Gap 9 mmol/L (4-12); Aspartate Amino Transferase 43 U/L (14-36); Bilirubin,Total 0.5 mg/dL (0.2-1.3); Blood Urea Nitrogen 18 mg/dL (7-17); Calcium 9.0 mg/dL (8.4-10.2); Carbon Dioxide 28 mmol/L (22-30); Chloride 97 mmol/L (98-107); Estimated CRCL calculation 30 ml/min; Estimated Glomerular Filt Rate 45; Glucose 91 mg/dL (65-110); Magnesium 1.6 mg/dL (1.6-2.3); Potassium 3.1 mmol/L (3.4-5.0); Sodium 134 mmol/L (137-145); Total Protein 7.1 g/dL (6.3-8.2)
[2025-06-14] MEDS: FUROSEMIDE INJ 40 MG/4 ML VIAL 20 MG IV PUSH ×2 (08:51→18:35)
[2025-06-14] MEDS: APIXABAN 5 MG TABLET 10 MG PO ×2 (08:53→20:20)
[2025-06-14] MEDS: MAGNESIUM SULF 1 GM/D5W 100 ML 1 GM/100 ML BAG IVPB (12:50)
[2025-06-14] MEDS: POTASSIUM CHLORIDE 20 MEQ ER TABLET 40 MEQ PO (12:50)
[2025-06-14] MEDS: HYDROcodone/acetaminophen (*CRX) 10-325 MG TABLET 1 TAB PO ×3 (12:51→21:10)
[2025-06-14] MEDS: LOPERAMIDE HCL 2 MG CAPSULE 4 MG PO ×3 (12:57→21:09)
[2025-06-14 14:22] LABS: Anion Gap 8 mmol/L (4-12); Blood Urea Nitrogen 21 mg/dL (7-17); Calcium 9.2 mg/dL (8.4-10.2); Carbon Dioxide 32 mmol/L (22-30); Chloride 91 mmol/L (98-107); Estimated CRCL calculation 24 ml/min; Estimated Glomerular Filt Rate 34; Glucose 117 mg/dL (65-110); Magnesium 1.6 mg/dL (1.6-2.3); Potassium 3.6 mmol/L (3.4-5.0); Sodium 131 mmol/L (137-145)
[2025-06-14 14:29] LABS: NT Pro B Type Natriuretic Pept 3210 pg/mL (19.9-100)
--- NOTE | 2025-06-14 18:34 | PM.IMPN ---
Progress Note: A&P Assessment and Plan (1) Chest pain: Code(s): R07.9 - Chest pain, unspecified Status: Acute (2) CKD (chronic kidney disease): Code(s): N18.9 - Chronic kidney disease, unspecified Status: Acute (3) Hypokalemia: Code(s): E87.6 - Hypokalemia Status: Acute (4) UTI (urinary tract infection): Code(s): N39.0 - Urinary tract infection, site not specified Status: Acute (5) Cardiomegaly: Code(s): I51.7 - Cardiomegaly Status: Acute (6) Pleural effusion, left: Code(s): J90 - Pleural effusion, not elsewhere classified Status: Acute Plan 84 y/o female presented with c/o CP, out her 3 sets cardiac enzyme middle was slightly elevated, there are acute changes in EKG, manufacturing engineer assembly suspect most likely musculoskeletal, however patient BNP is elevated, will monitor, will also evaluate cardiac echo and further recommendations to follow. patient stats she is feeling better and wants to go home. Chest pain, atypical pleuritis ECHO pending for CHF eval cardiology eval noted Continue PRN pain control CTA PE negative Elevated ddimer CTA Chest negative Venous doppler negative monitor Cardiomegaly with pleural effusion Elevated NTprobNP ECHO pendign CT chest reviewed continue lasix meantime Cardiology on board Possible UTI UC pending conitineu Rocephin monitor Adnexal mass US pelvis ordered RIVETING MACHINE OPERATOR consulted DVT prophylaxis on Sq Lovenox Subjective Date/time seen: 06/14/25 18:34 Interval history: Comfortable at bedside Review of Systems Review of Systems: All systems reviewed & are unremarkable except as noted in HPI and below (Subjective/HPI) Objective Data Vital Signs Vital Signs: Vital Signs - 24 hr 06/13/25 19:37 06/13/25 20:00 06/13/25 22:13 Temperature 37.0 C Pulse Rate 59 L 56 L 58 L Respiratory Rate 18 Blood Pressure 160/68 H Pulse Oximetry 96 Oxygen Delivery 06/13/25 23:54 06/14/25 00:00 06/14/25 00:00 Temperature 36.7 C Pulse Rate 71 71 66 Respiratory Rate 18 18 Blood Pressure 138/70 Pulse Oximetry 99 99 Oxygen Delivery Room Air 06/14/25 02:00 06/14/25 04:00 06/14/25 04:00 Temperature Pulse Rate 57 L 61 Respiratory Rate Blood Pressure Pulse Oximetry Oxygen Delivery Room Air 06/14/25 04:44 06/14/25 05:58 06/14/25 07:43 Temperature 36.8 C 36.9 C Pulse Rate 58 L 60 73 Respiratory Rate 15 12 Blood Pressure 141/61 H 113/74 Pulse Oximetry 96 98 Oxygen Delivery 06/14/25 08:00 06/14/25 10:00 06/14/25 11:44 Temperature 36.4 C Pulse Rate 63 62 62 Respiratory Rate 12 Blood Pressure 119/57 L Pulse Oximetry 93 Oxygen Delivery 06/14/25 12:00 06/14/25 14:00 06/14/25 16:00 Temperature 36.7 C Pulse Rate 59 L 65 68 Respiratory Rate 12 Blood Pressure 104/57 L Pulse Oximetry 93 Oxygen Delivery Intake/Output Intake/Output: Intake & Output 06/11/25 06/12/25 06/13/25 06/14/25 23:59 23:59 23:59 23:59 Intake Total 50 2350 1700 Output Total 5100 650 Balance 50 -2750 1050 Meds/Results Medications: Active Medications Generic Name Dose Route Start Last Admin Trade Name Freq PRN Reason Stop Dose Admin Acetaminophen 500 mg 06/12/25 20:12 Acetaminophen 500 Mg Tablet PO Q6H PRN Mild Pain (1-3) or Fever Hydrocodone Bitart/Acetaminophen 1 tab 06/12/25 20:12 06/14/25 12:51 Hydrocodone/Acetaminophen (*Crx) 10-325 Mg Tablet PO 1 tab Q4H PRN Administration Pain Rated 4-6 Hydrocodone Bitart/Acetaminophen 1 tab 06/14/25 11:19 Hydrocodone/Acetaminophen (*Crx) 5-325 Mg Tablet PO Q6H PRN Pain 4-6 Amlodipine Besylate 5 mg 06/14/25 18:00 Amlodipine Besylate 5 Mg Tablet PO QPM JIHAN Apixaban 10 mg 06/13/25 21:15 06/14/25 08:53 Apixaban 5 Mg Tablet PO 06/20/25 09:01 10 mg Q12HR JIHAN Administration Ascorbic Acid 500 mg 06/15/25 09:00 Ascorbic Acid 500 Mg Tablet PO QAM [facility] Aspirin 81 mg 06/15/25 09:00 Aspirin 81 Mg Enteric Tablet PO QAM [facility] Calcium Carbonate 1,000 mg 06/15/25 09:00 Calcium Carbonate (Oscal) 500 Mg Tablet PO QAM [facility] Furosemide 20 mg 06/13/25 09:00 06/14/25 08:51 Furosemide Inj 40 Mg/4 Ml Vial IV PUSH 20 mg BID JIHAN Administration Gabapentin 900 mg 06/13/25 21:00 06/13/25 20:51 Gabapentin 300 Mg Capsule PO 900 mg HS JIHAN Administration Hydrochlorothiazide 25 mg 06/15/25 09:00 Hydrochlorothiazide 25 Mg Tablet PO DAILY JIHAN Loperamide HCl 4 mg 06/13/25 13:20 06/14/25 12:57 Loperamide Hcl 2 Mg Capsule PO 4 mg Q1-2H PRN Administration Loose Stool Loperamide HCl 8 mg 06/14/25 11:19 Loperamide Hcl 2 Mg Capsule PO Q4H PRN loose stool Magnesium Oxide 400 mg 06/15/25 09:00 Magnesium Oxide 400 Mg Tablet PO DAILY [facility] Morphine Sulfate 3 mg 06/12/25 20:12 06/14/25 08:51 Morphine Sulfate (*Crx) 4 Mg/Ml Inj IV PUSH 3 mg Q4H PRN Administration Pain Rated 7-10 Multivitamins Therapeutic 1 tablet 06/15/25 09:00 Multivitamins Therapeutic Tab (*Bkc) PO DAILY [facility] Per P&T, 1 each 06/14/25 11:26 Nonformulary XX 06/15/25 11:25 Nutritional PRN PRN Supplements And PROTOCOL Vitamins Will Be Held Until Discharge :No Ondansetron HCl 4 mg 06/12/25 19:40 Ondansetron Inj 4 Mg/2 Ml Vial IV PUSH Q4H PRN Nausea Vitamin D 50 mcg 06/15/25 09:00 Cholecalciferol (Vitamin D3) 25 Mcg (1,000 Units) Tablet PO QAM [facility] Vitamin E 400 unit 06/15/25 09:00 Vitamin E 400 [facility] Results: ITS Impressions Chest X-Ray 06/12/25 15:42 IMPRESSION: Subsegmental left basilar atelectasis/consolidation. Small bilateral pleural effusions versus chronic pleural blunting. Progressive multilevel vertebral body compression deformities and thoracic kyphosis since 2018. Chest/Abdomen/Pelvis CTA 06/12/25 17:56 IMPRESSION: Mild ascending thoracic aortic ectasia. No dissection. Cardiomegaly. Dependent subsegmental atelectasis/consolidation in the lower lobes. Small left pleural effusion. Examination of the abdomen is limited by motion artifact. 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 1.2 cm pancreatic cyst, slight interval growth since 2018, consider follow-up in one year if the patient is a surgical candidate. Status post right nephrectomy. Cortical atrophy and scarring in the remaining left kidney. Mild left hydronephrosis. The hydronephrosis may be related to adnexal mass that determination is difficult given the degree of motion artifact and metal artifact. 9.1 cm cystic right adnexal mass, poorly evaluated due to artifact from hip arthroplasty hardware. Pelvis Ultrasound 06/13/25 08:58 IMPRESSION: Simple cyst within the left adnexa measuring 9.4 cm in greatest dimension for which RIVETING MACHINE OPERATOR follow-up is recommended. Venous Doppler Study 06/13/25 19:31 IMPRESSION: 1. [id number] deep venous thrombosis in the right posterior tibial and peroneal veins. Findings were discussed with Tanvi Walters, the nurse caring for the patient, at 7:35 PM. 2. No deep venous thrombosis in the left lower limb. Labs Labs: Laboratory Results - last 24 hr 06/14/25 06/14/25 03:37 13:45 WBC 3.4 L RBC 4.12 L Hgb 12.0 Hct 37.7 MCV 91.5 MCH 29.1 MCHC 31.8 L RDW 14.6 H Plt Count 191 MPV 9.9 Immature Gran % (Auto) 0.0 Neut % (Auto) 47.9 Lymph % (Auto) 32.4 [place] % (Auto) 17.3 H Eos % (Auto) 1.8 Baso % (Auto) 0.6 Lymph # (Auto) 1.09 [place] # (Auto) 0.6 Eos # (Auto) 0.1 Baso # (Auto) 0.0 Abs Immat Gran (auto) 0.00 Absolute Neuts (auto) 1.6 Absolute Nucleated RBC 0.000 Nucleated RBC % 0.0 Sodium 134 L 131 L Potassium 3.1 L 3.6 Chloride 97 L 91 L Carbon Dioxide 28 32 H Anion Gap 9 8 BUN 18 H 21 H Creatinine 1.16 H 1.48 H Estim Creat Clear Calc 30 24 Estimated GFR 45 L 34 L Glucose 91 117 H Calcium 9.0 9.2 Magnesium 1.6 1.6 Total Bilirubin 0.5 AST 43 H ALT 21 Alkaline Phosphatase 117 NT-Pro-B Natriuret Pep 3210 H Total Protein 7.1 Albumin 3.8
[2025-06-14] MEDS: GABAPENTIN 300 MG CAPSULE 900 MG PO (20:19)
--- NOTE | 2025-06-14 23:11 | PC.NURSE ---
SBAR tubed to room 317 NurseJacuqelyn. Verbal report given to Jacquelyn PRICE
--- NOTE | 2025-06-14 23:36 | PC.NURSE ---
Patient transferred with all of her belongingss to 317 bed 2
--- NOTE | 2025-06-14 23:42 | PC.NURSE ---
This patient, Karen Trammell, was received from [ [phone]] on 06/14/25 at 2330. Patient/family oriented to unit policies and routines
[2025-06-15] VITALS: PULSE 59
[2025-06-15 04:00] VITALS: PULSE 54
[2025-06-15 06:00] VITALS: BP 97/55; PULSE 58; RESP 16; TEMP 36.4; O2SAT 94
[2025-06-15 08:00] VITALS: PULSE 103
[2025-06-15] MEDS: ASCORBIC ACID 500 MG TABLET PO (08:09)
[2025-06-15] MEDS: CHOLECALCIFEROL (VITAMIN D3) 25 MCG (1,000 UNITS) TABLET 50 MCG PO (08:09)
[2025-06-15] MEDS: VITAMIN E 400 UNIT CAPSULE PO (08:09)
[2025-06-15] MEDS: ASPIRIN 81 MG ENTERIC TABLET PO (08:09)
[2025-06-15] MEDS: APIXABAN 5 MG TABLET 10 MG PO (08:09)
[2025-06-15] MEDS: CALCIUM CARBONATE (OSCAL) 500 MG TABLET 1000 MG PO (08:09)
[2025-06-15] MEDS: MAGNESIUM OXIDE 400 MG TABLET PO (08:09)
[2025-06-15] MEDS: MULTIVITAMINS THERAPEUTIC TAB (*BKC) 1 TABLET PO (08:09)
[2025-06-15] MEDS: FUROSEMIDE INJ 40 MG/4 ML VIAL 20 MG IV PUSH (08:09)
[2025-06-15 08:57] LABS: Hematocrit 35.3 % (37.0-47.0); Hemoglobin 11.7 g/dL (12.0-15.0); Mean Corpuscular HGB Conc 33.1 g/dl (32-36); Mean Corpuscular Hemoglobin 29.7 pg (26-34); Mean Corpuscular Volume 89.6 fl (80-100); Platelet Count Result 187 k/mm3 (150-375); Red Blood Count 3.94 M/mm3 (4.2-5.4); White Blood Count 4.1 K/mm3 (4.5-10.0)
[2025-06-15 10:00] LABS: Anion Gap 9 mmol/L (4-12); Blood Urea Nitrogen 29 mg/dL (7-17); Calcium 8.9 mg/dL (8.4-10.2); Carbon Dioxide 31 mmol/L (22-30); Chloride 95 mmol/L (98-107); Estimated CRCL calculation 21 ml/min; Estimated Glomerular Filt Rate 28; Glucose 118 mg/dL (65-110); Magnesium 1.8 mg/dL (1.6-2.3); NT Pro B Type Natriuretic Pept 1630 pg/mL (19.9-100); Potassium 3.4 mmol/L (3.4-5.0); Sodium 135 mmol/L (137-145)
--- NOTE | 2025-06-15 11:45 | P.DS_ITS ---
DS: Admitting Diagnosis Discharge Date 06/15/25 Admitting Diagnosis Pleuritic chest pain DS: Discharge Diagnosis Discharge Diagnosis (1) Chest pain: Code(s): R07.9 - Chest pain, unspecified Status: Acute (2) CKD (chronic kidney disease): Code(s): N18.9 - Chronic kidney disease, unspecified Status: Acute (3) Hypokalemia: Code(s): E87.6 - Hypokalemia Status: Acute (4) UTI (urinary tract infection): Code(s): N39.0 - Urinary tract infection, site not specified Status: Acute (5) Cardiomegaly: Code(s): I51.7 - Cardiomegaly Status: Acute (6) Pleural effusion, left: Code(s): J90 - Pleural effusion, not elsewhere classified Status: Acute Plan 84 y/o female presented with c/o CP, out her 3 sets cardiac enzyme middle was slightly elevated, there are acute changes in EKG, manager wound suspect most likely musculoskeletal, however patient BNP is elevated, will monitor, will also evaluate cardiac echo and further recommendations to follow. patient stats she is feeling better and wants to go home. Chest pain, atypical pleuritis ECHO pending for CHF eval cardiology eval noted Continue PRN pain control CTA PE negative Elevated ddimer CTA Chest negative Venous doppler negative monitor Cardiomegaly with pleural effusion Elevated NTprobNP ECHO pendign CT chest reviewed continue lasix meantime Cardiology on board Possible UTI UC pending conitineu Rocephin monitor Adnexal mass US pelvis ordered DIRECTOR OF STRATEGIC PARTNERSHIPS consulted DVT prophylaxis on Sq Lovenox DS: Summary Hospital Course Hospital Course: 84 y/o female presented with c/o CP, out her 3 sets cardiac enzyme middle was slightly elevated, there are acute changes in EKG, manager wound suspect most likely musculoskeletal, however patient BNP is elevated, will monitor, will also evaluate cardiac echo and further recommendations to follow. patient stats she is feeling better and wants to go home. today patient BNP is trending down, her cardiac echo is normal, patient is clinically will discharge home today. Time Spent with Patient Time attestation: Total time spent providing and/or coordinating discharge services: DS: Data Data Completed and Pending Labs on day of discharge: Labs from last 24 hours 06/15/25 06/14/25 08:43 13:45 WBC 4.1 L RBC 3.94 L Hgb 11.7 L Hct 35.3 L MCV 89.6 MCH 29.7 MCHC 33.1 RDW 14.6 H Plt Count 187 MPV 9.4 Sodium 135 L 131 L Potassium 3.4 3.6 Chloride 95 L 91 L Carbon Dioxide 31 H 32 H Anion Gap 9 8 BUN 29 H 21 H Creatinine 1.71 H 1.48 H Estim Creat Clear Calc 21 24 Estimated GFR 28 L 34 L Glucose 118 H 117 H Calcium 8.9 9.2 Magnesium 1.8 1.6 NT-Pro-B Natriuret Pep 1630 H 3210 H Preliminary micro results at discharge 06/12/25 18:40 - Preliminary Unspecified Urine Discharge Plan Discharge Attending physician on discharge: Tessa Raza Consulting providers: Marcela Vivas; Tony Pierce; Tony Hernandez; Kathy Whittaker; Juice Roy; Jacquelyn Rivas; Diomedes Rosenthal Discharging Clinician: Meagan Herrera Patient Disposition: Home Activity: as tolerated Diet: heart healthy Discharge Instructions: patient to follow up with her primary care provider as soon as possible, patient to recheck her kidney function patient is instructed if any symptoms worsen to go to nearest ER. Eliquis 10 mg twice a day until bottle complete. After 10mg dosage complete, switch to 5mg dosage twice a day and follow up with PCP. Patient Instructions: Heart Failure (GEN) Patient Language: E[place] Stand Alone Forms: General Discharge Information Follow-up/Referrals: Pily,Ambrocio Murillo MD [Primary Care Provider] - Discharge Medications: New Eliquis 5 mg Tablet 10 mg PO Q12HR Qty: 12 0RF apixaban 5 mg tablet 5 mg PO BID Qty: 60 0RF Continued multivitamin [Daily Multi-Vitamin] Tablet 1 tablet PO DAILY cinnamon bark [Cinnamon] 500 mg Capsule 1,000 mg PO QAM vitamin E mixed 400 unit Capsule 400 unit PO QAM hydrocodone-acetaminophen 5-325 mg tablet 1 tablet PO Q6-8H PRN (Reason: Pain) ascorbic acid (vitamin C) [Vitamin C] 500 mg Tablet 500 mg PO QAM Patient Comments: TAKES 2 TABS DAILY cholecalciferol (vitamin D3) [Vitamin D3] 50 mcg (2,000 unit) Capsule 50 mcg PO QAM gabapentin 300 mg capsule 900 mg PO HS calcium 600 mg Capsule 1,200 mg PO QAM aspirin 81 mg Tablet,Delayed Release (Dr/Ec) 81 mg PO QAM garlic 500 mg Capsule 500 mg PO DAILY magnesium 200 mg Tablet 400 mg PO DAILY cranberry extract 200 mg Capsule 4,200 mg PO DAILY Rx Instructions: administer with a meal amlodipine 5 mg tablet 5 mg PO QPM hydrochlorothiazide 25 mg tablet 25 mg PO DAILY loperamide [Imodium A-D] 2 mg capsule 8 mg PO Q4H PRN (Reason: loose stool) Patient Comments: Patient states her colon specialist lets her take up to 35 mg loperamide daily. Patient has hx of colon cancer and bowel resection. Rx Instructions: administer after each loose stool until symptoms controlled; do not exceed 8 mg per 24 hrs Date of admission: 06/14/25 16:10 Primary Care Provider: Pily,Ambrocio Murillo Admitting Provider: Tessa Raza Attending physician on admission: Meagan Herrera Condition: Stable
[2025-06-15 12:00] VITALS: PULSE 70
--- NOTE | 2025-06-16 06:57 | P.CDI_ITS ---
CDI Query Clarification Request In the medical record, cardiology consult notes document acute diastolic CHF, while also noting the patient is euvolemic by exam that day. The hospitalist documentation does not mention acute CHF. 1)Based on the clinical picture, can you please clarify whether the patient is experiencing: * acute diastolic CHF * chronic diastolic CHF * no evidence of CHF at this time * other, please specify The medical chart reflects the following: Plan Atypical chest pain- sharp and radiating from the back to the left chest, increases with deep breaths, sharp in nature, not associated with any diaphoresis or SOB Elevated troponin x1 at 0.039 (cutoff 0.034), other troponins negative Elevated D-dimer- CT chest is negative for dissection. No PE. Mild coronary calcification. Degenerative disc disease noted Acute diastolic heart failure- elevated NT proBNP; she has been getting IV Lasix; she is euvolemic on exam today Sinus bradycardia-asymptomatic CKD, solitary kidney (history of renal cell cancer status post nephrectomy)- creatinine 1.12 Hypertension Plan: -Chest pain is atypical and increases with deep breaths. No exertional chest pain. Only 1 troponin is very mildly elevated at 0.039, otherwise other troponins are negative. D-dimer is elevated but CT chest does not show any dissection or PE. She had a negative stress test in 2020 and EF was normal at 60%. Obtain TTE to evaluate LVEF, any regional wall motion abnormalities. If LVEF is normal and no wall motion abnormalities, no further cardiac workup indicated at this time. There is degenerative disease of the thoracic and lumbar spine noted on CT. Recommend further evaluation for noncardiac causes of chest pain including any spinal etiology for back pain radiating to left chest. -She is euvolemic by exam today. Renal function is improved. Can recheck BNP to note trend. Can switch Lasix to 20 mg p.o. once a day. -Check and replace electrolytes to keep potassium greater than 4 and magnesium greater than 2. -Monitor renal function. -Check daily weights and ins and outs. ECHO: Summary 1. There is normal biventricular size and systolic function. 2. There are no significant valvular abnormalities. 3. There is moderate pulmonary hypertension. 4. There is severe biatrial enlargement. BNP: 2180, 3210, 1630 IV lasix given <Beata Swanson RN - Last Filed: 06/16/25 07:09> Clarified Diagnosis Clarified Diagnosis: though upon arrival patient BNP was elevated, however there no evidence of CHF at this time <Meagan Herrera MD - Last Filed: 06/26/25 20:49>
== END 2025-06-15 13:10 | disposition home or self-care (01) | DRG 291 ==
LOC: ANHED 19:40 → ANHIMU 21:01 → ANH3MEDSUR 06-15 08:11 → ANHIMU 06-16 13:40
PROVIDERS: Internal Medicine; Admitting Provider General Practice; Emergency Provider Student in an Organized Health Care Education/Training Program; PCP Internal Medicine; Visit Provider Family Medicine
DX: I13.0 Hypertensive heart and chronic kidney disease with heart failure and stage 1 through stage 4 chronic kidney disease, or unspecified chronic kidney disease (principal); I50.31 Acute diastolic (congestive) heart failure; C85.9A Non-Hodgkin lymphoma, unspecified, in remission; N39.0 Urinary tract infection, site not specified; N18.9 Chronic kidney disease, unspecified; B96.20 Unspecified Escherichia coli [E. coli] as the cause of diseases classified elsewhere; B96.1 Klebsiella pneumoniae [K. pneumoniae] as the cause of diseases classified elsewhere; R07.89 Other chest pain; R19.09 Other intra-abdominal and pelvic swelling, mass and lump; Z85.828 Personal history of other malignant neoplasm of skin; Z85.528 Personal history of other malignant neoplasm of kidney; Z85.3 Personal history of malignant neoplasm of breast; Z85.038 Personal history of other malignant neoplasm of large intestine; Z96.651 Presence of right artificial knee joint; Z96.643 Presence of artificial hip joint, bilateral; Z96.611 Presence of right artificial shoulder joint; Z90.5 Acquired absence of kidney; Z66 Do not resuscitate
CPT/HCPCS: 36415; 71046; 71275; 74174; 76856; 80048; 80053; 81001; 83735; 83880; 84484; 85025; 85027; 85380; 85610; 85730; 87086; 93005; 93970; 96365; 96367; 96372; 96375; 99285; A9270; C8929; G0378; J0696; J1650; J1938; J2270; J3475; Q9957; Q9967

== ENCOUNTER 2025-11-15 15:30 | Emergency (ER) | payer MEDICARE, SELFPAY ==
--- NOTE | ~2025-11-15 | US_ITS ---
US venous doppler LE BI INDICATION: Pain and swelling in both lower extremities. COMPARISON: None. TECHNIQUE: The deep veins of both lower extremities were evaluated with Duplex Doppler, color Doppler, and high-resolution B-mode sonography. Evaluated veins include the common femoral, femoral, and popliteal veins. The calf veins were also evaluated. Compression and augmentation maneuvers were performed. FINDINGS: The deep veins of both lower extremities were compressible and demonstrated spontaneous phasic waveforms with an appropriate response to augmentation maneuvers. The visualized calf veins were patent. IMPRESSION: There was no sonographic evidence of deep vein thrombosis in both lower extremities. Reviewed, dictated and finalized at location S[facility] IMPRESSION: There was no sonographic evidence of deep vein thrombosis in both lower extremi ties.
[2025-11-15 15:35] VITALS: BP 137/77; PULSE 74; RESP 17; TEMP 36.4; O2SAT 97
[2025-11-15 17:11] VITALS: BP 110/53; PULSE 61; RESP 18; TEMP 36.4; O2SAT 98
--- NOTE | 2025-11-15 18:28 | ED.EXTPRO ---
HPI - Extremity Problem General Chief complaint: Extremity Problem,Nontraumatic <Nicole Medina PA-C - Last Filed: 11/15/25 18:37> Stated complaint: foot and leg swelling <Nicole Medina PA-C - Last Filed: 11/15/25 18:37> Time Seen by Provider: 11/15/25 18:28 <Nicole Medina PA-C - Last Filed: 11/15/25 18:37> Focused HPI: Patient is an 85-year-old female who presents the ED with report of swelling in her lower extremities. Reports she has had increased swelling to BLE over the past few days. Today she noticed that her right leg was much more swollen than the left and painful throughout her medial calf. Is on Lasix due to Hx of CHF, but denies improvement with this. Called her PCP today was referred to the ED for further evaluation. Patient denies increased shortness of breath. Denies chest pain. Denies previous history of blood clots. States she was started on Eliquis for 1 month after hospitalization in May, but was told she did not need to continue this medication. GENERAL: Elderly, thin, and in no acute distress. HEAD: Normocephalic, atraumatic. CHEST: Clear to auscultation. ?No respiratory distress. HEART: Regular rate and rhythm.? MSK: Marked pitting edema throughout RLE, TTP along medial calf. Mild pitting edema LLE NEURO: ?Alert and oriented x3. Patient screened in triage and initial orders placed.? ?Additional care and disposition to be based upon?diagnostic testing and treatment. <Nicole Medina PA-C - Last Filed: 11/15/25 18:37> Source: patient <Nicole Medina PA-C - Last Filed: 11/15/25 18:37> Mode of arrival: ambulatory <Nicole Medina PA-C - Last Filed: 11/15/25 18:37> Limitations: no limitations <Nicole Medina PA-C - Last Filed: 11/15/25 18:37> History of Present Illness HPI Narrative: Agree with the HPI above <Chuckie Layne MD - Last Filed: 11/16/25 07:44> Related Data Home medications: Home Medications ?Medication ?Instructions ?Recorded ?Confirmed ?Last Taken ?Type multivitamin (Daily Multi-Vitamin 1 tablet PO DAILY 04/03/20 06/12/25 07/12/22 History tablet) ascorbic acid (vitamin C) 500 mg 500 mg PO QAM 07/19/20 06/12/25 07/12/22 History tablet (Vitamin C) cholecalciferol (vitamin D3) 50 50 mcg PO QAM 07/19/20 06/12/25 07/12/22 History mcg (2,000 unit) capsule (Vitamin D3) hydrocodone 5 mg-acetaminophen 325 1 tablet PO Q6-8H PRN Pain 07/19/20 06/12/25 07/15/22 22:00 History mg tablet gabapentin 300 mg capsule 900 mg PO HS 08/09/20 06/12/25 07/15/22 22:00 History cinnamon bark 500 mg capsule 1,000 mg PO QAM 04/25/21 06/12/25 07/12/22 History (Cinnamon) vitamin E mixed 400 unit capsule 400 unit PO QAM 04/25/21 06/12/25 07/12/22 History aspirin 81 mg tablet,delayed 81 mg PO QAM 06/27/22 06/12/25 07/09/22 History release calcium 600 mg capsule 1,200 mg PO QAM 06/27/22 06/12/25 07/12/22 History cranberry extract 200 mg capsule 4,200 mg PO DAILY 06/27/22 06/12/25 07/12/22 History garlic 500 mg capsule 500 mg PO DAILY 06/27/22 06/12/25 07/12/22 History magnesium 200 mg tablet 400 mg PO DAILY 06/27/22 06/12/25 07/12/22 History amlodipine 5 mg tablet 5 mg PO QPM 06/12/25 06/12/25 Unknown History hydrochlorothiazide 25 mg tablet 25 mg PO DAILY 06/12/25 06/12/25 Unknown History loperamide 2 mg capsule (Imodium 8 mg PO Q4H PRN loose stool 06/13/25 06/13/25 06/12/25 08:00 History A-D) 8 mg <Nicole Medina PA-C - Last Filed: 11/15/25 18:37> Allergies/Adverse reactions: Allergies Allergy/AdvReac Type Severity Reaction Status Date / Time gluten Allergy Mild Diarrhea & Verified 04/05/25 13:44 STOMACH UPSET levofloxacin AdvReac Diarrhea Verified 04/05/25 13:44 <VENU Maki Last Filed: 11/15/25 18:37> PENDING SALE TO [facility] Past Medical History Medical History: Medical History HTN (hypertension), benign History of skin cancer History of non-Hodgkin's lymphoma Primary osteoarthritis of right knee History of kidney cancer History of treatment for malignancy Discitis (~2019) Breast cancer Colon cancer History of vaginal delivery x 4 <VENU Maki Last Filed: 11/15/25 18:37> Surgical History Surgical History: Surgical History S/P shoulder surgery History of total right knee replacement (~11/06/21) Conformis History of meniscectomy of right knee (~02/02/14) Arthroscopic Partial Medial & Lateral History of total left hip arthroplasty (~09/12/04) History of total right hip arthroplasty (~03/12/06) Status post reverse arthroplasty of shoulder 05/08/[address] whitney, Rt Shoulder History of nephrectomy Right History of bladder surgery <VENU Maki Last Filed: 11/15/25 18:37> Family History Family History: Family History Sibling Patient's brother is Sibling Acute myocardial infarction Daughter Acute myocardial infarction, Onset Age: 55 COPD (chronic obstructive pulmonary disease) Smoker <VENU Maki Last Filed: 11/15/25 18:37> Social History Social History: Social History Social History: The patient lives with her . He is the durable power corporate attorney for healthcare. The patient is stating that she would like to be a DNR. The patient has 4 children. 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 Smoking status: Never smoker Second hand tobacco smoke exposure: No Additional smoking assessment comments: PT DENIES ALL FORMS OF TOBACCO USE Alcohol intake: never Substance use: never Substance use type: does not use Lack of Transportation: No Lack of Food: Never True Current Housing: I Have Housing Concerned About Future Housing: No Difficulty Paying Gas/Electric Bills: No Difficulty Paying for Meds: No Currently Unemployed: No Education: High School Diploma/GED Difficulty w/ Childcare or Family Care: No Living arrangements: with family Additional living arrangements comments: HUSB Gender identity (if verbalized by the patient): Female Spiritual care concerns: No <Nicole Medina PA-C - Last Filed: 11/15/25 18:37> Exam Narrative: GENERAL: Elderly, thin, and in no acute distress. HEAD: Normocephalic, atraumatic. CHEST: Clear to auscultation. ?No respiratory distress. HEART: Regular rate and rhythm.? warm extremities. 2+ pitting edema bilaterally worse on the right side. MSK: Marked pitting edema throughout RLE, TTP along medial calf. Mild pitting edema LLE. No signs of cellulitis besides some warmth. No erythema, streaking redness or fluctuance/weepage of fluid. No punctures or ulcers. NEURO: ?Alert and oriented x3. <Chuckie Layne MD - Last Filed: 11/16/25 07:44> Course Vital Signs Vital signs: Vital Signs Temperature 36.4 C 11/15/25 15:35 Pulse Rate 74 11/15/25 15:35 Respiratory Rate 17 11/15/25 15:35 Blood Pressure 137/77 11/15/25 15:35 Pulse Oximetry 97 11/15/25 15:35 Oxygen Delivery Room Air 11/15/25 15:35 Temperature 36.6 C 11/15/25 22:52 Pulse Rate 56 L 11/16/25 07:31 Respiratory Rate 13 11/16/25 07:31 Blood Pressure 104/51 L 11/16/25 07:31 Pulse Oximetry 100 11/16/25 01:17 Oxygen Delivery Room Air 11/15/25 15:35 <Nicole Medina PA-C - Last Filed: 11/15/25 18:37> Vital Signs Temperature 36.4 C 11/15/25 15:35 Pulse Rate 74 11/15/25 15:35 Respiratory Rate 17 11/15/25 15:35 Blood Pressure 137/77 11/15/25 15:35 Pulse Oximetry 97 11/15/25 15:35 Oxygen Delivery Room Air 11/15/25 15:35 Temperature 36.6 C 11/15/25 22:52 Pulse Rate 56 L 11/16/25 07:31 Respiratory Rate 13 11/16/25 07:31 Blood Pressure 104/51 L 11/16/25 07:31 Pulse Oximetry 100 11/16/25 01:17 Oxygen Delivery Room Air 11/15/25 15:35 <Stacey Mcdonald, PATTERN FINISHER - Last Filed: 11/15/25 19:16> Vital Signs Temperature 36.4 C 11/15/25 15:35 Pulse Rate 74 11/15/25 15:35 Respiratory Rate 17 11/15/25 15:35 Blood Pressure 137/77 11/15/25 15:35 Pulse Oximetry 97 11/15/25 15:35 Oxygen Delivery Room Air 11/15/25 15:35 Temperature 36.6 C 11/15/25 22:52 Pulse Rate 56 L 11/16/25 07:31 Respiratory Rate 13 11/16/25 07:31 Blood Pressure 104/51 L 11/16/25 07:31 Pulse Oximetry 100 11/16/25 01:17 Oxygen Delivery Room Air 11/15/25 15:35 <Chuckie Layne MD - Last Filed: 11/16/25 07:44> MDM MDM Narrative Medical decision making narrative: MSE by ALEX in triage <Nicole Medina PA-C - Last Filed: 11/15/25 18:37> MSE by ALEX in triage 1914- I was notified by the charge nurse that pt's potassium was 2.6. I added a magnesium level to pt's blood work. Pt's potassium will also be replaced orally until she is roomed in the ER. <Stacey Mcdonald, PATTERN FINISHER - Last Filed: 11/15/25 19:16> MSE by ALEX in triage 1914- I was notified by the charge nurse that pt's potassium was 2.6. I added a magnesium level to pt's blood work. Pt's potassium will also be replaced orally until she is roomed in the ER. 85-year-old female who presents the ED with report of swelling in her lower extremities. Reports she has had increased swelling to BLE over the past few days. Today she noticed that her right leg was much more swollen than the left and painful throughout her medial calf. Is on Lasix due to Hx of CHF, but denies improvement with this. Called her PCP today was referred to the ED for further evaluation. Patient denies increased shortness of breath. Denies chest pain. Denies previous history of blood clots. States she was started on Eliquis for 1 month after hospitalization in May, but was told she did not need to continue this medication. Marked pitting edema throughout RLE, TTP along medial calf. Mild pitting edema LLE. No signs of cellulitis besides some warmth. No erythema, streaking redness or fluctuance/weepage of fluid. No punctures or ulcers. Patient hemodynamically stable with normal vital signs here. Exam consistent with CHF exacerbation versus DVT versus hematoma in the calf. Laboratory studies and ultrasound were obtained. Ultrasound negative for DVT bilaterally. She does have hypo magnesemia hypokalemia. EKG is reassuring appearing without any ectopy. She is on Lasix with no changes in her regimen. I did discuss with her her derangements and fluid overload appearance needing hospitalization for correction of both but she declined this and wants to go home as she has a sick at home. Was amenable to receiving electrolyte replacements here and states she will follow-up with regular doctor. Once again offered her admission as my formal recommendations and the patient declined admit. She is able to make her own decisions and will be discharged after shared decision-making with the patient and family for close follow-up. <Chuckie Layne MD - Last Filed: 11/16/25 07:44> Differential Diagnosis Differential Diagnosis: Exam consistent with CHF exacerbation versus DVT versus hematoma in the calf. <Chuckie Layne MD - Last Filed: 11/16/25 07:44> Lab Data MDM Lab Attestation statement: I personally reviewed the patient's lab results. <Chuckie Lanye MD - Last Filed: 11/16/25 07:44> Result diagrams: 11/15/25 18:47 11/15/25 18:47 <Nicole Medina PA-C - Last Filed: 11/15/25 18:37> Labs: Lab Results 11/15/25 Range/Units 18:47 WBC 5.2 (4.5-10.0) K/mm3 RBC 3.23 L (4.2-5.4) M/mm3 Hgb 9.6 L (12.0-15.0) g/dL Hct 29.3 L (37.0-47.0) % MCV 90.7 (80-100) fl MCH 29.7 (26-34) pg MCHC 32.8 (32-36) g/dl RDW 15.5 H (11.5-14.5) % Plt Count 240 (150-375) k/mm3 MPV 9.3 (7.4-10.4) fl Immature Gran % (Auto) 0.4 (0-0.5) % Neut % (Auto) 58.5 (45.5-73.1) % Lymph % (Auto) 26.8 (18.3-44.2) % Mellette % (Auto) 9.8 H (2.6-8.5) % Eos % (Auto) 3.7 (0-4.4) % Baso % (Auto) 0.8 (0.2-1.2) % Lymph # (Auto) 1.39 (0.9-3.2) K/mm3 [place] # (Auto) 0.5 (0.1-0.6) K/mm3 Eos # (Auto) 0.2 (0-0.3) K/mm3 Baso # (Auto) 0.0 (0.0-0.1) K/mm3 Abs Immat Gran (auto) 0.02 (0.00-0.031) K/mm3 Absolute Neuts (auto) 3.0 (1.3-6.7) K/mm3 Absolute Nucleated RBC 0.000 (0.0-0.012) K/mm3 Nucleated RBC % 0.0 (0.0-0.2) % PT 14.8 H (11.1-14.7) Seconds INR 1.1 APTT 33.2 (22.3-36.8) Seconds Sodium 139 (137-145) mmol/L Potassium 2.6 L* (3.4-5.0) mmol/L Chloride 107 (98-107) mmol/L Carbon Dioxide 23 (22-30) mmol/L Anion Gap 9 (4-12) mmol/L BUN 53 H D (7-17) mg/dL Creatinine 2.10 H (0.7-1.0) mg/dL Estim Creat Clear Calc 16 ml/min Estimated GFR 22 L (59 - ) Glucose 85 (65-110) mg/dL Calcium 8.9 (8.4-10.2) mg/dL Magnesium 1.5 L (1.6-2.3) mg/dL Total Bilirubin 0.9 (0.2-1.3) mg/dL AST 44 H (14-36) U/L ALT 26 (6-35) U/L Alkaline Phosphatase 109 (38-126) U/L NT-Pro-B Natriuret Pep 2060 H (19.9-100) pg/mL Total Protein 7.1 (6.3-8.2) g/dL Albumin 3.7 (3.5-5.1) g/dL <Nicole Medina PA-C - Last Filed: 11/15/25 18:37> Lab Results 11/15/25 Range/Units 18:47 WBC 5.2 (4.5-10.0) K/mm3 RBC 3.23 L (4.2-5.4) M/mm3 Hgb 9.6 L (12.0-15.0) g/dL Hct 29.3 L (37.0-47.0) % MCV 90.7 (80-100) fl MCH 29.7 (26-34) pg MCHC 32.8 (32-36) g/dl RDW 15.5 H (11.5-14.5) % Plt Count 240 (150-375) k/mm3 MPV 9.3 (7.4-10.4) fl Immature Gran % (Auto) 0.4 (0-0.5) % Neut % (Auto) 58.5 (45.5-73.1) % Lymph % (Auto) 26.8 (18.3-44.2) % Mellette % (Auto) 9.8 H (2.6-8.5) % Eos % (Auto) 3.7 (0-4.4) % Baso % (Auto) 0.8 (0.2-1.2) % Lymph # (Auto) 1.39 (0.9-3.2) K/mm3 Mellette # (Auto) 0.5 (0.1-0.6) K/mm3 Eos # (Auto) 0.2 (0-0.3) K/mm3 Baso # (Auto) 0.0 (0.0-0.1) K/mm3 Abs Immat Gran (auto) 0.02 (0.00-0.031) K/mm3 Absolute Neuts (auto) 3.0 (1.3-6.7) K/mm3 Absolute Nucleated RBC 0.000 (0.0-0.012) K/mm3 Nucleated RBC % 0.0 (0.0-0.2) % PT 14.8 H (11.1-14.7) Seconds INR 1.1 APTT 33.2 (22.3-36.8) Seconds Sodium 139 (137-145) mmol/L Potassium 2.6 L* (3.4-5.0) mmol/L Chloride 107 (98-107) mmol/L Carbon Dioxide 23 (22-30) mmol/L Anion Gap 9 (4-12) mmol/L BUN 53 H D (7-17) mg/dL Creatinine 2.10 H (0.7-1.0) mg/dL Estim Creat Clear Calc 16 ml/min Estimated GFR 22 L (59 - ) Glucose 85 (65-110) mg/dL Calcium 8.9 (8.4-10.2) mg/dL Magnesium 1.5 L (1.6-2.3) mg/dL Total Bilirubin 0.9 (0.2-1.3) mg/dL AST 44 H (14-36) U/L ALT 26 (6-35) U/L Alkaline Phosphatase 109 (38-126) U/L NT-Pro-B Natriuret Pep 2060 H (19.9-100) pg/mL Total Protein 7.1 (6.3-8.2) g/dL Albumin 3.7 (3.5-5.1) g/dL <Stacey L. Tamara, PATTERN FINISHER - Last Filed: 11/15/25 19:16> Lab Results 11/15/25 Range/Units 18:47 WBC 5.2 (4.5-10.0) K/mm3 RBC 3.23 L (4.2-5.4) M/mm3 Hgb 9.6 L (12.0-15.0) g/dL Hct 29.3 L (37.0-47.0) % MCV 90.7 (80-100) fl MCH 29.7 (26-34) pg MCHC 32.8 (32-36) g/dl RDW 15.5 H (11.5-14.5) % Plt Count 240 (150-375) k/mm3 MPV 9.3 (7.4-10.4) fl Immature Gran % (Auto) 0.4 (0-0.5) % Neut % (Auto) 58.5 (45.5-73.1) % Lymph % (Auto) 26.8 (18.3-44.2) % Mellette % (Auto) 9.8 H (2.6-8.5) % Eos % (Auto) 3.7 (0-4.4) % Baso % (Auto) 0.8 (0.2-1.2) % Lymph # (Auto) 1.39 (0.9-3.2) K/mm3 Mellette # (Auto) 0.5 (0.1-0.6) K/mm3 Eos # (Auto) 0.2 (0-0.3) K/mm3 Baso # (Auto) 0.0 (0.0-0.1) K/mm3 Abs Immat Gran (auto) 0.02 (0.00-0.031) K/mm3 Absolute Neuts (auto) 3.0 (1.3-6.7) K/mm3 Absolute Nucleated RBC 0.000 (0.0-0.012) K/mm3 Nucleated RBC % 0.0 (0.0-0.2) % PT 14.8 H (11.1-14.7) Seconds INR 1.1 APTT 33.2 (22.3-36.8) Seconds Sodium 139 (137-145) mmol/L Potassium 2.6 L* (3.4-5.0) mmol/L Chloride 107 (98-107) mmol/L Carbon Dioxide 23 (22-30) mmol/L Anion Gap 9 (4-12) mmol/L BUN 53 H D (7-17) mg/dL Creatinine 2.10 H (0.7-1.0) mg/dL Estim Creat Clear Calc 16 ml/min Estimated GFR 22 L (59 - ) Glucose 85 (65-110) mg/dL Calcium 8.9 (8.4-10.2) mg/dL Magnesium 1.5 L (1.6-2.3) mg/dL Total Bilirubin 0.9 (0.2-1.3) mg/dL AST 44 H (14-36) U/L ALT 26 (6-35) U/L Alkaline Phosphatase 109 (38-126) U/L NT-Pro-B Natriuret Pep 2060 H (19.9-100) pg/mL Total Protein 7.1 (6.3-8.2) g/dL Albumin 3.7 (3.5-5.1) g/dL <Chuckie Layne MD - Last Filed: 11/16/25 07:44> Imaging Data Radiologist's impression: ITS Impressions Venous Doppler Study 11/15/25 19:19 IMPRESSION: There was no sonographic evidence of deep vein thrombosis in both lower extremities. <Nicole Medina PA-C - Last Filed: 11/15/25 18:37> ITS Impressions Venous Doppler Study 11/15/25 19:19 IMPRESSION: There was no sonographic evidence of deep vein thrombosis in both lower extremities. <Stacey Mcdonald APRN - Last Filed: 11/15/25 19:16> ITS Impressions Venous Doppler Study 11/15/25 19:19 IMPRESSION: There was no sonographic evidence of deep vein thrombosis in both lower extremities. <Chuckie Layne MD - Last Filed: 11/16/25 07:44> Discharge Plan Discharge Clinical Impression: Localized swelling of both lower legs, Acute hypokalemia, Hypomagnesemia <VENU Maki Last Filed: 11/15/25 18:37> Patient Disposition: Home <VENU Maki Last Filed: 11/15/25 18:37> Condition: Stable <Nicole Medina PA-C - Last Filed: 11/15/25 18:37> Instructions: Antibiotic Form <Nicole Medina PA-C - Last Filed: 11/15/25 18:37> Additional Instructions: Laboratory studies show low potassium and low magnesium and kidney injury, likely secondary to the Lasix that your currently on. We offered you and recommended admission to the hospital to help treat this in addition to your leg swelling but you declined. We have given you prescriptions for some potassium supplements and want you to follow-up with your primary care provider on a short-term basis for further recommendations and guidance. Please return with any new worsening or emergent concerns. <Nicole Medina PA-C - Last Filed: 11/15/25 18:37> Patient Language: Trinidadian <Nicole Medina PA-C - Last Filed: 11/15/25 18:37> Prescriptions: New potassium chloride [K-Tab] 20 mEq tablet extended release 20 meq PO DAILY Qty: 30 0RF No Action multivitamin [Daily Multi-Vitamin] Tablet 1 tablet PO DAILY cinnamon bark [Cinnamon] 500 mg Capsule 1,000 mg PO QAM vitamin E mixed 400 unit Capsule 400 unit PO QAM hydrocodone-acetaminophen 5-325 mg tablet 1 tablet PO Q6-8H PRN (Reason: Pain) ascorbic acid (vitamin C) [Vitamin C] 500 mg Tablet 500 mg PO QAM Patient Comments: TAKES 2 TABS DAILY cholecalciferol (vitamin D3) [Vitamin D3] 50 mcg (2,000 unit) Capsule 50 mcg PO QAM gabapentin 300 mg capsule 900 mg PO HS calcium 600 mg Capsule 1,200 mg PO QAM aspirin 81 mg Tablet,Delayed Release (Dr/Ec) 81 mg PO QAM garlic 500 mg Capsule 500 mg PO DAILY magnesium 200 mg Tablet 400 mg PO DAILY cranberry extract 200 mg Capsule 4,200 mg PO DAILY Rx Instructions: administer with a meal amlodipine 5 mg tablet 5 mg PO QPM hydrochlorothiazide 25 mg tablet 25 mg PO DAILY loperamide [Imodium A-D] 2 mg capsule 8 mg PO Q4H PRN (Reason: loose stool) Patient Comments: Patient states her colon specialist lets her take up to 35 mg loperamide daily. Patient has hx of colon cancer and bowel resection. Rx Instructions: administer after each loose stool until symptoms controlled; do not exceed 8 mg per 24 hrs Eliquis 5 mg Tablet 10 mg PO Q12HR Qty: 12 0RF apixaban 5 mg tablet 5 mg PO BID Qty: 60 0RF <Nicole Medina PA-C - Last Filed: 11/15/25 18:37> Follow-up/Referrals: Pily,Ambrocio Murillo MD [Primary Care Provider] <Nicole Medina PA-C - Last Filed: 11/15/25 18:37> Time of Disposition: 04:41 <Nicole Medina PA-C - Last Filed: 11/15/25 18:37> 04:41 <Stacey Mcdonald APRN - Last Filed: 11/15/25 19:16> 04:41 <Chuckie Layne MD - Last Filed: 11/16/25 07:44>
[2025-11-15 18:54] LABS: Hematocrit 29.3 % (37.0-47.0); Hemoglobin 9.6 g/dL (12.0-15.0); Immature Granulocyte Percent A 0.4 % (0-0.5); Lymphocytes Absolute Auto 1.39 K/mm3 (0.9-3.2); Mean Corpuscular HGB Conc 32.8 g/dl (32-36); Mean Corpuscular Hemoglobin 29.7 pg (26-34); Mean Corpuscular Volume 90.7 fl (80-100); Nucleated Red Blood Cells Absolute Auto 0.000 K/mm3 (0.0-0.012); Nucleated Red Blood Cells Perc 0.0 % (0.0-0.2); Platelet Count Result 240 k/mm3 (150-375); Red Blood Count 3.23 M/mm3 (4.2-5.4); White Blood Count 5.2 K/mm3 (4.5-10.0)
[2025-11-15 19:09] LABS: Alanine Aminotransferase 26 U/L (6-35); Albumin Level 3.7 g/dL (3.5-5.1); Alkaline Phosphatase 109 U/L (38-126); Anion Gap 9 mmol/L (4-12); Aspartate Amino Transferase 44 U/L (14-36); Bilirubin,Total 0.9 mg/dL (0.2-1.3); Blood Urea Nitrogen 53 mg/dL (7-17); Calcium 8.9 mg/dL (8.4-10.2); Carbon Dioxide 23 mmol/L (22-30); Chloride 107 mmol/L (98-107); Estimated CRCL calculation 16 ml/min; Estimated Glomerular Filt Rate 22; Glucose 85 mg/dL (65-110); Potassium 2.6 mmol/L (3.4-5.0); Sodium 139 mmol/L (137-145); Total Protein 7.1 g/dL (6.3-8.2)
[2025-11-15 19:15] LABS: NT Pro B Type Natriuretic Pept 2060 pg/mL (19.9-100)
[2025-11-15 19:20] LABS: INR 1.1; Partial Thromboplastin Time 33.2 Seconds (22.3-36.8); Prothrombin Time 14.8 Seconds (11.1-14.7)
[2025-11-15 19:28] LABS: Magnesium 1.5 mg/dL (1.6-2.3)
[2025-11-15 22:52] VITALS: BP 119/51; PULSE 67; RESP 18; TEMP 36.6; O2SAT 98
[2025-11-16] VITALS (12 sets, daily range): BP systolic 97–131; BP diastolic 44–66; PULSE 53–71; RESP 11–20; O2SAT 100
--- NOTE | 2025-11-16 00:06 | ECG_ITS ---
Test Date: 2025-11-16 01:41:42 Measurements Intervals [place] Rate: 58 P: 71 MI: 215 QRS: -44 QRSD: 135 T: 91 QT: 491 QTc: 486 Interpretive Statements SINUS BRADYCARDIA WITH FIRST DEGREE AV BLOCK WITH OCCASIONAL SUPRAVENTRICULAR PREMATURE COMPLEXES LEFT AXIS DEVIATION CANNOT R/O SEPTAL INFARCT, AGE INDETERMINATE CONSIDER HIGH LATERAL INFARCT, AGE INDETERMINATE BASELINE ARTIFACT- II, III, AVR, AVF, V1 ABNORMAL ECG Compared to ECG 06/13/2025 05:40:02 Heart rate has increased First degree AV block now present Electronically Signed On 11-16-2025 09:16:10 SPRING FORMER by Galdino Borjas D.O.
[2025-11-16] MEDS: POTASSIUM CHLORIDE INJ 40 MEQ in SODIUM CHLORIDE 0.9% IV 500 ML 130 MEQ IVPB (01:38)
[2025-11-16] MEDS: POTASSIUM CHLORIDE 20 MEQ PACKET (FOR LIQUID) 40 MEQ PO (01:38)
[2025-11-16] MEDS: MAGNESIUM SULF 2 GM/WATER 50ML 2 GM/50 ML BAG IVPB (01:40)
== END 2025-11-16 07:51 | disposition home or self-care (01) ==
PROVIDERS: Physician Assistant; Emergency Provider Student in an Organized Health Care Education/Training Program; PCP Internal Medicine
DX: R22.43 Localized swelling, mass and lump, lower limb, bilateral (principal); E87.6 Hypokalemia; E83.42 Hypomagnesemia; I50.9 Heart failure, unspecified; I11.0 Hypertensive heart disease with heart failure; M17.11 Unilateral primary osteoarthritis, right knee; Z66 Do not resuscitate; Z96.611 Presence of right artificial shoulder joint; Z96.651 Presence of right artificial knee joint; Z96.643 Presence of artificial hip joint, bilateral; Z85.828 Personal history of other malignant neoplasm of skin; Z85.72 Personal history of non-Hodgkin lymphomas; Z85.528 Personal history of other malignant neoplasm of kidney; Z85.3 Personal history of malignant neoplasm of breast; Z85.038 Personal history of other malignant neoplasm of large intestine; Z90.5 Acquired absence of kidney; Z79.82 Long term (current) use of aspirin; Z79.899 Other long term (current) drug therapy; Z79.01 Long term (current) use of anticoagulants; R00.1 Bradycardia, unspecified; I44.0 Atrioventricular block, first degree; R94.31 Abnormal electrocardiogram [ECG] [EKG]
CPT/HCPCS: 36415; 80053; 83735; 83880; 85025; 85610; 85730; 93005; 93970; 96365; 96366; 96368; 99284; A9270; J3475; J3480; J7040